=== PATIENT | female | born 1945 | race Caucasian/White ===

== ENCOUNTER → 2017-07-13 | Outpatient (CLI) | payer OTHER ==
[2017-07-13 17:24] LABS: URINE APPEARANCE CLOUDY (CLEAR); URINE COLOR DK YELLOW; URINE EPITHELIAL CELL AUTO >30 /lpf (0-5); URINE NITRITE NEG (NEG); URINE SPECIFIC GRAVITY 1.024 (1.000-1.030); UROBILINOGEN NEG (NEG)
[2017-07-13 17:40] LABS: MANUAL MICROSCOPIC REQUIRED? NO; REVIEW REQ? YES; URINE BILIRUBIN 1+ (NEG)
[2017-07-13 17:55] LABS: URINE MUCUS PRESENT (NONE PRSENT)
== END | disposition home or self-care (01) ==
LOC: C.LABPBG 12:08
PROVIDERS: ATTEND Family Medicine
DX: R30.0 Dysuria (principal)

== ENCOUNTER → 2017-07-26 | Outpatient (CLI) | payer OTHER ==
[~2017-07-26] MED LIST: METO25TA3 PO
[2017-07-26 17:34] LABS: BASO % 0.3 %; BASO ABS # 0.03 K/uL (0-0.2); COMPLETE YES; EOS % 0.7 %; HEMATOCRIT 44.5 % (37-47); IG% 0.3 %; LYMPH % 33.7 %; LYMPH ABS # 3.16 K/uL (1.2-3.4); MEAN CELL VOLUME 93.5 fL (80-100); MEAN CORPUSCULAR HEMOGLOBIN 30.3 pg (25-34); MEAN CORPUSCULAR HGB CONC 32.4 g/dl (32-36); MEAN PLATELET VOLUME 12.9 fL (7.4-10.4); MONO % 10.8 %; NEUT % 54.2 %; PLATELET COUNT 238 K/uL (130-400); RED BLOOD COUNT 4.76 M/uL (4.2-5.4); WHITE BLOOD COUNT 9.37 K/uL (4.8-10.8)
[2017-07-26 17:59] LABS: ALT/SGPT 15 U/L (12-78); AST/SGOT 19 U/L (15-37); BLOOD UREA NITROGEN 14 mg/dl (7-18); BUN/CREATININE RATIO 25.2 (10-20); CALCIUM 8.6 mg/dl (8.5-10.1); CARBON DIOXIDE 33 mmol/L (21-32); CHLORIDE 97 mmol/L (98-107); CREATININE 0.56 mg/dl (0.60-1.20); GLUCOSE 102 mg/dl (70-99); MAGNESIUM 2.1 mg/dl (1.8-2.4); POTASSIUM 2.8 mmol/L (3.5-5.1); SODIUM 135 mmol/L (136-145)
[2017-07-26 18:01] LABS: ALKALINE PHOSPHATASE 71 U/L (45-117)
== END | disposition home or self-care (01) ==
LOC: C.LABPBG 14:38
PROVIDERS: ATTEND Family Medicine
DX: E87.6 Hypokalemia (principal); R11.2 Nausea with vomiting, unspecified; K80.20 Calculus of gallbladder without cholecystitis without obstruction

== ENCOUNTER 2017-07-27 09:28 | Emergency (ER) | payer OTHER ==
[~2017-07-27] VITALS: Ht 165.1 cm; Wt 60.0 kg
[2017-07-27 09:35] VITALS: TEMP 36.9; Ht 165.1 cm; Wt 60.0 kg
[2017-07-27] MEDS ORDERED: POTASSIUM CHLR 20 MEQ / WTR 40 MEQ in PREMIXED WATER 100 ML IV STA (09:55)
[2017-07-27] MEDS ORDERED: SODIUM CHLORIDE 0.9% 1000ML 1,000 ML IV STA (09:55)
[2017-07-27] MEDS ORDERED: POTASSIUM CHLORIDE 10 MEQ TABCR PO STA (09:55)
--- NOTE | 2017-07-27 10:15 | EMERGENCY ROOM VISIT NOTE ---
History Report prepared by Roz: Nidhi Harkins Under the Supervision of: Dr. Yovanny Cardona M.D. First contact with patient: 09:46 Chief Complaint: ABNORMAL LABS Stated Complaint: LOW POTASSIUM-REF BY History of Present Illness The patient is a 72 year old female who presents to the Emergency Room with evaluation for persistent low potassium at 2.8 [employer]. She was seen by her PCP to have her blood drawn yesterday and was notified to come in to the ED to be evaluated for low potassium levels. She reports having her blood checked last week, which also showed low potassium levels. She notes having intermittent nausea, vomiting, and diarrhea for the last month, which she assumed was due to her bladder infection. She also reports intermittent loss of appetite, fatigue, and congestion with a "stuffy nose." She notes the last time she vomited was two days ago and the last time she had diarrhea was yesterday. She has been taking antibiotics. She denies taking any potassium supplements or blood thinners. She takes blood pressure medication. She denies any fevers, headaches , dizziness, chills, coughs, abdominal pain, or dysuria. She notes only having lower abdominal pressure with her UTI, but never any pain, though the pressure has resolved. She reports a recent history of gallbladder stones She also reports having lost 18 pounds in the last month, which she states is abnormal for her. 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 She reports 18 pound weight loss. Review of Systems See HPI for pertinent positives and negatives. A total of ten systems were reviewed and were otherwise negative. Past Medical & Surgical Medical Problems: (1) Hypokalemia (2) Influenza A UTI (urinary tract infection) Family History no pertinent family history obtained. Social History Smoking Status: Current Every Day Smoker Drug Use: none Housing Status: lives with family Occupation Status: unemployed Current/Historical Medications Scheduled Metoprolol Succ (Toprol Xl) (Toprol-Xl), 25 MG PO DAILY Allergies Coded Allergies: Codeine (Unverified Adverse Reaction, Intermediate, STOMACH PAIN, 07/27/17) Physical Exam Vital Signs Date Time Temp Pulse Resp B/P (MAP) Pulse Ox O2 Delivery O2 Flow Rate FiO2 07/27/17 15:08 74 22 128/75 94 07/27/17 14:01 73 20 195/76 95 Room Air 07/27/17 12:09 76 20 211/66 95 Room Air 07/27/17 11:39 64 20 201/98 98 07/27/17 10:37 69 20 205/91 98 07/27/17 10:30 68 07/27/17 09:35 36.9 78 20 105/55 95 Room Air Physical Exam GENERAL: Awake, alert, fatigue appearing and in no distress HENT: Normocephalic, atraumatic. Oropharynx unremarkable. Dry cracked mucus membranes. EYES: Normal conjunctiva. Sclera non-icteric. NECK: Supple. No nuchal rigidity. FROM. No JVD. RESPIRATORY: Clear to auscultation. CARDIAC: Regular rate, normal rhythm. Extremities warm and well perfused. Pulses equal. ABDOMEN: Soft, non-distended. No tenderness to palpation. No rebound or guarding. No masses. RECTAL: Deferred. MUSCULOSKELETAL: Chest examination reveals no tenderness. The back is symmetrical on inspection without obvious abnormality. There is no CVA tenderness to palpation. No joint edema. LOWER EXTREMITIES: Calves are equal size bilaterally and non-tender. No edema. No discoloration. NEURO: Normal sensorium. No sensory or motor deficits noted. Negative [place] signs. SKIN: No rash or jaundice noted. Medical Decision & Procedures Laboratory Results 07/27/17 09:55 Red Blood Count 4.70, Mean Corpuscular Volume 91.5, Mean Corpuscular Hemoglobin 29.6, Mean Corpuscular Hemoglobin Concent 32.3, Mean Platelet Volume 12.1, Neutrophils (%) (Auto) 51.0, Lymphocytes (%) (Auto) 36.8, Monocytes (%) (Auto) 11.2, Eosinophils (%) (Auto) 0.5, Basophils (%) (Auto) 0.3, Neutrophils # (Auto ) 4.52, Lymphocytes # (Auto) 3.26, Monocytes # (Auto) 0.99, Eosinophils # (Auto ) 0.04, Basophils # (Auto) 0.03 07/27/17 09:55 Test 07/27/17 09:55 07/27/17 12:13 07/27/17 12:20 White Blood Count 8.86 K/uL (4.8-10.8) Red Blood Count 4.70 M/uL (4.2-5.4) Hemoglobin 13.9 g/dL (12.0-16.0) Hematocrit 43.0 % (37-47) Mean Corpuscular Volume 91.5 fL (80-100) Mean Corpuscular Hemoglobin 29.6 pg (25-34) Mean Corpuscular Hemoglobin Concent 32.3 g/dl (32-36) Platelet Count 227 K/uL (130-400) Mean Platelet Volume 12.1 fL (7.4-10.4) Neutrophils (%) (Auto) 51.0 % Lymphocytes (%) (Auto) 36.8 % Monocytes (%) (Auto) 11.2 % Eosinophils (%) (Auto) 0.5 % Basophils (%) (Auto) 0.3 % Neutrophils # (Auto) 4.52 K/uL (1.4-6.5) Lymphocytes # (Auto) 3.26 K/uL (1.2-3.4) Monocytes # (Auto) 0.99 K/uL (0.11-0.59) Eosinophils # (Auto) 0.04 K/uL (0-0.5) Basophils # (Auto) 0.03 K/uL (0-0.2) RDW Standard Deviation 46.5 fL (36.4-46.3) RDW Coefficient of Variation 13.9 % (11.5-14.5) Immature Granulocyte % (Auto) 0.2 % Immature Granulocyte # (Auto) 0.02 K/uL (0.00-0.02) Anion Gap 8.0 mmol/L (3-11) Est Creatinine Clear Calc Drug Dose 89.7 ml/min Estimated GFR () 111.3 Estimated GFR (Non- 96.1 BUN/Creatinine Ratio 17.8 (10-20) Calcium Level 8.8 mg/dl (8.5-10.1) Phosphorus Level 3.1 mg/dl (2.5-4.9) Magnesium Level 2.2 mg/dl (1.8-2.4) Total Bilirubin 0.6 mg/dl (0.2-1) Direct Bilirubin 0.2 mg/dl (0-0.2) Aspartate Amino Transf (AST/SGOT) 16 U/L (15-37) Alanine Aminotransferase (ALT/SGPT) 13 U/L (12-78) Alkaline Phosphatase 71 U/L (45-117) Total Protein 7.0 gm/dl (6.4-8.2) Albumin 3.5 gm/dl (3.4-5.0) Lipase 118 U/L (73-393) Influenza Type A Antigen POS for Influ A (NEG) Influenza Type B Antigen Neg for Influ B (NEG) Urine Color YELLOW Urine Appearance CLEAR (CLEAR) Urine pH 7.5 (4.5-7.5) Urine Specific [place] 1.005 (1.000-1.030) Urine Protein NEG (NEG) Urine Glucose (UA) NEG (NEG) Urine Ketones NEG (NEG) Urine Occult Blood NEG (NEG) Urine Nitrite NEG (NEG) Urine Bilirubin NEG (NEG) Urine Urobilinogen NEG (NEG) Urine Leukocyte Esterase TRACE (NEG) Urine WBC (Auto) 1-5 /hpf (0-5) Urine RBC (Auto) 0-4 /hpf (0-4) Urine Hyaline Casts (Auto) 1-5 /lpf (0-5) Urine Epithelial Cells (Auto) 20-30 /lpf (0-5) Urine Bacteria (Auto) NEG (NEG) Laboratory results reviewed by me Medications Administered Medications (Trade) Dose Ordered Sig/Rhoda Route Start Time Stop Time Status Last Admin Dose Admin Potassium Chloride (Klor-Con M10) 40 meq NOW STAT PO 07/27/17 09:55 07/27/17 09:59 DC 07/27/17 10:35 40 MEQ Sodium Chloride 1,000 ml @ 250 mls/hr Q4H STAT IV 07/27/17 09:55 07/27/17 13:54 DC 07/27/17 10:35 250 MLS/HR Potassium Chloride 10 meq/ Prmx 100 ml @ 100 mls/hr Q1H IV 07/27/17 10:00 07/27/17 13:59 DC 07/27/17 14:00 100 MLS/HR Metoprolol Succinate (Toprol Xl Tab) 25 mg NOW STAT PO 07/27/17 13:02 07/27/17 13:03 DC 07/27/17 13:22 25 MG ED Course 0946: The patient was evaluated in room A11B. A complete history and physical exam was performed. 1033: I reassessed the patient at this time. She is feeling better and resting comfortably. 1400: I reassessed the patient at this time. She is feeling better and resting comfortably. I discussed the results and treatment plan with the patient. I answered all pertaining questions that she had. She expressed understanding and verbalized agreement. The patient will be discharged home. Medical Decision I reviewed the patient's past medical history, medications, and the nursing notes as described above. Differential diagnoses: dehydration, electrolytes abnormality, UTI, gastritis, and gastroenteritis. The patient is a 72-year-old woman presents to emergency department after having outpatient labs that showed a potassium of 2.8 in the setting of having a UTI last month with subsequent intermittent nausea and vomiting and diarrhea per history of present illness. On arrival the patient is fatigued appearing but in no acute distress, afebrile stable vital signs. On exam she is clinically dry with dry cracked mucous membranes. Labs notable for potassium of 3.0. Labs otherwise unremarkable. Patient was given 40meq of IV and PO KCl. Plan for recheck outpatient. Findings and plan for follow-up reviewed with patient. Patient agreeable and d/c'd per discharge instructions. Medication Reconcilliation Current Medication List: was personally reviewed by me Blood Pressure Screening Patient's blood pressure: Elevated blood pressure Blood pressure disposition: Elevated BP felt to be situational Impression Primary Impression: Hypokalemia Additional Impression: Influenza A Scribe Attestation The scribe's documentation has been prepared under my direction and personally reviewed by me in its entirety. I confirm that the note above accurately reflects all work, treatment, procedures, and medical decision making performed by me. Departure Information Dispostion Home / Self-Care Referrals No Doctor, Assigned (PCP) Forms HOME CARE DOCUMENTATION FORM, IMPORTANT VISIT INFORMATION, WORK / SCHOOL INSTRUCTIONS Patient Instructions Hypokalemia Emelyn Kumar [facility] Additional Instructions Please follow up with your primary care physician tomorrow for re-evaluation and to repeat your potassium. You flu test was positive for infuenza A. The treatment for this is supportive and ensuring you stay hydrated. Otherwise, your exam, EKG, and lab results did not show signs of an emergent condition at this time. Use daily multivitamin. Return to the emergency department for worsening symptoms as described in the accompanying instructions. Problem Qualifiers
[2017-07-27 10:19] LABS: BASO % 0.3 %; BASO ABS # 0.03 K/uL (0-0.2); COMPLETE YES; EOS % 0.5 %; IG% 0.2 %; LYMPH % 36.8 %; LYMPH ABS # 3.26 K/uL (1.2-3.4); MEAN CELL VOLUME 91.5 fL (80-100); MEAN CORPUSCULAR HEMOGLOBIN 29.6 pg (25-34); MEAN CORPUSCULAR HGB CONC 32.3 g/dl (32-36); MEAN PLATELET VOLUME 12.1 fL (7.4-10.4); MONO % 11.2 %; PLATELET COUNT 227 K/uL (130-400); WHITE BLOOD COUNT 8.86 K/uL (4.8-10.8)
[2017-07-27] MEDS: POTASSIUM CHLR 10MEQ / WTR IV SCH ×4 (10:37→14:00)
[2017-07-27 10:40] LABS: BUN/CREATININE RATIO 17.8 (10-20); CALCIUM 8.8 mg/dl (8.5-10.1); CREATININE 0.51 mg/dl (0.60-1.20); MAGNESIUM 2.2 mg/dl (1.8-2.4)
[2017-07-27 10:41] LABS: PHOSPHORUS 3.1 mg/dl (2.5-4.9)
[2017-07-27] MEDS ORDERED: METO25TA3 PO (11:01)
[2017-07-27 12:40] LABS: URINE APPEARANCE CLEAR (CLEAR); URINE BILIRUBIN NEG (NEG); URINE COLOR YELLOW; URINE EPITHELIAL CELL AUTO 20-30 /lpf (0-5); URINE NITRITE NEG (NEG); URINE PH 7.5 (4.5-7.5); URINE SPECIFIC GRAVITY 1.005 (1.000-1.030); UROBILINOGEN NEG (NEG); ZZUR CULT IF INDIC CLEAN CATCH NO
[2017-07-27 12:56] LABS: MANUAL MICROSCOPIC REQUIRED? NO; REVIEW REQ? NO
[2017-07-27] MEDS ORDERED: METOPROLOL SUCC 50MG EXT REL TAB PO STA (13:02)
[2017-07-27 15:08] VITALS: BP 128/75; PULSE 74; O2SAT 94
== END 2017-07-27 15:09 | disposition home or self-care (01) ==
LOC: C.EDB 09:29 → C.EDA 15:09
DX: E87.6 Hypokalemia (principal); J10.1 Influenza due to other identified influenza virus with other respiratory manifestations; Z87.440 Personal history of urinary (tract) infections; F17.210 Nicotine dependence, cigarettes, uncomplicated; Z79.899 Other long term (current) drug therapy

== ENCOUNTER → 2017-07-28 | Outpatient (CLI) | payer OTHER ==
[2017-07-28 12:21] LABS: BLOOD UREA NITROGEN 8 mg/dl (7-18); BUN/CREATININE RATIO 16.8 (10-20); CALCIUM 8.6 mg/dl (8.5-10.1); CARBON DIOXIDE 30 mmol/L (21-32); CHLORIDE 104 mmol/L (98-107); CREATININE 0.48 mg/dl (0.60-1.20); GLUCOSE 95 mg/dl (70-99); POTASSIUM 3.4 mmol/L (3.5-5.1); SODIUM 140 mmol/L (136-145)
== END | disposition home or self-care (01) ==
LOC: C.LABPBG 10:07
PROVIDERS: ATTEND Family Medicine
DX: E87.6 Hypokalemia (principal)

== ENCOUNTER → 2017-08-19 | Outpatient (CLI) | payer OTHER ==
[~2017-08-19] MED LIST changes: +LISI-461 PO; +METO-217 PO; +OPTIRAY 320 IV PRN; +SULF800T23 PO
--- NOTE | 2017-08-19 12:26 | DIAGNOSTIC IMAGING REPORT ---
CT ANGIOGRAPHY OF THE NECK WITH CONTRAST CLINICAL HISTORY: Occlusion and stenosis of bilateral carotid arteries. COMPARISON STUDY: No previous studies for comparison. Technique: CT angiography of the carotid and vertebral arteries was obtained using Optiray 320 IV and 3D reconstruction on an independent workstation. NASCET criteria was utilized. A dose lowering technique was utilized adhering to the principles of ALARA. Injection of 93 cc of Optiray 320 IV was uneventful. The neck was rescanned given motion artifact on initial study. No additional contrast was administered. CT DOSE: 1951.37 mGycm Findings: This exam is significantly compromised by motion artifact. The origins of the great vessels were not entirely imaged on this examination. There is extensive atherosclerotic plaque within the bilateral common carotid and internal carotid arteries. There is no significant stenosis of the right common carotid artery. There is narrowing of the proximal right internal carotid artery due to calcified plaque. However, the degree of stenosis is suboptimally assessed due to motion artifact. There is suspected 40-50% narrowing of the proximal right internal carotid artery. There may be severe stenosis at the origin of the right external carotid artery which is difficult to assess on this exam. There is extensive plaque within the left common carotid artery which may be ulcerated. This results in mild narrowing of the distal left common carotid artery. There is extensive plaque within the proximal left internal carotid artery. Degree of stenosis is difficult to assess given motion artifact and extensive calcification. Moderate to severe stenosis is suspected. Short segment occlusion cannot be excluded. The internal carotid arteries at the level the skull base are suboptimally assessed on this exam as well. The origins of the bilateral vertebral arteries are suboptimally assessed but these vessels appear patent. There is moderate plaque within the bilateral vertebral arteries without severe stenosis within visualized portions. Several thyroid nodules. IMPRESSION: 1. Exam significantly compromised by motion artifact and extensive calcified plaque. Therefore, degree of stenosis of the proximal bilateral internal carotid arteries is difficult to assess and a repeat study might be considered. Suspected 40-50% narrowing of the proximal right internal carotid artery with suspected moderate to high-grade stenosis of the proximal left internal carotid artery. Short segment occlusion of the proximal left internal carotid artery cannot be excluded on this exam although is probably artifactual. 2. Origins of great vessels not well evaluated on this exam. No severe stenosis of the bilateral vertebral arteries. Electronically signed by: Lisandro Piña M.D. 08/19/2017 12:24 PM Dictated Date/Time: 08/19/2017 10:37 AM
== END | disposition home or self-care (01) ==
LOC: C.CTS 09:56
PROVIDERS: ATTEND Physician Assistant
DX: I65.23 Occlusion and stenosis of bilateral carotid arteries (principal)

== ENCOUNTER 2017-08-25 11:51 | Emergency (ER) | payer OTHER ==
[~2017-08-25] VITALS: Ht 165.1 cm; Wt 56.8 kg
[~2017-08-25 11:51] MED LIST changes: -LISI-461 PO; -METO-217 PO; -OPTIRAY 320 IV PRN; -SULF800T23 PO
[2017-08-25 11:54] VITALS: TEMP 36.9; Ht 165.1 cm; Wt 56.8 kg
[2017-08-25] MEDS ORDERED: ONDANSETRON INJ 2 MG/ML 2 ML VIAL IV STA (12:13)
[2017-08-25] MEDS ORDERED: SODIUM CHLORIDE 0.9% 500ML 500 ML IV STA (12:13)
[2017-08-25 12:33] LABS: BASO % 0.2 %; BASO ABS # 0.03 K/uL (0-0.2); EOS % 0.3 %; EOS ABS # 0.04 K/uL (0-0.5); HEMATOCRIT 44.8 % (37-47); HEMOGLOBIN 15.3 g/dL (12.0-16.0); IG# 0.05 K/uL (0.00-0.02); LYMPH % 20.9 %; LYMPH ABS # 3.06 K/uL (1.2-3.4); MEAN CORPUSCULAR HEMOGLOBIN 31.4 pg (25-34); MEAN CORPUSCULAR HGB CONC 34.2 g/dl (32-36); MEAN PLATELET VOLUME 12.1 fL (7.4-10.4); MONO % 9.7 %; MONO ABS # 1.41 K/uL (0.11-0.59); NEUT % 68.6 %; NEUT ABS # 10.02 K/uL (1.4-6.5); PLATELET COUNT 256 K/uL (130-400); RED CELL DISTRIBUTION WIDTH CV 14.2 % (11.5-14.5); RED CELL DISTRIBUTION WIDTH SD 47.5 fL (36.4-46.3); WHITE BLOOD COUNT 14.61 K/uL (4.8-10.8)
[2017-08-25 12:45] LABS: PTT PATIENT 24.7 SECONDS (21.0-31.0)
[2017-08-25 12:57] LABS: ALBUMIN 3.8 gm/dl (3.4-5.0); CALCIUM 9.3 mg/dl (8.5-10.1); CREATININE 0.57 mg/dl (0.60-1.20); POTASSIUM 2.9 mmol/L (3.5-5.1)
[2017-08-25] MEDS ORDERED: LISI-461 PO (13:00)
[2017-08-25] MEDS ORDERED: METO-217 PO (13:00)
[2017-08-25 13:01] LABS: TOTAL PROTEIN 7.7 gm/dl (6.4-8.2)
[2017-08-25] MEDS ORDERED: POTASSIUM CHLORIDE 10 MEQ TABCR PO STA (13:22)
[2017-08-25] MEDS ORDERED: POTASSIUM CHLORIDE 10 MEQ / 100ML WTR IV STA (13:22)
--- NOTE | 2017-08-25 13:22 | DIAGNOSTIC IMAGING REPORT ---
CT SCAN OF THE ABDOMEN AND PELVIS WITHOUT IV CONTRAST CLINICAL HISTORY: Left-sided abdominal pain. COMPARISON STUDY: No priors. TECHNIQUE: CT scan of the abdomen and pelvis is performed from the lung bases to the proximal femora. Images are reviewed in the axial, sagittal, and coronal planes. IV contrast was not administered for this examination as per the referring clinician. A dose lowering technique was utilized adhering to the principles of ALARA. CT DOSE: 352.26 mGy.cm FINDINGS: Lung bases: The heart is mildly enlarged and without pericardial effusion. Emphysematous change is present at the lung bases. There is a fat-containing Bochdalek hernia seen at the left lung base. No airspace consolidation or pleural effusion is identified. There is a 4 mm left lower lobe pulmonary nodule seen on image #23. Liver: The unenhanced liver is normal in size, contour, and attenuation. There is no intrahepatic biliary ductal dilatation. Gallbladder: A large calcified gallstone is seen in the region of the gallbladder neck. The gallbladder is distended. There is no convincing CT evidence of acute cholecystitis. Spleen: Normal in size and attenuation. Pancreas: The unenhanced pancreas is atrophic and grossly unremarkable. Adrenal glands: There is nodular thickening of the left adrenal gland. This meets CT criteria for a fat-containing adenoma. The right adrenal gland is unremarkable. Kidneys: The unenhanced kidneys are normal in size. There is no right-sided hydronephrosis. There is mild fullness of the left renal collecting system. There are no renal calculi identified. Renovascular calcifications are observed. There is no evidence of contour deforming renal mass lesion. Abdominal vasculature: The abdominal aorta is normal in course and caliber noting advanced atherosclerotic calcification. Bowel: There is no bowel obstruction. Mild wall thickening is suggested in the sigmoid colon and there are prominent pericolonic lymph nodes. There is mild colonic diverticulosis without CT evidence of acute diverticulitis. The appendix is well-visualized and normal. Peritoneum: There is no intraperitoneal free air or abdominal ascites. Lymphadenopathy: None. Pelvic viscera: The bladder, uterus, and adnexa are normal as visualized. Skeletal structures: The skeletal structures are osteopenic. Advanced arthritic change is present in the hips. Mild to moderate lumbosacral spondylosis is observed. A large disc herniation is suggested at L3-L4. Sclerotic change is identified involving the sacroiliac joints. No lytic or blastic lesions are seen. IMPRESSION: 1. There is mild fullness of the left renal collecting system. No renal calculi are identified and this is of indeterminate, if any, clinical significance. This could possibly represent the sequelae of a recently passed kidney stone or could be related to infection. Correlation with clinical findings and urinalysis will be essential. 2. Question mild wall thickening of the sigmoid colon. There are prominent pericolic lymph nodes. Correlate clinically for evidence of a mild nonspecific colitis. This can be followed with colonoscopy if not recently performed. 3. Advanced emphysema. 4. There is a large calcified gallstone in the region of the gallbladder neck. The gallbladder is mildly distended but otherwise normal in appearance. Correlation with clinical findings and serum bilirubin levels will be required. If further assessment of the gallbladder is desired then ultrasound would be appropriate. 5. There is a 4 mm pulmonary nodule at the left lung base. Consider nonemergent follow-up assessment of the thorax with a chest CT. 6. Additional findings as above. Electronically signed by: Derek Cheatham M.D. 08/25/2017 1:21 PM Dictated Date/Time: 08/25/2017 1:11 PM
[2017-08-25] MEDS ORDERED: POTASSIUM CHLR 10MEQ / WTR IV ONE (14:00)
[2017-08-25] MEDS ORDERED: SULFAMETHOXAZOLE/TRIMETHOPRIM DS 800/160MG TAB PO STA (14:03)
[2017-08-25 15:03] VITALS: BP 150/83; PULSE 85; O2SAT 95
[2017-08-25] MEDS ORDERED: SULF800T23 PO (15:22)
--- NOTE | 2017-08-25 19:05 | EMERGENCY ROOM VISIT NOTE ---
History Report prepared by Roz: Malia Reyes Under the Supervision of: Dr. Remy Rodriguez M.D. First contact with patient: 12:00 Chief Complaint: URINARY SYMPTOMS Stated Complaint: WEAKNESS,LOW BACK PAIN,KIDNEY PAIN Nursing Triage Summary: Pt c/o low back pain x 2 days, bilateral, mostly on left. Urinating small amounts. Can't eat like when my Potassium was low. Hx Low Potassium 2 weeks ago and UTI a month ago. Associates N/V/D History of Present Illness The patient is a 72 year old female who presents to the Emergency Room with complaints of persistent abdominal pain starting 2 days ago. She reports lower abdominal pain which she describes as a pressure. The pain goes into her lower back. The patient has been vomiting and feeling gassy after eating for the past 2 days. She also started having diarrhea 2 days ago which also occurs after eating. She has had a decreased appetite and has not been eating or drinking normally. She has been feeling gradually weaker over the past 2 days. She notes that she had these same symptoms around 1 month ago when she had low potassium and influenza. She denies any urinary frequency, urgency or burning with urination. She has been urinating less, but notes that she has not been drinking fluids. She denies any fever, chest pain, bloody stools, or SOB. She has been told that she has a borderline gallbladder which might require surgery in the future. She denies any pain in the upper abdomen. Source of History: patient, family Onset: 2 days ago Position: abdomen (lower) Symptom Intensity: mild Quality: pressure Timing: other (persistent) Associated Symptoms: + vomiting, + back pain, + diarrhea, + weakness, No fevers, No chest pain, No SOB, No hematochezia, No urinary symptoms Review of Systems See HPI for pertinent positives & negatives. A total of 10 systems reviewed and were otherwise negative. Past Medical & Surgical Medical Problems: (1) Hypokalemia (2) Influenza A Family History No pertinent family history stated. Social History Smoking Status: Light Tobacco Smoker Drug Use: none Housing Status: lives with family Occupation Status: unemployed Current/Historical Medications Scheduled Lisinopril (Zestril), 10 MG PO DAILY Metoprolol Succinate (Toprol Xl), 50 MG PO DAILY Sulfa/Trimethoprim (Bactrim Ds 800MG/160MG), 1 TAB PO BID Allergies Coded Allergies: Codeine (Unverified Adverse Reaction, Intermediate, STOMACH PAIN, 08/25/17) Physical Exam Vital Signs Date Time Temp Pulse Resp B/P (MAP) Pulse Ox O2 Delivery O2 Flow Rate FiO2 08/25/17 15:03 85 20 150/83 95 Room Air 08/25/17 14:00 81 08/25/17 13:13 90 18 146/58 98 08/25/17 11:54 36.9 106 18 92/63 92 Room Air Physical Exam Constitutional: Vital signs reviewed. She is mildly hypotensive. Eyes: Pupils are equal round reactive to light. Conjunctiva are noninjected. ENT: Pharynx is clear without erythema or exudate. Mucous membranes are dry. Neck supple without meningeal signs. Respiratory: Clear to auscultation bilaterally. Breath sounds are equal bilaterally. Cardiovascular: Regular rate and rhythm. No rubs or gallops. GI: Soft, nondistended. LLQ suprapubic mild tenderness without guarding. Bowel sounds are present. Musculoskeletal: No peripheral edema. No lower extremity tenderness. No CVA tenderness. Integumentary: No cyanosis. Neurological: The patient is awake and alert. No focal deficits. Psychiatric: Normal affect. Medical Decision & Procedures ER Provider Diagnostic Interpretation: Radiology results as stated below per my review and the radiologist's interpretation: CT SCAN OF THE ABDOMEN AND PELVIS WITHOUT IV CONTRAST CLINICAL HISTORY: Left-sided abdominal pain. COMPARISON STUDY: No priors. TECHNIQUE: CT scan of the abdomen and pelvis is performed from the lung bases to the proximal femora. Images are reviewed in the axial, sagittal, and coronal planes. IV contrast was not administered for this examination as per the referring clinician. A dose lowering technique was utilized adhering to the principles of ALARA. CT DOSE: 352.26 mGy.cm FINDINGS: Lung bases: The heart is mildly enlarged and without pericardial effusion. Emphysematous change is present at the lung bases. There is a fat-containing Bochdalek hernia seen at the left lung base. No airspace consolidation or pleural effusion is identified. There is a 4 mm left lower lobe pulmonary nodule seen on image #23. Liver: The unenhanced liver is normal in size, contour, and attenuation. There is no intrahepatic biliary ductal dilatation. Gallbladder: A large calcified gallstone is seen in the region of the gallbladder neck. The gallbladder is distended. There is no convincing CT evidence of acute cholecystitis. Spleen: Normal in size and attenuation. Pancreas: The unenhanced pancreas is atrophic and grossly unremarkable. Adrenal glands: There is nodular thickening of the left adrenal gland. This meets CT criteria for a fat-containing adenoma. The right adrenal gland is unremarkable. Kidneys: The unenhanced kidneys are normal in size. There is no right-sided hydronephrosis. There is mild fullness of the left renal collecting system. There are no renal calculi identified. Renovascular calcifications are observed. There is no evidence of contour deforming renal mass lesion. Abdominal vasculature: The abdominal aorta is normal in course and caliber noting advanced atherosclerotic calcification. Bowel: There is no bowel obstruction. Mild wall thickening is suggested in the sigmoid colon and there are prominent pericolonic lymph nodes. There is mild colonic diverticulosis without CT evidence of acute diverticulitis. The appendix is well-visualized and normal. Peritoneum: There is no intraperitoneal free air or abdominal ascites. Lymphadenopathy: None. Pelvic viscera: The bladder, uterus, and adnexa are normal as visualized. Skeletal structures: The skeletal structures are osteopenic. Advanced arthritic change is present in the hips. Mild to moderate lumbosacral spondylosis is observed. A large disc herniation is suggested at L3-L4. Sclerotic change is identified involving the sacroiliac joints. No lytic or blastic lesions are seen. IMPRESSION: 1. There is mild fullness of the left renal collecting system. No renal calculi are identified and this is of indeterminate, if any, clinical significance. This could possibly represent the sequelae of a recently passed kidney stone or could be related to infection. Correlation with clinical findings and urinalysis will be essential. 2. Question mild wall thickening of the sigmoid colon. There are prominent pericolic lymph nodes. Correlate clinically for evidence of a mild nonspecific colitis. This can be followed with colonoscopy if not recently performed. 3. Advanced emphysema. 4. There is a large calcified gallstone in the region of the gallbladder neck. The gallbladder is mildly distended but otherwise normal in appearance. Correlation with clinical findings and serum bilirubin levels will be required. If further assessment of the gallbladder is desired then ultrasound would be appropriate. 5. There is a 4 mm pulmonary nodule at the left lung base. Consider nonemergent follow-up assessment of the thorax with a chest CT. 6. Additional findings as above. Electronically signed by: Derek Cheatham M.D. 08/25/2017 1:21 PM Dictated Date/Time: 08/25/2017 1:11 PM Laboratory Results 08/25/17 12:21 Red Blood Count 4.87, Mean Corpuscular Volume 92.0, Mean Corpuscular Hemoglobin 31.4, Mean Corpuscular Hemoglobin Concent 34.2, Mean Platelet Volume 12.1, Neutrophils (%) (Auto) 68.6, Lymphocytes (%) (Auto) 20.9, Monocytes (%) (Auto) 9.7, Eosinophils (%) (Auto) 0.3, Basophils (%) (Auto) 0.2, Neutrophils # (Auto) 10.02, Lymphocytes # (Auto) 3.06, Monocytes # (Auto) 1.41, Eosinophils # (Auto) 0.04, Basophils # (Auto) 0.03 08/25/17 12:21 Test 08/25/17 12:21 08/25/17 13:14 White Blood Count 14.61 K/uL (4.8-10.8) Red Blood Count 4.87 M/uL (4.2-5.4) Hemoglobin 15.3 g/dL (12.0-16.0) Hematocrit 44.8 % (37-47) Mean Corpuscular Volume 92.0 fL (80-100) Mean Corpuscular Hemoglobin 31.4 pg (25-34) Mean Corpuscular Hemoglobin Concent 34.2 g/dl (32-36) Platelet Count 256 K/uL (130-400) Mean Platelet Volume 12.1 fL (7.4-10.4) Neutrophils (%) (Auto) 68.6 % Lymphocytes (%) (Auto) 20.9 % Monocytes (%) (Auto) 9.7 % Eosinophils (%) (Auto) 0.3 % Basophils (%) (Auto) 0.2 % Neutrophils # (Auto) 10.02 K/uL (1.4-6.5) Lymphocytes # (Auto) 3.06 K/uL (1.2-3.4) Monocytes # (Auto) 1.41 K/uL (0.11-0.59) Eosinophils # (Auto) 0.04 K/uL (0-0.5) Basophils # (Auto) 0.03 K/uL (0-0.2) RDW Standard Deviation 47.5 fL (36.4-46.3) RDW Coefficient of Variation 14.2 % (11.5-14.5) Immature Granulocyte % (Auto) 0.3 % Immature Granulocyte # (Auto) 0.05 K/uL (0.00-0.02) Prothrombin Time 10.8 SECONDS (9.0-12.0) Prothromb Time International Ratio 1.0 (0.9-1.1) Activated Partial Thromboplast Time 24.7 SECONDS (21.0-31.0) Partial Thromboplastin Ratio 1.0 Anion Gap 7.0 mmol/L (3-11) Est Creatinine Clear Calc Drug Dose 80.0 ml/min Estimated GFR () 107.3 Estimated GFR (Non- 92.6 BUN/Creatinine Ratio 26.3 (10-20) Calcium Level 9.3 mg/dl (8.5-10.1) Magnesium Level 1.9 mg/dl (1.8-2.4) Total Bilirubin 1.3 mg/dl (0.2-1) Direct Bilirubin 0.3 mg/dl (0-0.2) Aspartate Amino Transf (AST/SGOT) 13 U/L (15-37) Alanine Aminotransferase (ALT/SGPT) 18 U/L (12-78) Alkaline Phosphatase 82 U/L (45-117) Total Protein 7.7 gm/dl (6.4-8.2) Albumin 3.8 gm/dl (3.4-5.0) Lipase 74 U/L (73-393) Urine Color ORANGE Urine Appearance CLOUDY (CLEAR) Urine pH 5.5 (4.5-7.5) Urine Specific [place] 1.025 (1.000-1.030) Urine Protein 2+ (NEG) Urine Glucose (UA) NEG (NEG) Urine Ketones 2+ (NEG) Urine Occult Blood NEG (NEG) Urine Nitrite POS (NEG) Urine Bilirubin NEG (NEG) Urine Urobilinogen NEG (NEG) Urine Leukocyte Esterase SMALL (NEG) Urine WBC (Auto) 5-10 /hpf (0-5) Urine RBC (Auto) 0-4 /hpf (0-4) Urine Hyaline Casts (Auto) 10-30 /lpf (0-5) Urine Epithelial Cells (Auto) >30 /lpf (0-5) Urine Bacteria (Auto) NEG (NEG) Urine Pathogenic Casts See comments /lpf (0) Laboratory results as reviewed by me. Medications Administered Medications (Trade) Dose Ordered Sig/Rhoda Route Start Time Stop Time Status Last Admin Dose Admin Ondansetron HCl (Zofran Inj) 4 mg NOW STAT IV 08/25/17 12:13 08/25/17 12:17 DC 08/25/17 12:26 4 MG Sodium Chloride 500 ml @ 999 mls/hr Q31M STAT IV 08/25/17 12:13 08/25/17 12:43 DC 08/25/17 12:26 999 MLS/HR Potassium Chloride (Klor-Con M10) 40 meq NOW STAT PO 08/25/17 13:22 08/25/17 13:23 DC 08/25/17 13:34 40 MEQ Potassium Chloride 10 meq/ Prmx 100 ml @ 100 mls/hr NOW ONCE IV 08/25/17 14:00 08/25/17 14:59 DC 08/25/17 13:56 100 MLS/HR Trimethoprim/ Sulfamethoxazole (Septra Ds 800/ 160MG Tab) 1 tab NOW STAT PO 08/25/17 14:03 08/25/17 14:05 DC 08/25/17 14:17 1 TAB ED Course 1203: The patient was evaluated in room B2. A complete history and physical exam was performed. 1213: NSS 500 ml @ 999 mls/hr IV, Zofran Inj 4 mg IV. 1322: Potassium Chloride 40 meq PO, Potassium Chloride 10 meq IV. 1326: I reevaluated the patient. She feels better. Her blood pressure is now 146 /58. I reviewed in detail the CT findings and blood work with the patient and her son as well as the need for follow up regarding the incidental findings. 1403: Trimethoprim/Sulfamethoxazole 1 tab PO. 1435: I reevaluated the patient. She is feeling better. She has a prescription for Zofran at home already and does not need one. I discussed the results with her. She verbalized agreement of the treatment plan. 1504: I reevaluated the patient. She has finished the potassium. She is ready for discharge. Medical Decision This is a 72-year-old female who presents with abdominal pain and weakness with vomiting and diarrhea. Differential diagnosis includes dehydration, electrolyte abnormality, foodborne illness, diverticulitis, UTI, acute kidney injury, kidney stone. I did perform a limited focused review of portions of the patient's old chart on the electronic medical record. The patient was here July 27 and diagnosed with influenza and had a potassium of 3. I did evaluate the patient as noted above. The patient is presenting with a 2 day history of generalized weakness with vomiting and diarrhea. She has had some lower abdominal pain radiating to her back and has not been able to eat or drink very much. On examination she does appear slightly dehydrated and has some mild tenderness in the suprapubic and left lower quadrant. She does state that she had similar symptoms about a month ago and was diagnosed with influenza and hypokalemia. IV access was established. I did treat the patient with Zofran and normal saline IV. I did order and personally review the patient 's urinalysis as described above. A urine culture was sent. The patient was treated with Bactrim. I did order and review the patient's blood work as noted in the electronic medical record. She has hypokalemia. I did treat her with IV KCl and oral potassium. I did order a CT of the abdomen and pelvis. I did review the images myself as well as the radiology report as described above. She does have multiple incidental findings which I discussed with her and her son. There is also some questionable signs of colitis in the sigmoid colon. I did reexamine the patient multiple times. She states that she feels much better. She is able to ambulate without assistance. Her blood pressure is significantly improved. She will follow up with her doctor for further evaluation. She also has an appointment to see a outreach counselor regarding the adrenal mass seen on CT scan. She was discharged with a prescription for Bactrim. She also has ondansetron at home. Medication Reconcilliation Current Medication List: was personally reviewed by me Blood Pressure Screening Patient's blood pressure: Low blood pressure Impression Primary Impression: Dehydration Additional Impressions: Vomiting Diarrhea Hypokalemia Scribe Attestation The scribe's documentation has been prepared under my direct and personally reviewed by me in its entirety. I confirm that the note above accurately reflects all work, treatment, procedures, and medical decision making performed by me. Departure Information Dispostion Home / Self-Care Prescriptions Sulfa/Trimethoprim (Bactrim Ds 800MG/160MG) Tab 1 TAB PO BID, #14 TAB Prov: Remy Rodriguez M.D. 08/25/17 Referrals Jamila Moncada DO (PCP) Forms HOME CARE DOCUMENTATION FORM, IMPORTANT VISIT INFORMATION Patient Instructions ED Dehydration, Hypokalemia Dc, My [facility] Additional Instructions You have been examined and treated today on an emergency basis only. This is not a substitute for, or an effort to provide, complete comprehensive medical care. It is impossible to recognize and treat all injuries or illnesses in a single emergency department visit. It is therefore important that you follow up closely with your physician. Call as soon as possible for an appointment. Also follow up with your outreach counselor as scheduled. Talk to your doctor about outpatient colonoscopy. Return for worsening symptoms or if you develop fever, blood in your stool, chest pain, shortness of breath or any other concerning symptoms. Problem Qualifiers Additional Impressions: Vomiting Vomiting type: unspecified Vomiting Intractability: non-intractable Nausea presence: with nausea Qualified Codes: R11.2 - Nausea with vomiting, unspecified Diarrhea Diarrhea type: unspecified type Qualified Codes: R19.7 - Diarrhea, unspecified
[2017-09-08] MEDS ORDERED: MULT-506 PO (14:55)
[2017-09-08] MEDS ORDERED: ONDA-170 PO (14:56)
[2017-10-26] MEDS ORDERED: LISI-726 PO (15:50)
[2017-12-02] MEDS ORDERED: METO100T44 PO (11:04)
[2017-12-02] MEDS ORDERED: IBUP-1459 PO (11:04)
[2017-12-15] MEDS ORDERED: AMLO10TA3 PO (17:53)
[2017-12-16] MEDS ORDERED: TRAM-10 PO (07:18)
== END 2017-08-25 15:22 | disposition home or self-care (01) ==
LOC: C.EDB 11:53
DX: E86.0 Dehydration (principal); R11.10 Vomiting, unspecified; R19.7 Diarrhea, unspecified; E87.6 Hypokalemia; F17.200 Nicotine dependence, unspecified, uncomplicated

== ENCOUNTER → 2017-09-03 | Outpatient (CLI) | payer OTHER ==
[~2017-09-03] MED LIST changes: +LISI-461 PO; +METO-217 PO; -METO25TA3 PO; +SULF800T23 PO
--- NOTE | 2017-09-03 09:36 | DIAGNOSTIC IMAGING REPORT ---
ULTRASOUND RIGHT UPPER QUADRANT ABDOMEN CLINICAL HISTORY: Right upper quadrant abdominal pain. COMPARISON STUDY: Abdominal CT dated 08/25/2017. TECHNIQUE: Real-time, grayscale, and color flow sonography of the right upper quadrant of the abdomen was performed. Images are reviewed in the transverse and longitudinal planes. FINDINGS: Liver: The liver is normal in size and slightly heterogeneous in echotexture. There is no intrahepatic biliary ductal dilatation. The main portal vein is patent. Gallbladder: The gallbladder is distended and filled with sludge and gallstones. A 1.1 cm nonmobile stone is seen in the region of the gallbladder neck. The gallbladder wall is top normal in thickness measuring up to 3 mm. No pericholecystic fluid is seen. A sonographic Palmer's sign is reportedly absent. The common bile duct measures up to 0.9 cm in diameter. Pancreas: Visualized portions of the pancreatic head and body are normal in appearance. The splenic vein is patent. Right kidney: Survey images of the right kidney demonstrate normal size and echotexture. There is no hydronephrosis. A 9 mm cyst is incidentally noted in the lower pole. Ascites: None. IMPRESSION: 1. The gallbladder is distended, and filled with both stones and sludge. Findings are equivocal for acute versus chronic cholecystitis which is not excluded. Surgical consultation is advised. If further assessment is desired a nuclear hepatobiliary scan could be considered. 2. The common bile duct measures up to 9 mm. No intraluminal filling defects are identified by ultrasound. 3. No intrahepatic biliary ductal dilatation is seen. Electronically signed by: Derek Cheatham M.D. 09/03/2017 9:35 AM Dictated Date/Time: 09/03/2017 9:30 AM
== END | disposition home or self-care (01) ==
LOC: C.ULTR 08:49
PROVIDERS: ATTEND Family Medicine
DX: K80.20 Calculus of gallbladder without cholecystitis without obstruction (principal); R10.11 Right upper quadrant pain

== ENCOUNTER 2017-09-13 06:26 | Inpatient (IN) | payer OTHER ==
[2017-09-13] VITALS (11 sets, daily range): BP systolic 101–199; BP diastolic 57–91; PULSE 81–91; TEMP 36.6–37.2; O2SAT 91–99; Ht 165.1 cm; Wt 61.3 kg
[~2017-09-13] VITALS: Ht 165.1 cm; Wt 61.3 kg
[~2017-09-13 06:26] MED LIST changes: +CEFOXITIN IV 2,000 MG in DEXTROSE 5% 50ML 50 ML IV SCH; +LACTATED RINGER'S 1000ML 1,000 ML IV SCH; +MULT-506 PO; +ONDA8TAB6 PO; -SULF800T23 PO
--- NOTE | 2017-09-13 07:24 | DIAGNOSTIC IMAGING REPORT ---
CHEST 2 VIEWS ROUTINE CLINICAL HISTORY: PREOPERATIVE EXAM COMPARISON STUDY: No previous studies for comparison. FINDINGS: Lung volumes are normal. No pneumothorax or pleural the effusion is present. There is no consolidation to suggest pneumonia. Pulmonary vascularity is normal. Cardiomediastinal silhouette is normal. IMPRESSION: No acute cardiopulmonary findings. Electronically signed by: Lisandro Piña M.D. 09/13/2017 7:22 AM Dictated Date/Time: 09/13/2017 7:21 AM
[2017-09-13] MEDS ORDERED: PHENYLEPHRINE 100MCG/ML 5ML SYR IV PRN (07:45)
[2017-09-13] MEDS ORDERED: FLUMAZENIL 0.1 MG/1 ML 10 ML VIAL IV PRN (07:45)
[2017-09-13] MEDS ORDERED: ATROPINE SULFATE 0.1 MG/ML 5ML SYR IV PRN (07:45)
[2017-09-13] MEDS ORDERED: NALOXONE HCL 0.4 MG/1 ML VIAL/CARP IV PRN (07:45)
[2017-09-13] MEDS ORDERED: HYDROmorphone INJ 2 MG/ML SYR/VIAL IV PRN (07:45)
[2017-09-13] MEDS ORDERED: EpHEDrine SULFATE INJ 50 MG/ML AMP IV PRN (07:45)
[2017-09-13] MEDS ORDERED: ONDANSETRON INJ 2 MG/ML 2 ML VIAL IV PRN ×2 (07:45→12:15)
[2017-09-13] MEDS ORDERED: MEPERIDINE HCL 25 MG/ML CARP IV PRN (07:45)
[2017-09-13] MEDS ORDERED: PROPOFOL IV EMULSION 10 MG/ML 20 ML VIAL IV ONE (08:07)
[2017-09-13] MEDS ORDERED: ROCURONIUM BROMIDE 10 MG/ML 5 ML VIAL IV ONE (08:07)
[2017-09-13] MEDS ORDERED: LIDOCAINE HCL 2% 2 ML VIAL (20MG/ML) ONE (08:07)
[2017-09-13] MEDS ORDERED: MIDAZOLAM HCL 1 MG/ML 2ML VIAL ONE (08:07)
[2017-09-13] MEDS ORDERED: FENTANYL CITRATE INJ 50 MCG/1 ML 2 ML VIAL ONE ×2 (08:08→13:07)
--- NOTE | 2017-09-13 10:23 | History & Physical Bridge Note ---
H&P Re-Evaluation Bridge Note: I have examined the patient, reviewed the History & Physical and in the interval since the performance of the History & Physical I have noted the following changes of clinical significance: No changes noted
[2017-09-13] MEDS ORDERED: BUPIVACAINE 0.5 % 5 MG/1 ML MPF 30ML VIAL ONE (10:33)
[2017-09-13] MEDS ORDERED: ONDANSETRON INJ 2 MG/ML 2 ML VIAL ONE (11:35)
[2017-09-13] MEDS ORDERED: NEOSTIGMINE METHYLSULFATE 5 MG/5 ML SYR ONE (11:35)
[2017-09-13] MEDS ORDERED: GLYCOPYRROLATE INJ 0.2 MG/ML VIAL ONE (11:35)
[2017-09-13] MEDS ORDERED: DEXAMETHASONE SOD INJ 4 MG/ML VIAL ONE (11:35)
[2017-09-13] MEDS ORDERED: IOPAMIDOL 15 ML IV ONE (12:02)
--- NOTE | 2017-09-13 12:04 | [facility] Post Operative Brief Note ---
Immediate Operative Summary Operative Date Sep 13, 2017. Pre-Operative Diagnosis Cholecystitits and cholelithasis Post-Operative Diagnosis Same Procedure(s) Performed Laparoscopic Cholecystectomy with Cholangiogram Surgeon DR Sarabia Survey Field Technician Surgeon(s) Jem Rollins PA-C Estimated Blood Loss 10 mL Findings See Below nonmobile gallstone, evidence of hydrops, cholangiogram normal Specimens a, Gallbladder and contents Drains None Anesthesia Type General Complication(s) none Disposition Accompanied Pt To Recover: no Disposition: Recovery Room / PACU
--- NOTE | 2017-09-13 12:14 | [facility] Operative Report ---
Operative Report Operative Date Sep 13, 2017. Pre-Operative Diagnosis Cholecystitits and cholelithasis Post-Operative Diagnosis cholelithiasis with cholecystitis, hydrops versus empyema of the gallbladde Procedure(s) Performed Laparoscopic cholecystectomy with intraoperative cholangiogram Surgeon DR Sarabia Public Service Officer Surgeon(s) Jem Rollins PA-C Estimated Blood Loss 10 mL Findings Chronically inflamed gallbladder aspiration revealed hydrops. Window of safety obtained, cholangiogram performed with no filling defects, non-mobile gallstone. Possible empyema of the gallbladder versus hydrops. Specimens a, Gallbladder and contents Drains none Anesthesia GETA Complication(s) None Disposition Recovery Room / PACU Indications 72-year-old female with cholelithiasis and signs of chronic cholecystitis. She is also scheduled for carotid endarterectomy for a symptomatic high-grade carotid artery stenosis, after discussion with vascular surgery and due to her recent weight loss pain and nausea, plan for laparoscopic cholecystectomy with intraoperative cholangiogram prior to intervention on her carotid. The risks of the procedure were discussed, all questions were answered, and the patient agreed to proceed with surgery as planned. Description of Procedure The patient was properly identified, consented, and taken to the operating room where she was placed in the supine position. General endotracheal anesthesia was induced. SCDs and a safety belt were placed. Preoperative antibiotics were administered. The patient's abdomen was prepped and draped in the standard sterile fashion. A surgical timeout was performed and all parties were in agreement that this was the correct patient and procedure to be performed and we continued as planned. An incision was made superior and to the left of the umbilicus overlying the rectus muscle and the Veress needle was inserted. Saline drop test confirmed entry into the peritoneum. The abdomen was insufflated with carbon dioxide which the patient tolerated without incident. . The abdomen was then entered using the Optiview technique and a 5 mm trocar. The laparoscope was inserted and no damage from initial trocar or Veress needle placement was noted, no gross abnormalities were noted within the 4 quadrants of the abdomen. An 11 mm port was placed in the subxiphoid position and two 5 mm ports were then placed in the right subcostal position. The patient was placed in reverse Trendelenburg position and rotated towards the left. Omental adhesions were taken down bluntly. The gallbladder appeared to be very inflamed. The gallbladder was aspirated in order to allow for grasping and retraction of the gallbladder and revealed possible hydrops. The dome of the gallbladder was retracted towards the left upper quadrant and the infundibulum was retracted toward the right lower quadrant revealing Calot's triangle. Peritoneal attachments were taken down with electrocautery and blunt dissection. The cystic duct and artery were circumferentially dissected. A window of safety was obtained showing the cystic duct entering the gallbladder with no aberrant structures noted. There was a fixed large gallstone in the infundibulum, which did not allow for these Burg[place] cholangiocatheter as planned. The cystic duct was clipped close to the gallbladder and ductotomy was made with scissors. The cholangiocatheter was then inserted and used to perform an intraoperative cholangiogram which showed no filling defects, and good filling of the duodenum and hepatic radicals with contrast. The cholangiocatheter was removed and the cystic duct and artery were doubly clipped and divided. The gallbladder was then lifted off the gallbladder fossa with electrocautery. There is small amount of leakage of what appear to be purulent material indicating that this may represent empyema of the gallbladder. No stones were spilled. The gallbladder was placed in an Endo Catch bag and removed through the subxiphoid port site which had to be enlarged to accommodate the gallbladder and stones. The right upper quadrant was irrigated and hemostasis was found to be good. 5 mm trochars were removed under direct visualization and the abdomen was allowed to collapse. The subxiphoid port site fascia was closed with 0 Vicryl suture. The wound was irrigated, and the skin of all ports was closed with 4-0 Monocryl subcuticular sutures. Dermabond was placed over the wounds. The patient was extubated in the operating room and taken to the PACU where she recovered without apparent incident. All sponge, instrument and needle counts were correct at the conclusion of the procedure. The patient tolerated the procedure well. Po Pineda, the physician's volleyball assistant coach was present and scrubbed for the entirety of the case. He was essential positioning, prepping and draping, entry into the abdomen, retraction and exposure of the gallbladder, removal the gallbladder, and closure of the abdomen. I attest to the content of the Intraoperative Record and any orders documented therein. Any exceptions are noted below.
[2017-09-13] MEDS ORDERED: ACETAMINOPHEN 325 MG TAB PO PRN (12:15)
[2017-09-13] MEDS ORDERED: MoRPHine SULFATE 4 MG/ML 1 ML CARP\\VIAL IV PRN (12:15)
[2017-09-13] MEDS ORDERED: LABETALOL HCL IV 5 MG/ML 20ML IV ONE (12:46)
[2017-09-13] MEDS: LABETALOL HCL IV 5 MG/ML 20ML IV PRN ×3 (12:48→13:12)
[2017-09-13] MEDS ORDERED: HydrALAZINE HCL 20 MG/ML VIAL ONE (12:56)
[2017-09-13] MEDS ORDERED: HydrALAZINE HCL 20 MG/ML VIAL IV. STA ×2 (12:57→13:21)
[2017-09-13] MEDS ORDERED: LABETALOL HCL IV 5 MG/ML 20ML IV STA (12:57)
[2017-09-13] MEDS: FENTANYL CITRATE INJ 50 MCG/1 ML 2 ML VIAL IV PRN ×4 (13:24→14:09)
--- NOTE | 2017-09-13 13:31 | DIAGNOSTIC IMAGING REPORT ---
INTRAOPERATIVE CHOLANGIOGRAM HISTORY: Post cholecystectomy. FLUOROSCOPY TIME: 18 seconds. 2 fluoroscopic spot images of the right upper quadrant. FINDINGS: Fluoroscopy was provided for an intraoperative cholangiogram status post cholecystectomy. Contrast was injected through the cystic duct remnant. The common bile duct is normal in course and caliber. There are no definite filling defects seen within the common bile duct to suggest a retained stone. Questionable filling defects of the mid common bile duct may be due to the overlapping bowel. These are confirmed on both views. Contrast extends into the small bowel. There is mild intrahepatic and extrahepatic bile duct dilatation. IMPRESSION: Fluoroscopy provided for an intraoperative cholangiogram status post cholecystectomy. No definite filling defects within the common bile duct. There is mild intrahepatic and extrahepatic bile duct dilatation. Electronically signed by: Gomez Cesar M.D. 09/13/2017 1:29 PM Dictated Date/Time: 09/13/2017 1:23 PM
--- NOTE | 2017-09-13 13:36 | Anesthesiology Progress Note ---
Anesthesia Post Op Note Date & Time Sep 13, 2017 at 13:22 Vital Signs Pain Intensity: 0 Vital Signs Past 12 Hours Date Time Temp Pulse Resp B/P (MAP) Pulse Ox O2 Delivery O2 Flow Rate FiO2 09/13/17 06:55 36.6 90 16 101/68 (79) 98 Room Air Notes Mental Status: alert / awake / arousable, participated in evaluation Pt Amnestic to Procedure: Yes Nausea / Vomiting: adequately controlled Pain: adequately controlled Airway Patency, RR, SpO2: stable & adequate BP & HR: stable & adequate, see Notes Hydration State: stable & adequate Anesthetic Complications: no major complications apparent The patient is a 72 y/o female who underwent a lap kristin with Dr. Sarabia. The patient was found to have a medium to high grade L internal carotid stenosis during the course of her preoperative workup and is scheduled for a L CEA by Dr. Cedeno in September. Due to the patient not eating and worsening gall bladder symptoms the patient was okayed by Dr. Cedeno for gallbladder surgery. An arterial line was placed preoperatively in the L radial artery. The patient was noted preoperatively to have L arm BPs in the 220s/50s with R arm BPs in the 120s/60s. The L arm BP was used for the case. The patient's SBP was maintained in the 180s throughout the procedure. She did well during the procedure and was extubated without incident. In the PACU she was awake, comfortable, and moving all extremities. Her BP on the R was 120/60 while her L BP was 240s/50s. Dr. Cedeno saw the patient in the PACU and noted that the L BP is the true BP due to R subclavian stenosis and recommended to treat her L arm BP to maintain SBP below 180. The patient was given a total of labetalol 25 mg and hydralazine 20 mg. Her L arm SBP is 160s/50s. Her other vitals are stable. I spoke to Dr. Nunez who will follow the patient on the floor. The patient will go to telemetry overnight.
[2017-09-13] MEDS: OXYCODONE/ACETAMINOPHEN 5-325 TAB PO PRN ×3 (15:39→23:31)
[2017-09-13] MEDS ORDERED: IV FLUIDS COMPLETED PRN (15:45)
--- NOTE | 2017-09-13 16:55 | Medical Consult ---
Consultation Date of Consultation: Sep 13, 2017. Attending Physician: Thomas Sarabia DO Reason for Consultation: Medical Management History of Present Illness This is a 72 yo F with PMHx of severe carotid stenosis with plans for carotidendarterectomy, HTN, HLD, cholelithiasis, GERSON, who is s/p lap kristin by Dr. Sarabia on 09/13/17 and found to have elevated BP in the 220s/80s after surgical procedure. Dr. Cedeno was contacted and would like BP to be controlled under 180 systolically. The patient reports feeling fairly well right now, and just finished eating a full liquids for dinner. She has mild discomfort from bloating in her abdomen, but no significant pain. She reports feeling very anxious and worked up when her BP was elevated in the PACU because she has never been through surgery before. The patient denies any chest pain, shortness of breath, flutter or palpitations at this time. She is actually hoping to go home tomorrow. The patient has surgery for carotid endarterectomy scheduled with Dr. Cedeno on 10/05/17. Past Medical/Surgical History Medical Problems: Severe carotid stenosis with plans for carotidendarterectomy HTN HLD cholelithiasis GERSON Chronic hypokalemia Surg Hx: cholecystectomy Family History hepatic cirrhosis Social History Smoking Status: Current Every Day Smoker Smokeless Tobacco Use: No Alcohol Use: none Drug Use: none Marital Status: Housing Status: lives with family Occupation Status: unemployed Allergies Coded Allergies: Codeine (Verified Adverse Reaction, Intermediate, STOMACH PAIN, 09/13/17) Current Inpatient Medications Current Inpatient Medications Medications (Trade) Dose Ordered Sig/Rhoda Route Start Time Stop Time Status Last Admin Dose Admin Cefoxitin Sodium 2000 mg/Dextrose 60 ml @ 120 mls/hr PREOP@0600 IV 09/13/17 06:00 09/13/17 18:00 09/13/17 07:55 120 MLS/HR Lactated Ringer's 1,000 ml @ 15 mls/hr Q24H IV 09/13/17 06:00 09/14/17 05:59 09/13/17 06:54 15 MLS/HR Hydromorphone HCl (Dilaudid Inj) 0.5 mg Q5M PRN IV 09/13/17 07:45 09/13/17 18:00 Fentanyl Citrate (Fentanyl Inj) 25 mcg Q5M PRN IV 09/13/17 07:45 09/13/17 18:00 09/13/17 13:50 25 MCG Naloxone HCl (Narcan Inj) 0.2 mg Q2M PRN IV 09/13/17 07:45 09/13/17 18:00 Meperidine HCl (Demerol Inj) 12.5 mg Q5M PRN IV 09/13/17 07:45 09/13/17 18:00 Flumazenil (Romazicon Inj) 0.2 mg Q2M PRN IV 09/13/17 07:45 09/13/17 18:00 Ephedrine Sulfate (EpHEDrine SULFATE INJ) 5 mg Q5M PRN IV 09/13/17 07:45 09/13/17 18:00 Atropine Sulfate (Atropine Sulfate 0.1mg/ml Inj) 0.5 mg Q1M PRN IV 09/13/17 07:45 09/13/17 18:00 Phenylephrine HCl (Erick-Synephrine 500MCG/5ML Syr) 100 mcg Q5M PRN IV 09/13/17 07:45 09/13/17 18:00 Lactated Ringer's 1,000 ml @ 75 mls/hr [id number] IV 09/13/17 16:00 10/13/17 12:12 Ondansetron HCl (Zofran Inj) 4 mg Q4H PRN IV 09/13/17 12:15 10/13/17 12:14 Acetaminophen (Tylenol Tab) 650 mg Q6H PRN PO 09/13/17 12:15 10/13/17 12:14 Oxycodone/ Acetaminophen (Percocet 5-325mg Tab) 1 tab Q4H PRN PO 09/13/17 12:15 09/27/17 12:14 09/13/17 15:39 1 TAB Morphine Sulfate (MoRPHine SULFATE INJ) 4 mg Q1H PRN IV 09/13/17 12:15 09/27/17 12:14 Lisinopril (Zestril Tab) 10 mg QPM PO 09/13/17 21:00 10/13/17 20:59 Metoprolol Succinate (Toprol Xl Tab) 50 mg QAM PO 09/14/17 09:00 10/14/17 08:59 Multivitamins (Multivitamin Tab) 1 tab QAM PO 09/14/17 09:00 10/14/17 08:59 Miscellaneous (Iv Fluids Completed) 1 ea PRN PRN N/A 09/13/17 15:45 09/13/18 15:44 Review of Systems Constitutional: No fever, sweats or chills Eyes: No diplopia, no worsening or blurred vision ENT: normal hearing, no trouble swallowing Respiratory: No cough, sputum, dyspnea at rest or on exertion Cardiovascular: No chest pain, tightness or palpitations Abdomen: Mild discomfort due to bloating, mild pain, no nausea, vomiting, diarrhea or constipation Musculoskeletal: No joint pain, calf pain, swelling Neurologic: No weakness, numbness/tingling, or balance problems Psychiatric: No anxiety or depression Skin: No rash or itch Physical Exam Date Time Temp Pulse Resp B/P (MAP) Pulse Ox O2 Delivery O2 Flow Rate FiO2 09/13/17 15:23 36.9 86 20 152/88 Room Air 09/13/17 14:30 36.2 83 20 165/51 95 Room Air Arterial Line 09/13/17 14:15 84 18 153/50 96 Room Air 09/13/17 14:05 80 20 146/73 94 Room Air 09/13/17 13:55 85 19 150/67 93 Room Air 09/13/17 13:45 81 18 153/49 95 Room Air 09/13/17 13:35 82 17 155/50 93 Room Air 159/68 (90) 09/13/17 13:25 77 16 151/47 94 Room Air 179/50 (82) 09/13/17 13:15 80 18 169/58 99 Nasal Cannula 2 204/70 (106) 09/13/17 13:05 80 18 180/59 98 Nasal Cannula 2 09/13/17 12:55 82 16 245/75 97 Nasal Cannula 2 300/124 (173) 09/13/17 12:45 84 20 245/75 98 Oxymask 10 300/111 (170) 09/13/17 12:35 76 11 121/60 100 Oxymask 10 237/59 (123) 09/13/17 12:25 71 18 121/73 100 Oxymask 10 258/67 (133) 09/13/17 12:15 73 17 128/75 100 Oxymask 10 09/13/17 06:55 36.6 90 16 101/68 (79) 98 Room Air General: awake, alert, no apparent distress, sitting up in bed eating dinner Head: Normocephalic, atraumatic ENT: PERRL, EOMI, no pharyngeal exudate, mucous membranes moist, +left-sided carotid bruit Chest: Clear to auscultation, on 2 L via NC, no adventitious breath sounds Cardiac: Regular rate and rhythm, no murmur, no JVD, normal peripheral pulses, good capillary refill Abdominal: NABS x 4 quadrants, soft, nontender to palpation, no rebound, guarding or tenderness Extremities: Normal inspection, no peripheral edema or erythema, calfs nontender to palpation Psych: Normal mood and affect Neuro: AAO x 3, speech is clear, no peripheral sensory deficits Assessment & Plan This is a 72 yo F with PMHx of severe carotid stenosis with plans for carotidendarterectomy, HTN, HLD, cholelithiasis, chronic tobacco abuse, GERSON, who is s/p lap kristin by Dr. Sarabia on 09/13/17 and found to have elevated BP in the 220s/80s after surgical procedure. Dr. Cedeno was contacted and would like BP to be controlled under 180 systolically. We will consult his team formally for further recommendations. Elevated BP HLD Severe left-sided carotid stenosis - Will consult vascular surgery for formal recommendations - patient blood pressure control with labetalol and hydralazine in the PACU. - Goal range for SBP < 180, treat with IV lebatolol 10 mg q6h prn, currently the patient's blood pressure is adequately controlled around 180/70s currently - Continue home medications including lisinopril 10 mg QAM, metoprolol succinate 50 mg QAM - pt is not on statin therapy so will check a fasting lipid panel with am labs - Patient is asymptomatic, if develops symptoms then would obtain stat EKG and consider consulting cardiology S/P laparoscopic cholecystectomy - Completed by Dr. Sarabia today, continue pain control and bowel regimen per the primary team - Ambulatory, PT/OT eval - Follow CBC Chronic tobacco use -Cessation encouraged at bedside DVT prophylaxis: Ambulatory CODE STATUS full code Disposition: Patient from home, lives with , anticipating discharge within the next 1-2 days Reviewed: Pt Seen/Exam by Me History Pt is doing well post-op. She has some abd distention s/p lap procedure, but otherwise feeling well. She has been hungry and tolerating PO without issue. Denies chest pain, SOB. Agree with HPI/ROS as noted by PA. General Appearance: WD/WN, no apparent distress Respiratory: normal breath sounds, no respiratory distress Cardiovascular: normal peripheral pulses, regular rate, rhythm Gastrointestinal: non tender, soft, distended Extremities: non-tender, no pedal edema Neurologic/Psychiatric: alert, normal mood/affect, oriented x 3 Skin Characteristics: normal color, warm/dry Assessment/Plan Agree with plan as outlined above Elevated BP post-op Anesthesia did discuss with Dr. Cedeno who is planning CEA in 2 weeks He feels that the elevated BP is the reliable measurement due to subclavian stenosis Recs for goal <180 No other issues post-op
[2017-09-13] MEDS ORDERED: LABETALOL HCL IV 5 MG/ML 20ML IV PRN (17:00)
[2017-09-13] MEDS: LACTATED RINGER'S 1000ML 1,000 ML IV SCH (19:49)
[2017-09-13] MEDS ORDERED: LISINOPRIL 10 MG TAB PO SCH (21:00)
[2017-09-14] VITALS (7 sets, daily range): BP systolic 162–210; BP diastolic 61–99; PULSE 71–88; TEMP 36.8–36.9; O2SAT 94–97
[2017-09-14] MEDS: OXYCODONE/ACETAMINOPHEN 5-325 TAB PO PRN ×3 (03:54→12:01)
[2017-09-14 05:52] LABS: HEMATOCRIT 38.7 % (37-47); HEMOGLOBIN 12.7 g/dL (12.0-16.0); MEAN CELL VOLUME 92.8 fL (80-100); MEAN CORPUSCULAR HEMOGLOBIN 30.5 pg (25-34); MEAN CORPUSCULAR HGB CONC 32.8 g/dl (32-36); MEAN PLATELET VOLUME 11.5 fL (7.4-10.4); PLATELET COUNT 267 K/uL (130-400); RED CELL DISTRIBUTION WIDTH CV 14.3 % (11.5-14.5); RED CELL DISTRIBUTION WIDTH SD 48.5 fL (36.4-46.3); WHITE BLOOD COUNT 13.51 K/uL (4.8-10.8)
--- NOTE | 2017-09-14 06:33 | Surgery Progress Note ---
Surgery Progress Note Date of Service Sep 14, 2017. Subjective Post OP Day: 1 + feeling well, + flatus, + pain controlled, + diet (Tolerated full liquids, having AHA diet for breakfast this AM), No complaints, No bowel movement, No nausea, No vomiting Patient expressed desire to go home today. Objective Vital Signs: Date Time Temp Pulse Resp B/P (MAP) Pulse Ox O2 Delivery O2 Flow Rate FiO2 09/14/17 04:00 Room Air 09/14/17 03:47 36.8 88 17 179/61 (100) 94 Room Air 09/14/17 01:46 169/63 (98) 09/13/17 23:59 Room Air 09/13/17 23:17 36.7 91 17 185/91 (122) 94 Room Air 09/13/17 20:00 Room Air 09/13/17 20:00 37.2 87 22 196/70 (112) 96 Room Air 09/13/17 19:44 36.9 89 18 199/63 (108) 97 Room Air 09/13/17 19:30 182/59 (100) 09/13/17 18:16 95 Nasal Cannula 2.0 09/13/17 16:15 81 18 171/68 (102) 99 Nasal Cannula 2.0 09/13/17 15:45 88 17 188/58 (101) 94 Nasal Cannula 2.0 09/13/17 15:23 36.9 86 20 152/88 Room Air 09/13/17 15:15 86 17 174/57 (96) 91 Room Air 09/13/17 15:00 86 18 188/58 (101) 93 Room Air 09/13/17 14:30 36.2 83 20 165/51 95 Room Air Arterial Line 09/13/17 14:15 84 18 153/50 96 Room Air 09/13/17 14:05 80 20 146/73 94 Room Air 09/13/17 13:55 85 19 150/67 93 Room Air 09/13/17 13:45 81 18 153/49 95 Room Air 09/13/17 13:35 82 17 155/50 93 Room Air 159/68 (90) 09/13/17 13:25 77 16 151/47 94 Room Air 179/50 (82) 09/13/17 13:15 80 18 169/58 99 Nasal Cannula 2 204/70 (106) 09/13/17 13:05 80 18 180/59 98 Nasal Cannula 2 09/13/17 12:55 82 16 245/75 97 Nasal Cannula 2 300/124 (173) 09/13/17 12:45 84 20 245/75 98 Oxymask 10 300/111 (170) 09/13/17 12:35 76 11 121/60 100 Oxymask 10 237/59 (123) 09/13/17 12:25 71 18 121/73 100 Oxymask 10 258/67 (133) 09/13/17 12:15 73 17 128/75 100 Oxymask 10 09/13/17 06:55 36.6 90 16 101/68 (79) 98 Room Air General Appearance: WD/WN, no apparent distress Head: normocephalic, atraumatic Neck: trachea midline Respiratory/Chest: no respiratory distress, no accessory muscle use Abdomen: normal bowel sounds, non distended, soft, no organomegaly, + tenderness (Over incision sites, Mild) Incision(s): clean, dry, intact, no erythema, no drainage Laboratory Results: Results Past 24 Hours Test 09/14/17 05:17 Range/Units White Blood Count 13.51 4.8-10.8 K/uL Red Blood Count 4.17 4.2-5.4 M/uL Hemoglobin 12.7 12.0-16.0 g/dL Hematocrit 38.7 37-47 % Mean Corpuscular Volume 92.8 80-100 fL Mean Corpuscular Hemoglobin 30.5 25-34 pg Mean Corpuscular Hemoglobin Concent 32.8 32-36 g/dl RDW Standard Deviation 48.5 36.4-46.3 fL RDW Coefficient of Variation 14.3 11.5-14.5 % Platelet Count 267 130-400 K/uL Mean Platelet Volume 11.5 7.4-10.4 fL Assessment & Plan POD #1 s/p laparoscopic cholecystectomy w/ IOC Doing well, pain controlled on PO medications, No N/V at this time, urinating without trouble. AM labs pending. [facility] diet for breakfast this AM - will see how she tolerates. Probable D/C today if she tolerates breakfast w/o N/V. Will discuss findings with Dr. Sarabia. Please contact with questions or concerns.
[2017-09-14 06:38] LABS: CALCIUM 8.5 mg/dl (8.5-10.1); CREATININE 0.35 mg/dl (0.60-1.20); POTASSIUM 2.8 mmol/L (3.5-5.1)
[2017-09-14] MEDS ORDERED: OXYC-57 PO (07:12)
--- NOTE | 2017-09-14 07:19 | Discharge Instructions ---
Discharge Instructions Date of Service Sep 14, 2017. Admission Reason for Admission: Cholelithiasis Discharge Discharge Diagnosis / Problem: cholelithiasis Discharge Goals Goal(s): Decrease discomfort, Improve function Activity Recommendations Activity Limitations: as noted below Lifting Limitations: no more than 10 pounds, until after follow-up appointment Exercise/Sports Limitations: until after follow-up appointment Shower/Bathe: tomorrow (Please do not submerge your incisions in water.) Driving or Machine Use: resume 3 days after discharge (Please do not drive while using narcotic pain medication) . Instructions / Follow-Up Instructions / Follow-Up You have surgical glue covering your incision sites. Please allow this to fall of on its own. You have been prescribed Percocet to take as needed for pain relief. You may alternate this with ibuprofen for better relief as well. Follow-up with Dr. Sarabia in 1-2 weeks. Please contact our office at to schedule an appointment if you have not done so already. Please contact our office with any questions or concerns. [facility] [employer]. [address] [place] [address]. Current Hospital Diet Patient's current hospital diet: AHA Diet (Heart Healthy) Discharge Diet Recommended Diet: Regular Diet Procedures Procedures Performed: Laparoscopic Cholecystectomy with Cholangiogram Pending Studies Studies pending at discharge: yes List of pending studies: pathology Laboratory Results Lipid Panel Test 09/14/17 05:17 Range/Units Triglycerides Level 127 0-150 mg/dl Cholesterol Level 143 0-200 mg/dl HDL Cholesterol 40 mg/dl Cholesterol/HDL Ratio 3.6 LDL Cholesterol, Calculated 78 mg/dl Medical Emergencies . Who to Call and When: Medical Emergencies: If at any time you feel your situation is an emergency, please call 911 immediately. . Non-Emergent Contact Non-Emergency issues call your: Primary Care Provider, Surgeon Call Non-Emergent contact if: you have a fever, temperature is above 101.5, your pain is not controlled, your pain is worsening, wound has increased drainage, wound has increased redness . "Provider Documentation" section prepared by Zhang Modi. . VTE Core Measure Inpt VTE Proph given/why not?: SCD's [place] Drug Monitoring Program Search Results: patient reviewed within database, no issues identified
--- NOTE | 2017-09-14 07:32 | Anesthesiology Progress Note ---
Anesthesia Post Op Note Date & Time Sep 14, 2017 at 07:31 Vital Signs Pain Intensity: 5.0 Vital Signs Past 12 Hours Date Time Temp Pulse Resp B/P (MAP) Pulse Ox O2 Delivery O2 Flow Rate FiO2 09/14/17 04:00 Room Air 09/14/17 03:47 36.8 88 17 179/61 (100) 94 Room Air 09/14/17 01:46 169/63 (98) 09/13/17 23:59 Room Air 09/13/17 23:17 36.7 91 17 185/91 (122) 94 Room Air 09/13/17 20:00 Room Air 09/13/17 20:00 37.2 87 22 196/70 (112) 96 Room Air 09/13/17 19:44 36.9 89 18 199/63 (108) 97 Room Air Notes Mental Status: alert / awake / arousable, participated in evaluation Pt Amnestic to Procedure: Yes Nausea / Vomiting: adequately controlled Pain: adequately controlled Airway Patency, RR, SpO2: stable & adequate BP & HR: stable & adequate Hydration State: stable & adequate Anesthetic Complications: no major complications apparent
--- NOTE | 2017-09-14 08:31 | Hospitalist Progress Note ---
Hospitalist Progress Note Date of Service Sep 14, 2017. Subjective Pt evaluation today including: conversation w/ patient, physical exam, chart review, lab review, review of studies Pain: Minimal abdominal soreness PO Intake: Good Voiding: no voiding problems The patient was seen and examined this morning. Pt reports doing well today. She has minimal abdominal discomfort and bloating has significantly reduced. She 's passing gas but no BM yet. Pt is tolerating an oral diet without difficulty. Overnight her BP has fluctuated some, but she is now back on home medication dosing and has needed a dose of labetalol this morning. She denies any chest pain, shortness of breath at rest or exertion, headache, lightheadedness, dizziness or other complaints. She is hopeful for discharge today. Additional Comments: Constitutional: No fever, sweats or chills Eyes: No diplopia, no worsening or blurred vision ENT: normal hearing, no trouble swallowing Respiratory: No cough, sputum, dyspnea at rest or on exertion Cardiovascular: No chest pain, tightness or palpitations Abdomen: Mild discomfort due to bloating, mild pain but improving, + passing gas , no nausea, vomiting, diarrhea or constipation Musculoskeletal: No joint pain, calf pain, swelling Neurologic: No weakness, numbness/tingling, or balance problems Psychiatric: No anxiety or depression Skin: No rash or itch Objective Vital Signs Date Time Temp Pulse Resp B/P (MAP) Pulse Ox O2 Delivery O2 Flow Rate FiO2 09/14/17 07:34 36.9 71 18 210/63 (112) 96 09/14/17 04:00 Room Air 09/14/17 03:47 36.8 88 17 179/61 (100) 94 Room Air 09/14/17 01:46 169/63 (98) 09/13/17 23:59 Room Air 09/13/17 23:17 36.7 91 17 185/91 (122) 94 Room Air 09/13/17 20:00 Room Air 09/13/17 20:00 37.2 87 22 196/70 (112) 96 Room Air 09/13/17 19:44 36.9 89 18 199/63 (108) 97 Room Air 09/13/17 19:30 182/59 (100) 09/13/17 18:16 95 Nasal Cannula 2.0 09/13/17 16:15 81 18 171/68 (102) 99 Nasal Cannula 2.0 09/13/17 15:45 88 17 188/58 (101) 94 Nasal Cannula 2.0 09/13/17 15:23 36.9 86 20 152/88 Room Air 09/13/17 15:15 86 17 174/57 (96) 91 Room Air 09/13/17 15:00 86 18 188/58 (101) 93 Room Air 09/13/17 14:30 36.2 83 20 165/51 95 Room Air Arterial Line 09/13/17 14:15 84 18 153/50 96 Room Air 09/13/17 14:05 80 20 146/73 94 Room Air 09/13/17 13:55 85 19 150/67 93 Room Air 09/13/17 13:45 81 18 153/49 95 Room Air 09/13/17 13:35 82 17 155/50 93 Room Air 159/68 (90) 09/13/17 13:25 77 16 151/47 94 Room Air 179/50 (82) 09/13/17 13:15 80 18 169/58 99 Nasal Cannula 2 204/70 (106) 09/13/17 13:05 80 18 180/59 98 Nasal Cannula 2 09/13/17 12:55 82 16 245/75 97 Nasal Cannula 2 300/124 (173) 09/13/17 12:45 84 20 245/75 98 Oxymask 10 300/111 (170) 09/13/17 12:35 76 11 121/60 100 Oxymask 10 237/59 (123) 09/13/17 12:25 71 18 121/73 100 Oxymask 10 258/67 (133) 09/13/17 12:15 73 17 128/75 100 Oxymask 10 Physical Exam Notes: General: awake, alert, no apparent distress Head: Normocephalic, atraumatic ENT: PERRL, EOMI, no pharyngeal exudate, mucous membranes moist, +left-sided carotid bruit Chest: Clear to auscultation, on 2 L via NC, no adventitious breath sounds Cardiac: Regular rate and rhythm, no murmur, no JVD, normal peripheral pulses, good capillary refill Abdominal: NABS x 4 quadrants, soft, nontender to palpation, no rebound, guarding or tenderness Extremities: Normal inspection, no peripheral edema or erythema, calfs nontender to palpation Psych: Normal mood and affect Neuro: AAO x 3, speech is clear, no peripheral sensory deficits Laboratory Results Last 24 Hours Test 09/14/17 05:17 White Blood Count 13.51 K/uL Red Blood Count 4.17 M/uL Hemoglobin 12.7 g/dL Hematocrit 38.7 % Mean Corpuscular Volume 92.8 fL Mean Corpuscular Hemoglobin 30.5 pg Mean Corpuscular Hemoglobin Concent 32.8 g/dl RDW Standard Deviation 48.5 fL RDW Coefficient of Variation 14.3 % Platelet Count 267 K/uL Mean Platelet Volume 11.5 fL Sodium Level 138 mmol/L Potassium Level 2.8 mmol/L Chloride Level 101 mmol/L Carbon Dioxide Level 31 mmol/L Anion Gap 6.0 mmol/L Blood Urea Nitrogen 9 mg/dl Creatinine 0.35 mg/dl Est Creatinine Clear Calc Drug Dose 130.7 ml/min Estimated GFR () 126.0 Estimated GFR (Non- 108.7 BUN/Creatinine Ratio 26.0 Random Glucose 103 mg/dl Calcium Level 8.5 mg/dl Triglycerides Level 127 mg/dl Cholesterol Level 143 mg/dl HDL Cholesterol 40 mg/dl LDL Cholesterol, Calculated 78 mg/dl VLDL Cholesterol, Calculated 25 mg/dl Cholesterol/HDL Ratio 3.6 Assessment and Plan This is a 72 yo F with PMHx of severe carotid stenosis with plans for carotidendarterectomy, HTN, HLD, cholelithiasis, chronic tobacco abuse, GERSON, who is s/p lap kristin by Dr. Sarabia on 09/13/17 and found to have elevated BP in the 220s/80s after surgical procedure. Dr. Cedeno was contacted and would like BP to be controlled under 180 systolically. We will consult his team formally for further recommendations. Elevated BP HLD Severe left-sided carotid stenosis - Will consult vascular surgery for formal recommendations - patient blood pressure control with labetalol and hydralazine in the PACU. - Goal range for SBP < 180, treat with IV lebatolol 10 mg q6h prn - Continue home medications including lisinopril 10 mg QAM, metoprolol succinate 50 mg QAM - Lipid panel good, pt not on statin - Patient is asymptomatic, she likely has slightly elevated pressures in the outpatient setting, but also missed her am and pm home medications the day of surgery, so this may be a rebound effect. Would recommend f/u with PCP within 1 week. Hypokalemia - 2.8 - Replaced via PO and IV - recheck this afternoon S/P laparoscopic cholecystectomy - Completed by Dr. Sarabia 09/13, continue pain control and bowel regimen per the primary team - Ambulatory, PT/OT eval - Follow CBC Chronic tobacco use -Cessation encouraged at bedside - pt smokes 3 cigarettes per day, she has declined a nicotine patch DVT prophylaxis: Ambulatory CODE STATUS full code Disposition: Patient from home, lives with , anticipating discharge today
[2017-09-14] MEDS ORDERED: METOPROLOL SUCC 50MG EXT REL TAB PO SCH (09:00)
[2017-09-14] MEDS ORDERED: POTASSIUM CHLR 10 MEQ / WTR 10 MEQ in PREMIXED WATER 100 ML IV SCH (09:00)
[2017-09-14] MEDS ORDERED: POTASSIUM CHLORIDE 20 MEQ TABCR PO ONE (09:00)
[2017-09-14] MEDS ORDERED: MULTIVITAMIN TAB PO SCH (09:00)
[2017-09-14] MEDS: LACTATED RINGER'S 1000ML 1,000 ML IV SCH (09:01)
[2017-09-14] MEDS ORDERED: METO-217 PO (13:26)
[2017-09-14] MEDS ORDERED: MCRK20 PO (13:31)
[2017-09-14] MEDS ORDERED: POTASSIUM CHLORIDE 20 MEQ TABCR PO SCH (14:00)
== END 2017-09-14 14:02 | disposition home or self-care (01) | DRG 419 ==
LOC: C.ACU 06:26 → C.2E 13:12 → ENRESERV 14:36
PROVIDERS: ADMIT Surgery; ATTEND Surgery
PROC: 0FT44ZZ Resection of Gallbladder, Percutaneous Endoscopic Approach (ICD-10-PCS; principal; 2017-09-13 08:20)
DX: K80.10 Calculus of gallbladder with chronic cholecystitis without obstruction (principal); R60.9 Edema, unspecified; I65.29 Occlusion and stenosis of unspecified carotid artery; F41.1 Generalized anxiety disorder; I10 Essential (primary) hypertension; Z83.79 Family history of other diseases of the digestive system; F17.210 Nicotine dependence, cigarettes, uncomplicated

== ENCOUNTER → 2017-12-02 | Outpatient (CLI) | payer OTHER ==
[~2017-12-02] MED LIST changes: +AMLO-114 PO; -CEFOXITIN IV 2,000 MG in DEXTROSE 5% 50ML 50 ML IV SCH; +IBUP-1459 PO; -LACTATED RINGER'S 1000ML 1,000 ML IV SCH; -LISI-461 PO; +LOSA1TAB38 PO; +LSN20 PO; +METO100T44 PO; -ONDA8TAB6 PO; +TRAM-10 PO; +amiodarone hcl PO
== END | disposition home or self-care (01) ==
LOC: C.LAB 10:25
PROVIDERS: ATTEND Family Medicine
DX: I10 Essential (primary) hypertension (principal); I65.23 Occlusion and stenosis of bilateral carotid arteries

== ENCOUNTER 2017-12-15 08:43 | Inpatient (IN) | payer OTHER ==
--- NOTE | 2017-12-02 11:35 | PAT Medication Instructions ---
Service Date Dec 02, 2017. Current Home Medication List Ibuprofen (Motrin), 400 MG PO Q6H PRN for Pain Lisinopril (Lisinopril), 20 MG PO QD@1400 Metoprolol Succ (Toprol Xl) (Toprol-Xl ), 100 MG PO QAM Multivitamin (Multivitamin), 1 TAB PO QAM Medication Instructions For Your Scheduled Surgery -Check with your surgeon for instructions for: Ibuprofen (Motrin), 400 MG PO Q6H PRN for Pain - Hold the following medications the day before surgery: Lisinopril (Lisinopril), 20 MG PO QD@1400 - Hold the following medications the morning of surgery: Multivitamin (Multivitamin), 1 TAB PO QAM - Take the following medications the morning of surgery with a sip of water: Metoprolol Succ (Toprol Xl) (Toprol-Xl ), 100 MG PO QAM If you have any questions please call us at [phone] or [phone] or [phone]
[2017-12-02 12:05] LABS: BASO % 0.5 %; BASO ABS # 0.04 K/uL (0-0.2); EOS % 0.8 %; EOS ABS # 0.07 K/uL (0-0.5); HEMOGLOBIN 14.5 g/dL (12.0-16.0); IG# 0.02 K/uL (0.00-0.02); LYMPH % 32.7 %; LYMPH ABS # 2.85 K/uL (1.2-3.4); MEAN CELL VOLUME 93.2 fL (80-100); MEAN CORPUSCULAR HEMOGLOBIN 30.7 pg (25-34); MEAN PLATELET VOLUME 11.5 fL (7.4-10.4); MONO % 6.1 %; MONO ABS # 0.53 K/uL (0.11-0.59); NEUT % 59.7 %; NEUT ABS # 5.21 K/uL (1.4-6.5); PLATELET COUNT 257 K/uL (130-400); RED CELL DISTRIBUTION WIDTH CV 14.8 % (11.5-14.5); RED CELL DISTRIBUTION WIDTH SD 50.5 fL (36.4-46.3); WHITE BLOOD COUNT 8.72 K/uL (4.8-10.8)
[2017-12-02 12:13] LABS: PTT PATIENT 24.7 SECONDS (21.0-31.0)
[2017-12-02 12:17] LABS: CALCIUM 9.4 mg/dl (8.5-10.1); CREATININE 0.4 mg/dl (0.60-1.20)
[~2017-12-15] VITALS: Ht 165.1 cm; Wt 55.5 kg
[2017-12-15] VITALS (22 sets, daily range): BP systolic 138–196; BP diastolic 41–71; PULSE 60–78; TEMP 36.3–36.7; O2SAT 93–100; Ht 165.1 cm; Wt 55.5 kg
[~2017-12-15 08:43] MED LIST changes: -AMLO-114 PO; +CEFAZOLIN 1000MG IV PUSH 7.5 ML IV SCH; +LACTATED RINGER'S 1000ML 1,000 ML IV SCH; -LOSA1TAB38 PO; -METO-217 PO; -TRAM-10 PO; -amiodarone hcl PO
[2017-12-15] MEDS ORDERED: amiodarone hcl PO (09:16)
[2017-12-15] MEDS ORDERED: LOSA1TAB38 PO (09:16)
--- NOTE | 2017-12-15 10:16 | History and Physical ---
History & Physical Date of Service Dec 15, 2017. History & Physical CC: Left internal carotid artery stenosis HPI: Ms. Schultz has never had any symptoms of a stroke or a mini stroke in the past that she is aware of, but at a recent routine physical, she was told that they heard something in her neck and sent her for ultrasound evaluation. She states that they called her and then told that she had a stenosis of her carotid artery and that she should see a vascular surgeon. The left internal carotid artery stenosis was confirmed on CTA. The patient specifically denies any symptoms of amaurosis, unilateral extremity weakness, numbness or tingling, difficulty speaking or swallowing, facial droop. She also denies headaches, fevers, chills, dizziness, chest pain, shortness of breath, abdominal pain, nausea, diarrhea, constipation, dysuria, hematuria, rest pain, claudication, nonhealing wounds or ulcers or other complaints. An ultrasound performed at [facility] demonstrates a significant stenosis of her left internal carotid artery with velocities measuring 625 cm per second and a diastolic velocity of 113 cm per second. This is consistent with a 95% stenosis. She has 50-69% stenosis of the right internal carotid artery and antegrade flow in both vertebrals. ALLERGIES: CODEINE. HOME MEDICATIONS: Reconciled on the chart and include the following: Metoprolol and multivitamin. PAST MEDICAL HISTORY: Positive for hypertension and anxiety. PAST SURGICAL HISTORY: Essentially negative. SOCIAL HISTORY: Positive for tobacco use. The patient states she has cut back to approximately 5 cigarettes daily, but has not yet been able to quit. FAMILY HISTORY: Positive for diabetes and hypertension. REVIEW OF SYSTEMS: Negative for fatigue, fevers, sweats, weight loss, exercise intolerance, abnormal moles or rashes, vision changes or photophobia, ear pain, sinus problems or sore throat, cough, shortness of breath, hemoptysis or wheezing, chest pain, palpitations, edema or syncope, abdominal pain, nausea, vomiting, diarrhea, constipation, dysuria, hematuria, muscle weakness, headaches , dizziness, numbness or seizures. PHYSICAL EXAMINATION: Vital signs are as follows: Blood pressure of 216/66 in the left arm and unable to be obtained in her right arm and heart rate 97, oxygen 95% on room air. The patient is 165.1 cm tall and weighs 60.5 kilograms. Constitutional: In general, patient is a generally healthy- appearing, well-nourished, well-developed elderly female in no acute distress. She ambulates without assistance and is active, alert and oriented x4 with normal recent and remote memory. Head is normocephalic, atraumatic. Eyes are EOMI. ENMT demonstrates no hearing loss, rhinorrhea or pharyngeal erythema. Neck is supple, nontender with midline trachea without masses or crepitus. Lung exam demonstrates no dyspnea. They are decreased throughout, but clear bilaterally. Cardiovascular exam demonstrates nondisplaced apical impulse with a regular rate and rhythm. She does have a 2/6 systolic ejection murmur noted. Peripheral pulses full and equal in all extremities as otherwise noted, specifically they are normal in her carotid and femoral pulses. Her brachial pulses are +2 bilaterally and her right radial is +1. Her left radial is +2. She has brisk capillary refill, no distal ischemia. Her DP pulse is nonpalpable bilaterally. She has +1 PT pulses, no signs of distal ischemia. The patient does demonstrate carotid bruits, as well as abdominal bruits throughout and femoral bruits. Abdomen is soft, nontender with normoactive bowel sounds in all 4 quadrants without guarding or rebound. There is no flank or CVA tenderness. I am unable to appreciate a pulsatile mass. Bilateral upper extremities demonstrate no cyanosis, edema, clubbing, varicosities or ulcers. Bilateral lower extremities demonstrate no cyanosis, edema, clubbing, varicosities, or ulcers. Neurologic: The patient has grossly intact cranial nerves and grossly intact sensation. ASSESSMENT AND PLAN: 1. Severe left internal carotid artery stenosis, asymptomatic. 2. Right internal carotid artery stenosis. 3. Possible right subclavian artery disease. PLAN: Patient is admitted for a left CEA. I have discussed the risks options and benefits of the procedure with the patient. The patient understands the risks options and benefits and agrees to the procedure.
[2017-12-15] MEDS ORDERED: DEXAMETHASONE SOD INJ 4 MG/ML VIAL ONE (10:17)
[2017-12-15] MEDS ORDERED: ONDANSETRON INJ 2 MG/ML 2 ML VIAL ONE ×2 (10:17→13:18)
[2017-12-15] MEDS ORDERED: NEOSTIGMINE METHYLSULFATE 5 MG/5 ML SYR ONE (10:17)
[2017-12-15] MEDS ORDERED: GLYCOPYRROLATE INJ 0.2 MG/ML VIAL ONE ×2 (10:17→11:01)
[2017-12-15] MEDS ORDERED: PROPOFOL IV EMULSION 10 MG/ML 20 ML VIAL IV ONE (10:17)
[2017-12-15] MEDS ORDERED: LIDOCAINE HCL 2% 2 ML VIAL (20MG/ML) ONE ×3 (10:17→14:41)
[2017-12-15] MEDS ORDERED: FENTANYL CITRATE INJ 50 MCG/1 ML 2 ML VIAL ONE ×2 (10:18→12:35)
[2017-12-15] MEDS ORDERED: MIDAZOLAM HCL 1 MG/ML 2ML VIAL ONE (10:18)
[2017-12-15] MEDS ORDERED: GELATIN SPONGE SZ 100 ONE (10:35)
[2017-12-15] MEDS ORDERED: BUPIVACAINE/EPINEPHRINE 0.5% MPF 1:200,000 30 ML VIAL ONE (10:35)
[2017-12-15] MEDS ORDERED: THROMBIN FOR SOLN 20000 UNIT KIT ONE (10:35)
[2017-12-15] MEDS ORDERED: CEFAZOLIN SOD 1 GM VIAL ONE (10:36)
[2017-12-15] MEDS ORDERED: HEPARIN SOD (PORCINE) 1000 UNIT/ML 10 ML VIAL ONE ×2 (10:36→12:31)
[2017-12-15] MEDS ORDERED: LIDOCAINE HCL 1% 20 ML VIAL ONE (10:36)
[2017-12-15] MEDS ORDERED: NITROGLYCERIN 5 MG/ML 10 ML VIAL ONE (11:01)
[2017-12-15] MEDS ORDERED: LARYING-O-JET KIT (LTA) ONE (11:01)
[2017-12-15] MEDS ORDERED: LABETALOL HCL IV 5 MG/ML 20ML IV PRN (12:30)
[2017-12-15] MEDS ORDERED: ONDANSETRON INJ 2 MG/ML 2 ML VIAL IV PRN (12:30)
[2017-12-15] MEDS ORDERED: HYDROmorphone INJ 0.5 MG/0.5 ML SYR IV PRN (12:30)
[2017-12-15] MEDS ORDERED: ATROPINE SULFATE 0.1 MG/ML 5ML SYR IV PRN (12:30)
[2017-12-15] MEDS ORDERED: ALBUTEROL HFA INHALER 8.5 GM INH ONE (13:18)
[2017-12-15] MEDS ORDERED: EpHEDrine SULFATE 50MG/5ML SYR ONE (13:30)
[2017-12-15] MEDS ORDERED: PHENYLEPHRINE HCL INJ 10 MG/ML VIAL ONE (13:34)
[2017-12-15] MEDS ORDERED: ROCURONIUM BROMID 50MG/5ML SYR ONE (13:35)
[2017-12-15] MEDS ORDERED: ROCURONIUM BROMIDE 10 MG/ML 5 ML VIAL IV ONE (13:35)
--- NOTE | 2017-12-15 14:00 | [facility] Post Operative Brief Note ---
Immediate Operative Summary Operative Date Dec 15, 2017. Pre-Operative Diagnosis Severe left carotid artery stenosis Post-Operative Diagnosis same as preop Procedure(s) Performed Left carotid endarterectomy with bovine patch angioplasty Surgeon Dr. Yinka Cedeno Psych Assistant Surgeon(s) Ashly Portillo, Alicja Rousseau-Fellow Estimated Blood Loss 130 ml Findings Consistent with Post-Op Diagnosis Specimens A: Left carotid plaque Drains None Anesthesia Type General Complication(s) none Disposition Accompanied Pt To Recover: no Disposition: Recovery Room / PACU
[2017-12-15] MEDS ORDERED: MoRPHine SULFATE 4 MG/ML 1 ML CARP\\VIAL IV PRN (14:15)
[2017-12-15] MEDS ORDERED: CEFAZOLIN IV 1,000 MG in DEXTROSE 5% 50ML 50 ML IV SCH (14:15)
[2017-12-15] MEDS ORDERED: OXYCODONE/ACETAMINOPHEN 5-325 TAB PO PRN (14:15)
[2017-12-15] MEDS ORDERED: NITROGLYCERIN/D5W 100 MCG/ML BTL ONE (14:20)
--- NOTE | 2017-12-15 15:56 | Anesthesiology Progress Note ---
Anesthesia Post Op Note Date & Time Dec 15, 2017 at 15:55 Vital Signs Pain Intensity: 0 Vital Signs Past 12 Hours Date Time Temp Pulse Resp B/P (MAP) Pulse Ox O2 Delivery O2 Flow Rate FiO2 12/15/17 15:45 61 13 165/53 100 Nasal Cannula 2 167/60 12/15/17 15:35 37.2 66 15 164/88 100 Nasal Cannula 2 155/42 (78) 12/15/17 15:25 63 17 160/50 99 Nasal Cannula 2 150/53 (74) 12/15/17 15:15 69 21 100 Oxymask 10 143/44 12/15/17 15:05 66 15 137/48 98 Oxymask 10 166/68 12/15/17 14:59 37.2 65 18 104/60 100 Oxymask 10 12/15/17 09:20 36.3 63 22 177/71 97 Room Air Notes Mental Status: alert / awake / arousable, participated in evaluation Pt Amnestic to Procedure: Yes Nausea / Vomiting: adequately controlled Pain: adequately controlled Airway Patency, RR, SpO2: stable & adequate BP & HR: stable & adequate Hydration State: stable & adequate Anesthetic Complications: no major complications apparent The patient is awake, stable, and moving all extremities. She will be monitored overnight in the ICU. I spoke to the ICU team about the patient.
[2017-12-15] MEDS: D5W AND 1/2NSS 1,000 ML IV SCH ×2 (17:00→22:05)
[2017-12-15] MEDS ORDERED: AMLO-114 PO (17:53)
[2017-12-15] MEDS: LOSARTAN POTASSIUM 50 MG TAB PO SCH (17:55)
[2017-12-15] MEDS ORDERED: LOSARTAN POTASSIUM 50 MG TAB PO SCH (18:15)
--- NOTE | 2017-12-15 18:16 | OPERATIVE REPORT ---
DATE OF OPERATION: 12/15/2017 PREOPERATIVE DIAGNOSIS: Severe left internal carotid artery stenosis. POSTOPERATIVE DIAGNOSES: Severe left internal and common carotid artery stenosis. PROCEDURE: Left carotid endarterectomy with a bovine pericardial patch angioplasty. SURGEON: Dr. Yinka Cedeno. FRONT END APPLICATION DEVELOPER: Dr. Alicja Rousseau., BEATA Tubbs. ESTIMATED BLOOD LOSS: 130 mL SPECIMENS: Left carotid plaque. ANESTHESIA: General endotracheal anesthesia plus local. COMPLICATIONS: None. INDICATIONS: Mrs. Klaudia Schultz is a pleasant 72-year-old woman with history of hypertension and anxiety who was found to have a bruit on physical exam. She underwent a carotid ultrasound which was concerning for severe stenosis. This is confirmed by CTA. She was asymptomatic with respect to her carotid disease. Given the severe stenosis, she was recommended to undergo left carotid endarterectomy. The risks, benefits and alternatives were discussed with the patient and she consented to the procedure. DESCRIPTION OF PROCEDURE: Patient was taken to the operating room and placed in the supine position. General endotracheal anesthesia was induced by our anesthesia colleagues. Radial A-line was placed. The left neck and chest were prepped and draped in the usual sterile fashion. A safety timeout was performed and the patient, procedure, and sidedness were correctly identified. Skin incision was made over the anterior border of the sternocleidomastoid. Bovie electrocautery was used to divide subcutaneous tissues. The platysma was identified and divided with Bovie electrocautery. The sternocleidomastoid was identified and retracted laterally. The carotid sheath was entered and the carotid artery was identified and dissected circumferentially. The superior thyroid and external carotids were identified and dissected circumferentially. The carotid bulb was palpated and the plaque appeared to extend distally within the internal. Given the extent of the plaque, we felt the need to extend our dissection more distally. The posterior belly of the digastric was encountered and divided. This gave us adequate exposure of the distal internal carotid artery and a place that was soft enough to clamp. Patient was heparinized with 7000 units of intravenous heparin. After several minutes, the internal carotid, common carotid, external, and superior thyroid arteries were clamped sequentially. An 11 blade scalpel was used to make an arteriotomy within the common carotid. This was extended into the internal carotid with Quinonez scissors. We initially were planning to place a shunt for. Exam and assessment of the lumen of the common carotid showed a significant ulceration and it did not appear safe to place a shunt at that time. There was pulsatile backbleeding from the internal carotid. We elected to forego shunt placement at this time in our procedure. We proceeded to do our endarterectomy with eversion of the external carotid. The carotid lumen was irrigated with heparinized saline and small bits of plaque were removed, the portion of plaque at the common carotid. Extent of the endarterectomy was secured to the arterial wall with two 7-0 tacking sutures. Once our endarterectomy was complete and we removed the ulcerated plaque, we felt it was safe to place the shunt at that time. The shunt was inserted into the internal carotid artery and a Néstor clamp was placed to secure the shunt into the internal carotid. The shunt was backbled and then placed into the common carotid. Néstor clamp was then used to secure the shunt into the common carotid. A bovine pericardial patch was then brought onto the field. This was cut to an appropriate size and sutured in place with 7-0 Prolene at beginning at the internal carotid. This was performed in a 4-quadrant fashion with the distal 2 quadrants completed first. 6-0 Prolene was then used to secure the proximal aspect of the patch to the common carotid apex. The remaining 2 quadrants were completed. Prior to completion of the patch, the shunt was removed and all arteries were backbled. The lumen was irrigated with heparinized saline. Following completion of the patch, there appeared to be 2 small areas of bleeding from the patch at the distal medial quadrant of the patch. Two 7-0 sutures were placed with good hemostasis. Thrombin, Gelfoam and manual pressure were applied to the wound for several minutes with good hemostasis. The platysma was reapproximated with 3-0 Vicryl in a running fashion. Skin was reapproximated with 4-0 Vicryl in a running subcuticular fashion. Dermabond skin glue was applied to the skin incision. Patient was awakened from anesthesia and was moving all 4 extremities. She tolerated the procedure well and there were no immediate complications. She was transferred to the recovery area in stable condition. Dr. Yinka Cedneo was present for the entire procedure. I attest to the content of the Intraoperative Record and any orders documented therein. Any exception s are noted below.
[2017-12-15] MEDS: CEFAZOLIN IV 1,000 MG in SYRINGE 0 ML IV SCH (18:46)
[2017-12-15] MEDS: ACETAMINOPHEN 325 MG TAB PO PRN (19:05)
--- NOTE | 2017-12-15 19:14 | Critical Care Consultation ---
Critical Care Consultation Date of Consultation: Dec 15, 2017. Attending Physician: Yinka Cedeno M.D. Reason for Consultation: "Consult and co-manage" History of Present Illness 72-year-old female was noted to have carotid bruits during a recent routine physical. Follow-up on ultrasound is consistent with a 95% stenosis of her left internal carotid artery. She is also noted to have a 50-69% stenosis of the right internal carotid artery and antegrade flow in both vertebrals. Apparently patient was completely asymptomatic from all of this. She underwent a left CEA earlier this morning. On interview postop this evening, patient states that "I feel good". She says she has very minimal local neck discomfort. Otherwise she says she feels quite good and was able to eat dinner without any nausea/vomiting or other acute concerns. Past Medical/Surgical History PMH: Hypertension, hyperlipidemia, anxiety, carotid artery stenosis, cholelithiasis, hypokalemia, tobacco use. PSH: Cholecystectomy. Social History Smoking Status: Current Every Day Smoker Drug Use: none Marital Status: Housing Status: lives with family Occupation Status: unemployed Allergies Coded Allergies: Codeine (Verified Adverse Reaction, Intermediate, STOMACH PAIN, 12/15/17) Home Medications Scheduled Amlodipine (Norvasc), 10 MG PO DAILY Losartan Potassium (Cozaar), 1 TAB PO DAILY Metoprolol Succ (Toprol Xl) (Toprol-Xl ), 100 MG PO QAM Multivitamin (Multivitamin), 1 TAB PO QAM Scheduled PRN Ibuprofen (Motrin), 400 MG PO Q6H PRN for Pain Tramadol (Ultram), 50 MG PO Q8H PRN for Pain Current Inpatient Medications Current Inpatient Medications Medications (Trade) Dose Ordered Sig/Rhoda Route Start Time Stop Time Status Last Admin Dose Admin Lactated Ringer's 1,000 ml @ 15 mls/hr Q24H IV 12/15/17 06:00 12/16/17 05:59 Cefazolin Sodium 7.5 ml @ 2.5 mls/min PREOP IV 12/15/17 06:00 12/16/17 05:59 12/15/17 10:52 2.5 MLS/MIN Acetaminophen (Tylenol Tab) 650 mg Q4H PRN PO 12/15/17 14:15 01/14/18 14:14 Oxycodone/ Acetaminophen (Percocet 5-325mg Tab) FOR MODERATE PAIN ... Q4H PRN PO 12/15/17 14:15 12/29/17 14:14 Morphine Sulfate (MoRPHine SULFATE INJ) 4 mg Q4H PRN IV 12/15/17 14:15 12/29/17 14:14 Dextrose/Sodium Chloride 1,000 ml @ 125 mls/hr Q8H IV 12/15/17 14:05 01/14/18 14:04 Enoxaparin Sodium (Lovenox Inj) 30 mg Q12H SQ 12/16/17 09:00 01/15/18 08:59 Losartan Potassium (coZAAR TAB) 100 mg DAILY PO 12/16/17 09:00 01/15/18 08:59 12/15/17 17:55 100 MG Metoprolol Succinate (Toprol Xl Tab) 100 mg QAM PO 12/16/17 09:00 01/15/18 08:59 Multivitamins (Multivitamin Tab) 1 tab QAM PO 12/16/17 09:00 01/15/18 08:59 Cefazolin Sodium 1000 mg/Syringe 7.5 ml @ 2.5 mls/min Q8H IV 12/15/17 18:00 12/16/17 02:02 Amlodipine Besylate (Norvasc Tab) 10 mg QAM PO 12/16/17 09:00 01/15/18 08:59 Losartan Potassium (coZAAR TAB) 100 mg 1815 PO 12/15/17 18:15 12/15/17 19:15 Review of Systems Constitutional: No fever, No chills Respiratory: No cough, No shortness of breath Cardiovascular: No chest pain, No edema Abdomen: No pain, No nausea, No vomiting, No diarrhea Physical Exam Date Time Temp Pulse Resp B/P (MAP) Pulse Ox O2 Delivery O2 Flow Rate FiO2 12/15/17 16:40 99 Nasal Cannula 2.0 12/15/17 16:15 67 14 158/57 99 Nasal Cannula 2 165/40 12/15/17 16:00 64 17 156/61 99 Nasal Cannula 2 155/62 12/15/17 15:45 61 13 165/53 100 Nasal Cannula 2 167/60 12/15/17 15:35 37.2 66 15 164/88 100 Nasal Cannula 2 155/42 (78) 12/15/17 15:25 63 17 160/50 99 Nasal Cannula 2 150/53 (74) 12/15/17 15:15 69 21 100 Oxymask 10 143/44 12/15/17 15:05 66 15 137/48 98 Oxymask 10 166/68 12/15/17 14:59 37.2 65 18 104/60 100 Oxymask 10 12/15/17 09:20 36.3 63 22 177/71 97 Room Air General Appearance: Awake, alert & oriented, comfortable in general, NAD. Neck: Well approximated left anterior sutured surgical incision. No present drainage or bleeding. Neck is grossly supple. CV: +S1S2 RRR, 2/6 systolic murmur. Pulm: Clear to auscultation throughout. Abdomen: +BS, soft, non-tender, non-distended. Extremities: No pedal edema or calf tenderness. Moving all extremities naturally and easily. Left radial A-line in place. Neuro: No gross neuro deficits. Moving all extremities easily. Assessment & Plan 72-year-old female admitted on [id number] to undergo a left carotid endarterectomy for left internal carotid artery stenosis. PMH: Hypertension, hyperlipidemia, anxiety, carotid artery stenosis, cholelithiasis, hypokalemia, tobacco use. PSH: Cholecystectomy. FITTER TYPE BAR AND SEGMENT: CAM-ICU negative. Minimal local postsurgical pain immediately postop. - Tylenol as needed for pain. Patient has codeine allergy. Has tolerated oxycodone in the past. Consider morphine as needed for breakthrough pain. Pulm: No known underlying pulmonary disease. However patient is smoked for 50+ years. Presently satting well on room air. Will monitor. CVS: S/p CEA as above. Placed on home Norvasc 10 mg daily, losartan 100 mg daily, metoprolol 100 mg daily. ID: Received ancef perioperatively. Afebrile immediately postop. Will monitor for infectious symptoms. Endo: No known diabetes or thyroid disease. Preop random glucose 95. Will monitor here. Renal/Lytes: Preop Cr 0.4. Apparently patient may have a renal mass that is being evaluated by nephrology as outpatient next month. Otherwise no known renal issues. GI: History cholecystectomy. Otherwise no known underlying GI issues. AHA diet. Heme: Preop H&H . Platelets 257. Will monitor postop. DVT prophy: Lovenox 30 mg q12h. Leg compression stockings. Skin: Left neck surgical site undressed, no present drainage or bleeding. Lines: Left radial art line. Right hand PIV. Code status: Full code. PT/OT: Deferred. Disposition: ICU care postop. Resident Physician Supervision Note: Dr. Muhammad was resident physician during care of patient. I separately evaluated patient and did history and exam. I discussed the case with the resident and generally agree with the findings and plan. Status post carotid endarterectomy Documented By: Zhang Smyth DO Resident Tracking Resident Involvement: Resident Care Provided Care Provided: Adult Hospital Medicine (ICU)
[2017-12-16] VITALS (15 sets, daily range): BP systolic 97–184; BP diastolic 30–71; PULSE 58–85; TEMP 36.7–36.8; O2SAT 94–99
[2017-12-16] MEDS: ACETAMINOPHEN 325 MG TAB PO PRN (01:31)
[2017-12-16] MEDS: CEFAZOLIN IV 1,000 MG in SYRINGE 0 ML IV SCH (01:31)
[2017-12-16] MEDS ORDERED: LABETALOL HCL IV 5 MG/ML 20ML IV STA (01:52)
[2017-12-16] MEDS ORDERED: LABETALOL HCL IV 5 MG/ML 20ML IV ONE (01:53)
--- NOTE | 2017-12-16 07:17 | Progress Note ---
Progress Note Date of Service: Dec 16, 2017. Subjective No complaints. No weakness. No swallowing difficulty. No hoarseness. Problem List Medical Problems: (1) Hypokalemia Status: Chronic Objective Vital Signs Vital Signs Past 12 Hours Date Time Temp Pulse Resp B/P (MAP) Pulse Ox O2 Delivery O2 Flow Rate FiO2 12/16/17 06:01 62 21 169/53 (91) 96 12/16/17 05:24 69 14 155/ (51) 94 12/16/17 04:30 70 4 (64) 98 128/30 12/16/17 04:01 58 15 131/52 (63) 97 134/35 12/16/17 04:00 Nasal Cannula 2.0 12/16/17 04:00 66 16 (70) 97 123/43 12/16/17 04:00 36.7 66 16 123/43 (69) 97 12/16/17 03:30 59 16 (67) 98 132/37 12/16/17 03:01 74 20 97/58 (64) 98 176/63 12/16/17 02:30 68 14 (71) 98 136/39 12/16/17 02:01 62 20 145/39 (74) 98 12/16/17 02:00 60 18 (63) 145/39 12/16/17 01:51 70 19 182/71 (98) 99 184/51 12/16/17 01:00 60 18 (82) 98 161/44 12/16/17 00:00 36.7 59 22 125/34 (64) 98 12/16/17 00:00 59 22 (61) 98 125/34 12/15/17 23:59 Nasal Cannula 2.0 12/15/17 23:09 76 20 153/48 (83) 98 12/15/17 23:09 76 20 149/51 (87) 98 153/48 12/15/17 23:00 65 21 138/41 (73) 98 12/15/17 23:00 65 21 (72) 98 138/41 12/15/17 21:30 71 19 151/43 (79) 95 Nasal Cannula 2.0 12/15/17 21:00 65 15 144/41 (75) 95 12/15/17 20:30 78 21 12/15/17 20:01 60 17 159/43 (81) 98 12/15/17 20:00 97 Nasal Cannula 2.0 12/15/17 20:00 64 18 Nasal Cannula 2.0 12/15/17 19:30 69 18 160/48 (85) 93 Exam VSS Afebrile Awake and alert Incision dry and clean No neuro deficits. Laboratory and Microbiology Results Past 24 Hours Test 12/16/17 07:05 Range/Units Microbiology Results 12/15/17 MRSA DNA Surveillance Screen - Final, Complete Specimen Negative for MRSA by DNA Probe Imp: Left CEA Plan: Patient doing well with no neuro deficits. No difficulty in swallowing and tongue midline. Will D/C today
[2017-12-16] MEDS ORDERED: TRAM-10 PO (07:18)
--- NOTE | 2017-12-16 07:19 | Discharge Instructions ---
Discharge Instructions Date of Service Dec 16, 2017. Admission Reason for Admission: Left Internal Carotid Artery Stenosis Discharge Discharge Diagnosis / Problem: Left internal carotid artery stenosis, left carotid endarterectomy Discharge Goals Goal(s): Therapeutic intervention Activity Recommendations Activity Limitations: per Instructions/Follow-up section . Instructions / Follow-Up Instructions / Follow-Up Call [phone] to schedule a follow up appointment if one not already scheduled. SPECIAL CARE INSTRUCTIONS: Medications: * Continue to take Aspirin as directed. Incision Care: * You may shower, but do not rub incision. You may let the warm soapy water run over it. Be sure to dry the incision well after bathing. * Do not shave directly over the incision until it is healed. * DO NOT IMMERSE THE INCISION IN A TUB/POOL/etc. UNTIL HEALED. Restrictions: * Do not drive for at least one week or if you are still taking any narcotic pain medication. * Do not lift anything heavier than a gallon of milk for one week after going home. Possible Complications: * Numbness - It is normal to have some numbness around the incision. Numbness can extend beyond the incision to areas of the neck, ear and face. The numbness is due to bruising of nerves during the surgery and will gradually improve over a period of months. * Hoarseness/Difficulty Speaking and Swallowing - The bruising of nerves in the neck can also cause a hoarse voice, difficulty speaking or swallowing. This may improve over time, HOWEVER, if it continues for more than a few days please contact our office ([phone]). * Excessive Swelling - There will be some swelling immediately after surgery which usually resolves within one week. If you notice that the swelling is getting worse, notify your surgeon ([phone]). * Drainage/Bleeding - If there is any drainage or bleeding, it should be a very small amount (less than a teaspoon per day). If you have excessive bleeding or drainage from the incision, call your surgeon ([phone]) right away. ACTIVATION OF EMERGENCY MEDICAL SYSTEM: Call [phone], immediately, if you experience any of the following: Warning Signs and Symptoms of Stroke: * Sudden numbness or weakness of the face, arm or leg, especially on one side of the body * Sudden confusion, trouble speaking or understanding * Sudden trouble seeing in one or both eyes * Sudden trouble walking, dizziness, loss of balance or coordination * Sudden severe headache with no cause Do not delay calling 911 if you experience any warning signs or symptoms of a stroke. Delay in seeking medical attention may affect what treatments can be given to you. Risk Factors for Stroke: You can reduce your chances of stroke by working with your medical provider to adopt a healthy lifestyle. Some specific ways to lower your chance of stroke are: * If you are a smoker, now is the time to stop smoking cigarettes * If you are diabetic, improve the control of your blood sugars * Avoid excessive amounts of alcohol * Control high blood pressure * Lose weight if you are overweight * Be sure to lead an active lifestyle * Eat a healthy diet low in salt, cholesterol and fat You should know about other risk factors for stroke that you are unable to control. These include: * Age 55 years or older * Male gender * Certain racial groups: , or / * Family History of Stroke, Mini stroke or Heart Attack * Sickle Cell Disease You will be receiving a call from the Vascular Surgery Nurse after you are discharged. FOLLOW UP VISIT: It is important for you to keep your follow up appointments with your medical provider. Keep any scheduled doctor appointments. Current Hospital Diet Patient's current hospital diet: AHA Diet (Heart Healthy) Discharge Diet Recommended Diet: AHA Diet (Heart Healthy) Procedures Procedures Performed: Left carotid endarterectomy with bovine patch angioplasty Pending Studies Studies pending at discharge: no Medical Emergencies . Who to Call and When: Medical Emergencies: If at any time you feel your situation is an emergency, please call 911 immediately. . Non-Emergent Contact Non-Emergency issues call your: Surgeon . "Provider Documentation" section prepared by Yinka Cedeno. . [place] Drug Monitoring Program Search Results: no issues identified
[2017-12-16] MEDS: LOSARTAN POTASSIUM 50 MG TAB PO SCH (07:45)
[2017-12-16] MEDS ORDERED: METOPROLOL SUCC 50MG EXT REL TAB PO SCH (09:00)
[2017-12-16] MEDS ORDERED: ENOXAPARIN 30 MG/0.3 ML SYR SQ SCH (09:00)
[2017-12-16] MEDS ORDERED: AMLODIPINE BESYLATE 5 MG TAB PO SCH (09:00)
[2017-12-16] MEDS ORDERED: MULTIVITAMIN TAB PO SCH (09:00)
[2017-12-16] MEDS ORDERED: AMIODARONE HCL PO SCH (09:00)
--- NOTE | 2017-12-17 14:08 | DISCHARGE SUMMARY ---
ADMISSION DIAGNOSIS: Severe left internal carotid artery stenosis. DISCHARGE DIAGNOSES: 1. Status post left carotid endarterectomy with patch. 2. Severe left internal carotid artery stenosis. DISCHARGE CONDITION: Stable. CONSULTATIONS IN THE HOSPITAL: Included none. PROCEDURES WHILE IN THE HOSPITAL: Included her left carotid endarterectomy, which was performed on 12/15/2017 with an EBL of 130 mL and no significant complications. HISTORY OF PRESENT ILLNESS: Mrs. Schultz is a 72-year-old female who presented to Dr. Cedeno's office for carotid stenosis after an abnormal carotid ultrasound was performed by her family physician. The patient stated that her family physician heard a sound in her neck during the exam and ordered her to have an ultrasound. The patient denies any complaints related to this or symptoms including history of TIA or CVA, amaurosis, unilateral extremity weakness, numbness or tingling, difficulty speaking or swallowing, facial droop or other concerns. In the office, the patient was recommended to have a CTA to confirm the degree of stenosis as well as the location. This confirmed severe left internal carotid artery stenosis and the patient was recommended to undergo carotid endarterectomy to reduce her risk of CVA. The patient expressed understanding and agreement to proceed. HOSPITAL COURSE: The patient was admitted on 12/15/2017 after undergoing left carotid endarterectomy. The patient admitted some fatigue, but denies any other complaints postoperatively. Specifically, she was able to take well by mouth. She was moving, eating, drinking, using the restroom and in her normal level of activity prior to discharge, she was felt to be stable enough for discharge on postop day 1. PHYSICAL EXAMINATION: VITAL SIGNS: On day of discharge, her vital signs were as follows: Blood pressure of 167/71 with a pulse of 85, temperature of 36.8, respiratory rate of 18 and oxygen 94% on room air. CONSTITUTIONAL: The patient is a mildly chronically ill appearing elderly female in no acute distress. She ambulated without assistance and was active, alert and oriented x4 with normal recent and remote memory. HEAD: Normocephalic and atraumatic. EYES: EOMI. ENMT: Demonstrated no hearing loss, rhinorrhea or pharyngeal erythema. NECK: Left side of her neck demonstrated some mild local ecchymosis and very mild edema, but no large hematoma was noted. Her trachea remained midline. Her incision was well sealed and there was no significant erythema or drainage. HEART: Demonstrated regular rate and rhythm. LUNGS: Clear. ABDOMEN: Soft, nontender with normoactive bowel sounds. EXTREMITIES: Peripheral pulses are normal in her brachial, radial, femoral pulses. Her lower extremity distal pulses are +1. She had brisk capillary refill. No sign of distal ischemia. NEUROLOGIC: The patient had grossly intact cranial nerves and grossly intact sensation without any focal deficits. DIET UPON DISCHARGE: Should be a low-cholesterol AHA diet. MEDICATIONS UPON DISCHARGE: Were reconciled in the chart and are as per discharge instructions. FOLLOWUP: Should with Dr. Cedeno or his PA Ashly Olivarez within 2 weeks for reevaluation. Advised to call the office with any other questions.
== END 2017-12-16 10:00 | disposition home or self-care (01) | DRG 39 ==
LOC: C.ACU 08:43 → C.MSICU 14:09 → ENRESERV 15:51
PROVIDERS: ADMIT Surgery Vascular Surgery; ATTEND Surgery Vascular Surgery
PROC: 03CJ0ZZ Extirpation of Matter from Left Common Carotid Artery, Open Approach (ICD-10-PCS; principal; 2017-12-15 11:00)
PROC: 03UJ0KZ Supplement Left Common Carotid Artery with Nonautologous Tissue Substitute, Open Approach (ICD-10-PCS; principal; 2017-12-15 11:00)
DX: I65.22 Occlusion and stenosis of left carotid artery (principal); I10 Essential (primary) hypertension; F41.9 Anxiety disorder, unspecified; F17.210 Nicotine dependence, cigarettes, uncomplicated; Z79.899 Other long term (current) drug therapy

== ENCOUNTER → 2017-12-24 | Outpatient (CLI) | payer OTHER ==
[~2017-12-24] MED LIST changes: +AMLO-114 PO; -CEFAZOLIN 1000MG IV PUSH 7.5 ML IV SCH; -LACTATED RINGER'S 1000ML 1,000 ML IV SCH; +LOSA1TAB38 PO; -LSN20 PO; +TRAM-10 PO
--- NOTE | 2017-12-24 16:31 | DIAGNOSTIC IMAGING REPORT ---
(CHEST) THORAX WITHOUT CLINICAL HISTORY: 72 years-old Female presenting with PULMONARY NODULE. TECHNIQUE: Multidetector CT imaging of the chest was performed without the use of intravenous contrast. IV contrast: None. A dose lowering technique was used consistent with the principles of ALARA (as low as reasonably achievable). COMPARISON: Chest x-ray from 09/13/[address] of abdomen and pelvis from 08/25/2017. CT DOSE (mGy.cm): The estimated cumulative dose is 154.54 mGycm. FINDINGS: Application Architect Manager topogram: Unremarkable. On soft tissue windows, multiple thyroid nodules expand the gland, the largest measuring 12 mm on the right. No axillary, supraclavicular, hilar, or mediastinal lymphadenopathy. Atherosclerosis of the aorta. Normal heart size. Coronary artery and aortic valve calcification. No pericardial or pleural effusion. Upper abdomen normal. On lung windows, mild apical predominant emphysematous changes. Punctate peripheral solid nodule in the right lower lobe (series 4 image 153). Mild smooth interlobular septal thickening at the lung bases. Redemonstration of the solid peripheral 3 mm nodule at the left lung base (series 4 image 206). Airways patent. On bone windows, degenerative changes of the spine. IMPRESSION: 1. Punctate solid right lower lobe nodule and 3 mm solid left lower lobe nodule. Follow-up per [employer] 2017 recommendations below. 2. Emphysema. Please refer to below summary of Fleischner Society 2017 recommendations for follow-up of incidental CT nodules (H Jae et al. Guidelines for management of incidental pulmonary nodules detected on CT images: From the Fleischner Society 2017. Radiology 2017; 284: 228-243.) SOLID NODULES Single nodule; size < 6 mm * Low risk patients: No routine follow-up * High risk patients: Optional CT at 12 months Single nodule; size 6-8 mm * Low risk patients: CT at 6-12 months, then consider CT at 18-24 months * High risk patients: CT at 6-12 months, then at 18-24 months Single nodule; size > 8 mm * Either low or high risk patients: Considered CT at 3 months, PET/CT, or tissue sampling Multiple nodules; size < 6 mm * Low risk patients: No routine follow up * High risk patients: Optional CT at 12 months Multiple nodules; size 6-8 mm * Low risk patients: CT at 3-6 months, then consider CT at 18-24 months * High risk patients: CT at 3-6 months, then at 18-24 months Multiple nodules; size > 8 mm * Low risk patients: CT at 3-6 months, then consider at 18-24 months * High risk patients: CT at 3-6 months, then at 18-24 months SUBSOLID NODULES Single ground-glass nodule * Nodule size < 6 mm: No routine follow-up * Nodule size > or = 6 mm: CT at 6-12 months to confirm persistence, then CT every 2 years until 5 years Single part-solid nodule * Nodule size < 6 mm: No routine follow-up * Nodules size > or = 6 mm: CT at 3-6 months to confirm persistence. If unchanged and solid component remains < 6 mm, annual CT should be performed for 5 years Multiple nodules * Nodule size < 6 mm: CT at 3-6 months. If stable, consider CT at 2 and 4 years. * Nodules size > or = 6 mm: CT at 3-6 months. Subsequent management based on the most suspicious nodule(s) NOTE: 1) These guidelines apply to incidental nodules. These guidelines do NOT apply to patients younger than 35 years, immunocompromised patients, or patients with cancer. 2) Risk categories: * Low risk patients: Minimal or absent history of smoking and/or other known risk factors * High risk patients: History of smoking, exposure to other carcinogens, emphysema, fibrosis, upper lobe location, family history of lung cancer, etc. 3) If a nodule up to 8 mm is partly solid or is ground glass, further follow-up is required after 24 months to exclude possible slow growing adenocarcinoma. Electronically signed by: Darryl Johnson M.D. 12/24/2017 4:30 PM Dictated Date/Time: 12/24/2017 4:00 PM
== END | disposition home or self-care (01) ==
LOC: C.CTS 15:49
PROVIDERS: ATTEND Family Medicine
DX: R91.1 Solitary pulmonary nodule (principal)

== ENCOUNTER → 2018-03-21 | Outpatient (CLI) | payer OTHER ==
[~2018-03-21] MED LIST changes: -AMLO-114 PO; +AMLO10TA3 PO
[2018-03-21 17:08] LABS: BLOOD UREA NITROGEN 19 mg/dl (7-18); CALCIUM 8.6 mg/dl (8.5-10.1); CARBON DIOXIDE 33 mmol/L (21-32); CREATININE 0.48 mg/dl (0.60-1.20); GLUCOSE 103 mg/dl (70-99); POTASSIUM 3.3 mmol/L (3.5-5.1); SODIUM 136 mmol/L (136-145)
== END | disposition home or self-care (01) ==
LOC: C.LABPBG 11:32
PROVIDERS: ATTEND Family Medicine
DX: R11.2 Nausea with vomiting, unspecified (principal)

== ENCOUNTER → 2018-04-01 | Outpatient (CLI) | payer OTHER ==
[2018-04-01 17:11] LABS: BLOOD UREA NITROGEN 17 mg/dl (7-18); CALCIUM 9.4 mg/dl (8.5-10.1); CARBON DIOXIDE 32 mmol/L (21-32); CREATININE 0.62 mg/dl (0.60-1.20); GLUCOSE 101 mg/dl (70-99); POTASSIUM 4.2 mmol/L (3.5-5.1); SODIUM 137 mmol/L (136-145)
== END | disposition home or self-care (01) ==
LOC: C.LABPBG 11:18
PROVIDERS: ATTEND Family Medicine
DX: I10 Essential (primary) hypertension (principal); E87.6 Hypokalemia; R39.9 Unspecified symptoms and signs involving the genitourinary system

== ENCOUNTER 2020-02-12 13:36 | Observation (INO) ==
[2020-02-12] MEDS ORDERED: SODIUM CHLORIDE 0.9% 1000ML 1,000 ML IV STA (13:50)
--- NOTE | 2020-02-12 14:05 | Emergency Department Note ---
Impression & Plan Abdominal pain, lower, Leukocytosis, Low back pain ED Provider Note NAME: YG GARCIA AGE: 74 SEX: F ARRIVES VIA: Walk-In INFORMANT: [Patient] ED PROVIDER(S): Kraig Horta MD CHIEF COMPLAINT: Abdominal pain PLAN: Disposition: Admitted Condition: [Good] MEDICAL DECISION MAKING: Patient presented with complaints of abdominal pain. She had blood work and imaging performed. CT imaging did not reveal any evidence of acute process. Urinalysis was not overly concerning for infection however because of some white cells a culture was sent. She has a persistent leukocytosis on her CBC compared to outpatient studies. Chemistry panels were unremarkable except for hypokalemia. The patient states she has not been taking her potassium supplement as prescribed on a regular basis and is on a diuretic. She was given IV and oral potassium. I did discuss inpatient and outpatient treatment with her. The patient initially wanted to go home and I was making arrangements with that. I contacted the patient's son at her request and discussed the case. He noted that she has been doing well and they were unhappy with the primary office expediting her evaluation as an outpatient. The patient then became uncomfortable with the idea of going home in addition to that the son noted that she has been having increasing complaints of back pain. I did discuss this with her and in light of the persistent leukocytosis a lumbar MRI was ordered. I consulted with the [facility] hospitalist, Dr. Clint Barth and the patient was evaluated for further management. Triage Nursing notes reviewed and agree them. [Additional history obtained from] patient's son Dhruv [Prior medical records reviewed] previous CBC restarted leukocytosis. Vital Signs: reviewed and remarkable for [no significant abnormalities] Differential diagnosis: Appendicitis, ovarian cyst, ovarian torsion, ectopic , TOA, PID, infections, diverticulitis, UTI, obstruction, mesenteric ischemia, aortic pathology, inflammatory bowel disease, renal colic, PUD, pancreatitis, biliary pathology, hernia, volvulus, constipation, as well as other pathologies. ER treatment provided: Saline hydration IV potassium Oral potassium Diagnostics interpreted by me: Cardiac Monitoring: Cardiac monitoring ordered by me: The patient was placed on continuous cardiac monitoring and observed. It revealed a normal sinus rhythm at 77 beats per minute without ectopy or evidence of dysrhythmia. Laboratory studies: As above Imaging studies: CT scan of the abdomen pelvis was negative. I refer you to the EMR for details. Consultation(s): [facility] HPI: The patient is a 74 year old female who presents to the Emergency Room with complaints of lower abdominal pain. This started a few weeks ago and is worsening. The patient also notes the following associated symptoms, mild vomiting, gassy feeling, diarrhea. Pain does radiate somewhat to her back. The patient has found no relieving factors. Current pain is rated as 0/10. Pain increases with eating. 10lb wt loss. Pt denies LOC, headache, fevers, chills, diaphoresis, visual changes, neck pain, chest pain, breathing difficulties, upper back pain, melena, hematochezia, urinary symptoms, numbness, weakness, lymphadenopathy, rash, or other complaints. ROS: See above HPI for pertinent positives & negatives. A total of [10] systems reviewed and were otherwise negative. PAST MEDICAL HISTORY:[See Below] HTN PAST SURGICAL HISTORY:[See Below] FAMILY HISTORY:[See Below] SOCIAL HISTORY:[See Below]Lives alone. +tobacco HOME MEDICATIONS:[See Below] ALLERGIES:[See Below] VITALS:[See Below] PHYSICAL EXAMINATION: GENERAL: Awake, alert, well-appearing, in no distress HENT: Normocephalic, atraumatic. Oropharynx unremarkable. EYES: Normal conjunctiva. Sclera non-icteric. NECK: Inspection normal. Non-tender. Supple. No nuchal rigidity. FROM. No masses. RESPIRATORY: Clear to auscultation. No wheezes. No rales. Normal respiratory effort. CARDIAC: Normal rate. Normal rhythm. No murmurs. No rubs. Extremities warm and well perfused. Pulses equal. No JVD. GI: Soft, non-distended. mild lower tenderness to palpation. No rebound or guarding. No masses. RECTAL: Deferred. MUSCULOSKELETAL: Atraumatic. Chest examination reveals no tenderness. The back is symmetrical on inspection without obvious abnormality. There is no CVA tenderness to palpation. No joint edema. LOWER EXTREMITIES: Calves are equal size bilaterally and non-tender. No edema. No discoloration. NEURO: Normal sensorium. No sensory or motor deficits noted. SKIN: No rash or jaundice noted. ED COURSE: [Critical Care:] [None] Kraig Horta MD Past Med/Surg History Social History Preferred Language: Romanian Communication Ability: Effective Visual Impairment: No Limitations Hearing Ability: Normal Beliefs That Will Affect Care: None marital status: / Current Living Situation: Alone current occupational status: retired Feels Safe at Home: Yes Smoking Status: Current every day smoker Cigarettes Per Day: less than 1/2 pack per day ; Hx Alcohol Use: No Hx Substance Use: No Childhood Exposure to Second-Hand Smoke: No during the past year weight has: increased > 10 lbs Dental Care, Regularly: Yes Physical Activity Frequency: Does not Exercise Seatbelt Use: always Sunscreen Use: Yes Allergies Allergies Allergy/AdvReac Type Severity Reaction Status Date / Time codeine AdvReac Intermediate STOMACH Verified 02/12/20 14:19 PAIN Home Meds Home Medications Medication Instructions Recorded Confirmed omeprazole 40 mg PO BID 02/12/20 02/12/20 Previous Rx's Medication Instructions Recorded metoprolol succinate 100 mg 100 mg PO DAILY #90 tab 10/31/19 tablet,extended release 24 hr amlodipine 10 mg tablet 10 mg PO DAILY #90 tab 11/10/19 potassium chloride 20 mEq 20 meq PO BID #180 tab 12/25/19 tablet,extended release atorvastatin 10 mg tablet 10 mg PO DAILY #90 tab 01/02/20 loratadine 10 mg capsule 10 mg PO DAILY #90 cap 01/02/20 losartan 100 1 tab PO DAILY #90 tab 01/02/20 mg-hydrochlorothiazide 25 mg tablet famotidine 40 mg tablet 20 mg PO BID #135 tab 01/10/20 Results & Data (ED) Vital Signs Vital Signs - 24 hr 02/12/20 13:42 02/12/20 15:13 02/12/20 15:14 Temperature 36.4 C L Temperature Source Oral Pulse Rate 89 71 Pulse Rate [Finger] 71 Pulse Rate from SpO2 Sensor 70 Respiratory Rate 18 15 20 Respiratory Effort / Characteristics Non-Labored Spontaneous Non-Labored Spontaneous Respiratory Depth Normal Normal Respiratory Pattern Regular Blood Pressure 158/82 H 169/61 H Blood Pressure [Right Arm] 169/61 H Blood Pressure Mean 107 89 Blood Pressure Mean [Right Arm] 97 Blood Pressure Position Sitting Pulse Oximetry 94 93 95 Oxygen Delivery Method Room Air Room Air Room Air Sepsis Recent Fever Within 48 Hours No Sepsis New/Unexplained Change in Mental Status No Sepsis Action Taken by Nursing No Action Required 02/12/20 15:16 02/12/20 15:20 02/12/20 15:30 Temperature Temperature Source Pulse Rate 68 73 71 Pulse Rate [Finger] Pulse Rate from SpO2 Sensor 68 72 Respiratory Rate 21 30 H 14 Respiratory Effort / Characteristics Respiratory Depth Respiratory Pattern Blood Pressure Blood Pressure [Right Arm] Blood Pressure Mean Blood Pressure Mean [Right Arm] Blood Pressure Position Pulse Oximetry 94 93 Oxygen Delivery Method Room Air Room Air Room Air Sepsis Recent Fever Within 48 Hours Sepsis New/Unexplained Change in Mental Status Sepsis Action Taken by Nursing 02/12/20 15:31 02/12/20 15:40 02/12/20 15:50 Temperature Temperature Source Pulse Rate 72 67 70 Pulse Rate [Finger] Pulse Rate from SpO2 Sensor 66 71 Respiratory Rate 19 19 12 Respiratory Effort / Characteristics Respiratory Depth Respiratory Pattern Blood Pressure 177/58 H Blood Pressure [Right Arm] Blood Pressure Mean 95 Blood Pressure Mean [Right Arm] Blood Pressure Position Pulse Oximetry 93 94 Oxygen Delivery Method Room Air Room Air Room Air Sepsis Recent Fever Within 48 Hours Sepsis New/Unexplained Change in Mental Status Sepsis Action Taken by Nursing 02/12/20 17:00 02/12/20 18:49 Temperature Temperature Source Pulse Rate Pulse Rate [Finger] 74 74 Pulse Rate from SpO2 Sensor Respiratory Rate 20 20 Respiratory Effort / Characteristics Respiratory Depth Respiratory Pattern Blood Pressure Blood Pressure [Right Arm] 154/78 H 137/71 Blood Pressure Mean Blood Pressure Mean [Right Arm] 103 93 Blood Pressure Position Pulse Oximetry 95 98 Oxygen Delivery Method Room Air Room Air Sepsis Recent Fever Within 48 Hours Sepsis New/Unexplained Change in Mental Status Sepsis Action Taken by Nursing Laboratory Data Result diagrams: 02/12/20 14:57 02/12/20 14:20 Lab Results 02/12/20 02/12/20 02/12/20 Range/Units 14:20 14:20 14:20 WBC Cancelled RBC Cancelled Hgb Cancelled Hct Cancelled MCV Cancelled MCH Cancelled MCHC Cancelled RDW Std Deviation Cancelled RDW Coeff of [place] Cancelled Plt Count Cancelled MPV Cancelled Immature Gran % (Auto) Cancelled Neut % (Auto) Cancelled Lymph % (Auto) Cancelled Butts % (Auto) Cancelled Eos % (Auto) Cancelled Baso % (Auto) Cancelled Neut # (Auto) Cancelled Lymph # (Auto) Cancelled Butts # (Auto) Cancelled Eos # (Auto) Cancelled Baso # (Auto) Cancelled Immature Gran # (Auto) Cancelled Absolute Nucleated RBC Cancelled Nucleated RBC % (auto) Cancelled Neutrophils % (Manual) Cancelled Band Neutrophils % Cancelled Lymphocytes % (Manual) Cancelled Prolymphocyte % Cancelled Reactive Lymphs % (Man) Cancelled Monocytes % (Manual) Cancelled Eosinophils % (Manual) Cancelled Basophils % (Manual) Cancelled Metamyelocytes % (Man) Cancelled Myelocytes % (Man) Cancelled Promyelocytes % (Man) Cancelled Blast Cells % (Manual) Cancelled Plasma Cell % (Manual) Cancelled Other Cells % Cancelled Nucleated RBC % Cancelled Neutrophils # (Manual) Cancelled Band Neutrophils # Cancelled Total Absolute Neuts Cancelled Lymphocytes # (Manual) Cancelled Prolymphocyte # Cancelled Reactive Lymphs # Cancelled Total Abs Lymphocytes Cancelled Monocytes # (Manual) Cancelled Eosinophils # (Manual) Cancelled Basophils # (Manual) Cancelled Metamyelocytes # (Man) Cancelled Myelocytes # (Manual) Cancelled Promyelocytes # (Man) Cancelled Blast Cells # (Man) Cancelled Plasma Cell # (Manual) Cancelled Other Cells # Cancelled Nucleated RBCs # (Man) Cancelled Hypersegmented Neuts Cancelled Hyposegmented Neuts Cancelled Hypogranular Neuts Cancelled Large Granular Lymphs Cancelled # Lrg Granular Lymphs Cancelled Hairy Cells Cancelled Smudge Cells Cancelled Toxic Granulation Cancelled Toxic Vacuolation Cancelled Dohle Bodies Cancelled Bridgette Rods Cancelled Platelet Estimate Cancelled Hypogranular Platelets Cancelled Clumped Platelets Cancelled Giant Platelets Cancelled Platelet Satelliting Cancelled RBC Morphology Cancelled Polychromasia Cancelled Hypochromasia Cancelled Poikilocytosis Cancelled Basophilic Stippling Cancelled Anisocytosis Cancelled Microcytosis Cancelled Macrocytosis Cancelled Spherocytes Cancelled Pappenheimer Bodies Cancelled Sickle Cells Cancelled Target Cells Cancelled Tear Drop Cells Cancelled Ovalocytes Cancelled Stomatocytes Cancelled Santana-[place] Bodies Cancelled Echinocytes Cancelled Acanthocytes (Spur) Cancelled Rouleaux Cancelled RBC Agglutinates Cancelled Schistocytes Cancelled RBC Morph Comment Cancelled Sezary Cell Cancelled Sodium 138 (136-145) mmol/L Potassium 2.7 L (3.5-5.1) mmol/L Chloride 97 L (98-107) mmol/L Carbon Dioxide 33 H (21-32) mmol/L Anion Gap 8.0 (3-11) BUN 21 H (7-18) mg/dl Creatinine 0.73 (0.6-1.2) mg/dl Est Cr Clr Drug Dosing 60.8 ml/min Est GFR ( Amer) 94.0 Est GFR (Non-Af Amer) 81.1 BUN/Creatinine Ratio 28.1 H (10-20) Glucose 121 H (70-99) mg/dl Calcium 9.5 (8.5-10.1) mg/dl Total Bilirubin 0.9 (0.2-1) mg/dl AST 14 L (15-37) U/L ALT 13 (12-78) U/L Alkaline Phosphatase 98 (45-117) U/L Total Protein 7.7 (6.4-8.2) gm/dl Albumin 3.8 (3.4-5.0) gm/dl Globulin 3.9 (2.5-4.0) gm/dl Albumin/Globulin Ratio 1.0 (0.9-2) Lipase 86 (73-393) U/L Urine Color Dark Yellow Urine Appearance Cloudy A (Clear) Urine pH 6.0 (4.5-7.5) Ur Specific [place] 1.024 (1.000-1.030) Urine Protein 2+ H (Negative) Urine Glucose (UA) Negative (Negative) Urine Ketones Trace H (Negative) Urine Blood Negative (Negative) Urine Nitrite Negative (Negative) Urine Bilirubin Negative (Negative) Urine Urobilinogen Negative (Negative) Ur Leukocyte Esterase 1+ H (Negative) Urine WBC (Auto) 10-30 H (0-5) /hpf Urine RBC (Auto) 0-4 (0-4) /hpf U Hyaline Cast (Auto) 10-30 H (0-5) /lpf U Epithel Cells (Auto) >30 H (0-5) /lpf Urine Bacteria (Auto) Negative (Negative) Ur Renal Epithelial Cell Not Reportable 02/12/20 Range/Units 14:57 WBC 14.73 H RBC 4.82 Hgb 14.6 Hct 44.3 MCV 91.9 MCH 30.3 MCHC 33.0 RDW Std Deviation 46.0 RDW Coeff of Remedios 13.5 Plt Count 288 MPV 11.8 H Immature Gran % (Auto) 0.3 Neut % (Auto) 73.6 Lymph % (Auto) 18.7 Butts % (Auto) 6.7 Eos % (Auto) 0.5 Baso % (Auto) 0.2 Neut # (Auto) 10.84 H Lymph # (Auto) 2.76 Butts # (Auto) 0.98 H Eos # (Auto) 0.07 Baso # (Auto) 0.03 Immature Gran # (Auto) 0.05 H Absolute Nucleated RBC Nucleated RBC % (auto) Neutrophils % (Manual) Band Neutrophils % Lymphocytes % (Manual) Prolymphocyte % Reactive Lymphs % (Man) Monocytes % (Manual) Eosinophils % (Manual) Basophils % (Manual) Metamyelocytes % (Man) Myelocytes % (Man) Promyelocytes % (Man) Blast Cells % (Manual) Plasma Cell % (Manual) Other Cells % Nucleated RBC % Neutrophils # (Manual) Band Neutrophils # Total Absolute Neuts Lymphocytes # (Manual) Prolymphocyte # Reactive Lymphs # Total Abs Lymphocytes Monocytes # (Manual) Eosinophils # (Manual) Basophils # (Manual) Metamyelocytes # (Man) Myelocytes # (Manual) Promyelocytes # (Man) Blast Cells # (Man) Plasma Cell # (Manual) Other Cells # Nucleated RBCs # (Man) Hypersegmented Neuts Hyposegmented Neuts Hypogranular Neuts Large Granular Lymphs # Lrg Granular Lymphs Hairy Cells Smudge Cells Toxic Granulation Toxic Vacuolation Dohle Bodies Bridgette Rods Platelet Estimate Hypogranular Platelets Clumped Platelets Giant Platelets Platelet Satelliting RBC Morphology Polychromasia Hypochromasia Poikilocytosis Basophilic Stippling Anisocytosis Microcytosis Macrocytosis Spherocytes Pappenheimer Bodies Sickle Cells Target Cells Tear Drop Cells Ovalocytes Stomatocytes Santana-[place] Bodies Echinocytes Acanthocytes (Spur) Rouleaux RBC Agglutinates Schistocytes RBC Morph Comment Sezary Cell Sodium (136-145) mmol/L Potassium (3.5-5.1) mmol/L Chloride (98-107) mmol/L Carbon Dioxide (21-32) mmol/L Anion Gap (3-11) BUN (7-18) mg/dl Creatinine (0.6-1.2) mg/dl Est Cr Clr Drug Dosing ml/min Est GFR ( Amer) Est GFR (Non-Af Amer) BUN/Creatinine Ratio (10-20) Glucose (70-99) mg/dl Calcium (8.5-10.1) mg/dl Total Bilirubin (0.2-1) mg/dl AST (15-37) U/L ALT (12-78) U/L Alkaline Phosphatase (45-117) U/L Total Protein (6.4-8.2) gm/dl Albumin (3.4-5.0) gm/dl Globulin (2.5-4.0) gm/dl Albumin/Globulin Ratio (0.9-2) Lipase (73-393) U/L Urine Color Urine Appearance (Clear) Urine pH (4.5-7.5) Ur Specific [place] (1.000-1.030) Urine Protein (Negative) Urine Glucose (UA) (Negative) Urine Ketones (Negative) Urine Blood (Negative) Urine Nitrite (Negative) Urine Bilirubin (Negative) Urine Urobilinogen (Negative) Ur Leukocyte Esterase (Negative) Urine WBC (Auto) (0-5) /hpf Urine RBC (Auto) (0-4) /hpf U Hyaline Cast (Auto) (0-5) /lpf U Epithel Cells (Auto) (0-5) /lpf Urine Bacteria (Auto) (Negative) Ur Renal Epithelial Cell Administered Medications Sodium Chloride (Nss 1000ml) 1,000 mls @ 125 mls/hr IV .Q8H STA Stop: 02/12/20 21:49 Last Admin: 02/12/20 15:15 Dose: 125 mls/hr Documented by: [id number] Ioversol (Optiray 320 100ml) 93 ml IV ONCE PRN PRN Reason: Interaction Checking Stop: 02/16/20 17:13 Last Admin: 02/12/20 17:14 Dose: 93 ml Documented by: [id number] Discontinued Medications Potassium Chloride (K Saroj / Wtr) 10 meq in 100 mls @ 100 mls/hr IV ONE ONE Stop: 02/12/20 19:53 Last Infusion: 02/12/20 20:33 Dose: 0 mls/hr Documented by: [id number] Admin: 02/12/20 19:27 Dose: 100 mls/hr Documented by: [id number] Potassium Chloride (Klor-Con M20) 40 meq PO NOW STA Stop: 02/12/20 18:55 Last Admin: 02/12/20 19:27 Dose: 40 meq Documented by: [id number] Discharge Plan Visit Data Chief Complaint: Abdominal Pain Stated Complaint: ABDOMINAL PAIN UNABLE TO EAT ED Provider: Kraig Horta Discharge Problem: Abdominal pain, lower, Leukocytosis, Low back pain Forms Stand Alone Forms: My [facility] [place] [employer] Prescriptions Prescriptions: No Action metoprolol succinate 100 mg tablet extended release 24 hr 100 mg PO DAILY Qty: 90 RF: 1 amlodipine 10 mg tablet 10 mg PO DAILY Qty: 90 RF: 1 potassium chloride 20 mEq tablet extended release 20 meq PO BID Qty: 180 RF: 1 famotidine 40 mg tablet 20 mg PO BID Qty: 135 RF: 1 loratadine 10 mg capsule 10 mg PO DAILY Qty: 90 RF: 1 losartan-hydrochlorothiazide 100-25 mg tablet 1 tab PO DAILY Qty: 90 RF: 3 atorvastatin 10 mg tablet 10 mg PO DAILY Qty: 90 RF: 3 omeprazole 20 mg capsule,delayed release(DR/EC) 40 mg PO BID RF: 0
[2020-02-12 14:47] LABS: Appearance Urine Cloudy (Clear); Bacteria Urine Automated Negative (Negative); Blood Urine Negative (Negative); Color Urine Dark Yellow; Epithelial Cell Urine Auto >30 /lpf (0-5); Glucose Urine UA Negative (Negative); Ketones Urine Trace (Negative); Leukocyte Esterase Urine 1+ (Negative); Nitrite Urine Negative (Negative); Protein Urine 2+ (Negative); RBC Urine Automated 0-4 /hpf (0-4); Specific Gravity Urine 1.024 (1.000-1.030); Urobilinogen Urine Negative (Negative)
[2020-02-12 14:55] LABS: Potassium 2.7 mmol/L (3.5-5.1)
[2020-02-12 14:56] LABS: Albumin Level 3.8 gm/dl (3.4-5.0); BUN Creatinine Ratio 28.1 (10-20); Calcium 9.5 mg/dl (8.5-10.1); Creatinine Clr Calc Pharmacy 60.8 ml/min; Est GFR (Non-African American) 81.1
[2020-02-12 14:58] LABS: Bilirubin,Total 0.9 mg/dl (0.2-1); Globulin 3.9 gm/dl (2.5-4.0); Total Protein 7.7 gm/dl (6.4-8.2)
[2020-02-12 14:59] LABS: Bilirubin Urine Negative (Negative); Ictotest Urine Negative (Negative)
[2020-02-12 15:43] LABS: Basophils # (auto) 0.03 K/uL (0-0.2); Basophils % (auto) 0.2 %; Eosinophils # (auto) 0.07 K/uL (0-0.5); Eosinophils % (auto) 0.5 %; Hematocrit (blood only) 44.3 % (37-47); Hemoglobin 14.6 g/dL (12.0-16.0); Immature Granulocytes # (auto) 0.05 K/uL (0.00-0.02); Immature Granulocytes % (auto) 0.3 %; Lymphocytes # (auto) 2.76 K/uL (1.2-3.4); Lymphocytes % (auto) 18.7 %; Mean Corpuscular Hemoglobin 30.3 pg (25-34); Mean Corpuscular Volume 91.9 fL (80-100); Mean Platelet Volume 11.8 fL (7.4-10.4); Monocytes # (auto) 0.98 K/uL (0.11-0.59); Monocytes % (auto) 6.7 %; Neutrophils # (auto) 10.84 K/uL (1.4-6.5); Neutrophils % (auto) 73.6 %; Platelet Count 288 K/uL (130-400); RDW Coefficient of Variation 13.5 % (11.5-14.5); Red Blood Count 4.82 M/uL (4.2-5.4); White Blood Count 14.73 K/uL (4.8-10.8)
[2020-02-12] MEDS ORDERED: IOVERSOL 100ml IV PRN (17:14)
--- NOTE | 2020-02-12 17:31 | CT Scan Report ---
CT abd pelvis oral and IV con CT DOSE: 272.90 mGy.cm HISTORY: Pain. Weight loss. lower abd pain, wt loss TECHNIQUE: Multiaxial CT images of the abdomen and pelvis were performed following the use of intrave nous and oral contrast. A dose lowering technique was utilized adhering to the principles of ALARA. COMPARISON STUDY: 08/25/2017 FINDINGS: Lung bases are clear. Prior cholecystectomy. Liver spleen and pancreas are unremarkable. Mild biliary ductal prominence on a postoperative basis. This is unchanged. The bowel pattern is nonobstructive. The bladder is midline. No free fluid within the pelvic cul-de-sac. Mild scattered colonic diverticuli. No evidence for diverticulitis. IMPRESSION: No acute process of the abdomen or pelvis post cholecystectomy. ACT 112: Negative or not required by law. The above report was generated using voice recognition software. It may contain grammatical, syntax or spelling errors. Electronically signed by: Jamie Balderas M.D. 02/12/2020 5:29 PM
[2020-02-12] MEDS ORDERED: POTASSIUM CHLORIDE / WTR 10 MEQ/100 ML PLCT IV ONE (18:54)
[2020-02-12] MEDS ORDERED: POTASSIUM CHLORIDE 20 MEQ TABCR PO STA (18:54)
[2020-02-12] MEDS ORDERED: GADOBUTROL 65ML VIAL IV PRN (22:01)
--- NOTE | 2020-02-13 01:37 | History & Physical Report ---
Date of Service February 13, 2020 Assessment & Plan Admission and Anticipated Discharge Date Admission Date: 74 yo F w/ pMHx. of HTN, reflux, depression, leukocytosis, and low back pain presenting with abdominal pain and diarrhea that started after initiation of abx. for UTI. Abdominal pain w/ diarrhea after recent abx. could be due to C. diff. vs. viral infection given grandchild in preschool - CT A/P: no acute process - regular diet for now - continue with supportive care Leukocytosis of unclear etiology - no current urinary symptoms - could be related to abdominal pain and diarrhea if secondary to inflammation, could also be related to GI infection w/ C. diff or other viral or bacterial GI infection - C. diff. ordered - stool cultures ordered - continue to follow w/ AM CBC Back pain could be related to foraminal compression - not currently having back pain - MRI L spine: w/ chronic changes on statrad read, f/u final read - may be an indication for outpatient follow up, could be evaluated for possible injections Hypokalemia likely 2/2 poor oral intake related to abdominal pain - 2.7 in the ED, repleted w/ IV and oral - AM BMP - continue to monitor and replete weight loss, could be related to her diarrhea and decreased intake - 3 kg over 10 days per chart, 15 lbs over 2 weeks per pt. Diet: regular History of Present Illness Chief Complaint: abdominal pain Primary Care Provider: Jamila Moncada DO Klaudia Schultz is a 74 yo F w/ PMHx. of HTN, reflux, depression, low back pain and leukocytosis. She has been having abdominal pain for the last couple weeks. The pain is associated with gas and cramps. She has had diarrhea w/ 2 wet bowel movement in the last 24 hours. Her bowel movements have not had blood or mucus in them. One month prior she had a bladder infection and took a week of antibiotics after which the diarrhea developed. She has not had any other recent illness. She has lower back pain that is bilateral and goes down her right leg. She describes it as sciatic pain. She feels it is worse when she is sitting down. She does not have any current pain. She has had a persistent leukocytosis that was being worked up in the outpatient setting but as of yet has no clear etiology. She has hypokalemia, she was not taking her PM K supplements sometimes, but would then take the medication in the morning if she missed the evening dose. She has not had a colonoscopy ever, or any type of colon cancer screening. Social: - tobacco use: 2 cigarettes a day for approx. 50 years, no ETOH, or recreational drug use. - her son lives behind her house and is a phlebotomist prn Allergies Allergy/AdvReac Type Severity Reaction Status Date / Time codeine AdvReac Intermediate STOMACH Verified 02/12/20 14:19 PAIN Home Medications Home Medications Medication Instructions Recorded Confirmed Type metoprolol succinate 100 mg 100 mg PO DAILY #90 tab 10/31/19 02/12/20 Rx tablet,extended release 24 hr amlodipine 10 mg tablet 10 mg PO DAILY #90 tab 11/10/19 02/12/20 Rx potassium chloride 20 mEq 20 meq PO BID #180 tab 12/25/19 02/12/20 Rx tablet,extended release atorvastatin 10 mg tablet 10 mg PO DAILY #90 tab 01/02/20 02/12/20 Rx loratadine 10 mg capsule 10 mg PO DAILY #90 cap 01/02/20 02/12/20 Rx losartan 100 1 tab PO DAILY #90 tab 01/02/20 02/12/20 Rx mg-hydrochlorothiazide 25 mg tablet famotidine 40 mg tablet 20 mg PO BID #135 tab 01/10/20 02/12/20 Rx omeprazole 40 mg PO BID 02/12/20 02/12/20 History Past Med/Surg History Medical History Acid reflux Allergic rhinitis Anxiety Depression Gallbladder hydrops Hearing loss, bilateral Hematuria, microscopic History of carotid artery stenosis Hypertension Left carotid artery stenosis Pulmonary nodule Renal cyst, acquired Subclavian artery stenosis Surgical History S/P carotid endarterectomy (12/15/17) L sided Status post laparoscopic cholecystectomy (09/13/17) Family History Mother Hepatic cirrhosis Social History Preferred Language: [place] Communication Ability: Effective Visual Impairment: No Limitations Hearing Ability: Normal Model Technician Required: No Beliefs That Will Affect Care: None marital status: / Current Living Situation: Alone current occupational status: retired Feels Safe at Home: Yes Smoking Status: Light tobacco smoker Tobacco Type: cigarettes ; Cigarettes Per Day: 2 ; Hx Alcohol Use: No Hx Substance Use: No Childhood Exposure to Second-Hand Smoke: No during the past year weight has: increased > 10 lbs Dental Care, Regularly: Yes Physical Activity Frequency: Does not Exercise Seatbelt Use: always Sunscreen Use: Yes Review of Systems Review of Systems: Constitutional: denies fevers, chills, vomiting, fatigue, night sweats admits weight loss with 15 lbs in the last 2 weeks Head: denies trauma, LOC, headache, changes in vision Neurologic: denies syncope, slurring of speech, focal weakness, numbness or tingling in the lower extremity ENT: denies stuffiness, sneezing, allergy symptoms Cardiac: denies chest pain, or palpitations, leg edema Pulm: denies cough, shortness of breath, sputum production GI: denies indigestion, bowel change : denies urinary urgency, dysuria, or frequency Physical Exam Constitutional: WD/WN, vitals as above Eyes: PERRL, conjunctivae normal, anicteric sclerae Neck: normal visual inspection Respiratory: normal respiratory effort, lungs clear to auscultation Cardiovascular: RRR, no murmur, no edema Gastrointestinal (Abdomen): normal bowel sounds, soft, nontender, no hepatosplenomegaly Psychiatric: Orientation: alert Affect: euthymic affect Results & Data Results & Data ([facility]) Vital Signs (Past 12 Hours) Vital Signs Temp Pulse Pulse Resp BP BP Pulse Ox 02/13/20 01:02 79 14 105/71 93 02/13/20 00:30 71 15 131/99 94 02/12/20 23:30 70 23 150/68 H 95 02/12/20 23:00 71 14 144/46 H 93 02/12/20 22:31 81 14 123/74 95 02/12/20 22:18 80 18 152/53 H 96 02/12/20 22:17 32 H 02/12/20 21:10 69 22 93 02/12/20 21:01 64 16 154/65 H 95 02/12/20 21:00 69 16 94 02/12/20 20:50 66 20 95 02/12/20 20:40 66 14 02/12/20 20:31 69 21 149/84 H 02/12/20 20:30 68 21 02/12/20 20:20 69 17 02/12/20 20:10 68 16 02/12/20 20:02 72 19 123/85 02/12/20 20:00 70 21 02/12/20 19:50 65 16 02/12/20 19:40 68 17 02/12/20 19:30 75 19 165/134 H 02/12/20 19:20 69 16 02/12/20 19:10 72 17 97 02/12/20 19:00 90 16 151/80 H 96 02/12/20 18:50 73 21 91 02/12/20 18:49 74 74 25 H 137/71 137/71 98 02/12/20 17:00 74 20 154/78 H 95 02/12/20 15:50 70 12 94 02/12/20 15:40 67 19 93 02/12/20 15:31 72 19 177/58 H 02/12/20 15:30 71 14 02/12/20 15:20 73 30 H 93 02/12/20 15:16 68 21 94 02/12/20 15:14 71 20 169/61 H 95 02/12/20 15:13 71 15 169/61 H 93 02/12/20 13:42 36.4 C L 89 18 158/82 H 94 CBC Results Results Complete Blood Count Results: RBC 4.42 M/uL (4.2-5.4) 02/13/20 WBC 10.46 K/uL (4.8-10.8) 02/13/20 Hgb 13.3 g/dL (12.0-16.0) 02/13/20 Hct 40.5 % (37-47) 02/13/20 Plt Count 242 K/uL (130-400) 02/13/20 Chemistry (BMP) Results BMP Results: Sodium 139 mmol/L (136-145) 02/14/20 Potassium 3.4 mmol/L (3.5-5.1) L 02/14/20 Chloride 105 mmol/L (98-107) 02/14/20 BUN 15 mg/dl (7-18) 02/14/20 Creatinine 0.65 mg/dl (0.6-1.2) 02/14/20 Glucose 109 mg/dl (70-99) H 02/14/20 Supervising Physician Co-Signing Physician Notes Attending addendum: I have physically seen this patient, have supervised the medical residents activities, and agree with the H&P unless as otherwise noted. Assessment and Plan: Abdominal pain with diarrhea- Main differential including C. difficile to recent use of antibiotics, viral process associated with child in preschool age, bacterial infection. CT abdomen pelvis shows no acute process Follow stool studies. Back pain- MRI lumbar spine without acute process May look to PT/OT Hypokalemia-- 2.7 upon admission. Replace both orally and IV Repeat BMP in the a.m. Remainder of orders and notations as noted Resident Activity Tracking Resident Involvement: Resident Care Provided Care Provided: Adult Hospital Medicine
[2020-02-13] MEDS ORDERED: POLYETHYLENE (MIRALAX) 17 GM PACK PO PRN (01:42)
[2020-02-13] MEDS ORDERED: ONDANSETRON INJ 2 MG/ML 2 ML VIAL IV PRN (01:42)
[2020-02-13] MEDS ORDERED: ACETAMINOPHEN 325 MG TAB PO PRN (01:42)
[2020-02-13] MEDS ORDERED: ALUMINUM/MAGNESIUM SUSP 30 ML UDC PO PRN (01:42)
[2020-02-13 06:05] LABS: Basophils # (auto) 0.03 K/uL (0-0.2); Basophils % (auto) 0.3 %; Eosinophils # (auto) 0.13 K/uL (0-0.5); Eosinophils % (auto) 1.2 %; Hematocrit (blood only) 40.5 % (37-47); Hemoglobin 13.3 g/dL (12.0-16.0); Immature Granulocytes # (auto) 0.04 K/uL (0.00-0.02); Immature Granulocytes % (auto) 0.4 %; Lymphocytes # (auto) 3.23 K/uL (1.2-3.4); Lymphocytes % (auto) 30.9 %; Mean Corpuscular Hemoglobin 30.1 pg (25-34); Mean Corpuscular Hgb Conc 32.8 g/dL (32-36); Mean Corpuscular Volume 91.6 fL (80-100); Mean Platelet Volume 11.5 fL (7.4-10.4); Monocytes # (auto) 0.98 K/uL (0.11-0.59); Monocytes % (auto) 9.4 %; Neutrophils # (auto) 6.05 K/uL (1.4-6.5); Neutrophils % (auto) 57.8 %; Platelet Count 242 K/uL (130-400); RDW Coefficient of Variation 13.6 % (11.5-14.5); RDW Standard Deviation 45.8 fL (36.4-46.3); Red Blood Count 4.42 M/uL (4.2-5.4); White Blood Count 10.46 K/uL (4.8-10.8)
[2020-02-13 06:43] LABS: BUN Creatinine Ratio 33.9 (10-20); Calcium 8.7 mg/dl (8.5-10.1); Creatinine Clr Calc Pharmacy 100.9 ml/min; Est GFR (African American) 115.3; Est GFR (Non-African American) 99.4; Potassium 3.2 mmol/L (3.5-5.1)
--- NOTE | 2020-02-13 08:30 | Magnetic Resonance Report ---
LUMBAR SPINE MRI WITH AND WITHOUT CONTRAST HISTORY: low back pain, elevated TECHNIQUE: Multiplanar multisequence MRI of the lumbar spine was performed both before and after the intravenous administration of contrast. COMPARISON: None. FINDINGS: For the purpose of the report the L5-S1 disc space will be located on axial image 27 of 30. Suboptimal study due to the motion artifact. This is most pronounced on the postcontrast sequences. N o fracture or subluxation. Moderate to severe disc space narrowing at L5-S1. Mild disc space narrowin g throughout the remaining lumbar spine. [id number]-virpygcg facet degenerative changes most pronounced at the L4-L5 level. Paraspinal soft tissues are unremarkable. There is a 4 cm exophytic enhancing les ion within the lower pole the right kidney. This is consistent with a renal cell carcinoma. The conus terminates at the L2 level. No epidural or paraspinal abscess. L1-L2: No significant central canal or neural foraminal narrowing. L2-L3: Right paracentral focal disc protrusion with inferior subligamentous migration. This abuts and displaces the transiting right L3 nerve roots. This results in mild central canal and mild right-harini ed neural foraminal narrowing. L3-L4: There is a right paracentral disc extrusion demonstrating superior subligamentous migration. T his measures 9 mm and abuts and displaces the transiting right L4 nerve roots. This results in mild c entral canal and mild right-sided neural foraminal narrowing. There is also mild left-sided neural fo raminal narrowing due to a broad-based posterior disc bulge. L4-L5: Broad-based posterior disc bulge with a tiny focal central disc protrusion. No significant lila tral canal narrowing. There is mild bilateral neural foraminal narrowing. L5-S1: Broad-based posterior disc bulge with a small focal central disc protrusion. This abuts the tr ansiting right S1 nerve root. No significant central canal narrowing. There is mild to moderate bilat eral neural foraminal narrowing. IMPRESSION: 1. Right paracentral disc herniations at L2-L3 and L3-L4 which abut and displace the respective right L3 and L4 nerve roots. 2. Small focal central disc protrusion at L5-S1 which abuts the transiting right S1 nerve root. 3. A 4 cm exophytic enhancing lesion within the lower pole of the right kidney. This is consistent wi th a renal cell carcinoma. Nonemergent urology consultation recommended. 4. These findings were discussed with Dr. Cardona at 8:25 AM on 02/13/2020. ACT 112: Positive. There are findings on this exam that require communication between the performing entity and the patient following Patient Test Result Information Act ([place] Act 112) guidelines. Electronically signed by: Gomez Cesar M.D. 02/13/2020 8:28 AM
--- NOTE | 2020-02-13 08:40 | Emergency Department Note ---
ED Visit Note I received call this morning from radiology regarding the formal MRI read today. Admitting team was contacted and Dr. Alberto confirms they are aware of this report with incidental finding of renal cell carcinoma (below). LUMBAR SPINE MRI WITH AND WITHOUT CONTRAST HISTORY: low back pain, elevated TECHNIQUE: Multiplanar multisequence MRI of the lumbar spine was performed both before and after the intravenous administration of contrast. COMPARISON: None. FINDINGS: For the purpose of the report the L5-S1 disc space will be located on axial image 27 of 30. Suboptimal study due to the motion artifact. This is most pronounced on the postcontrast sequences. No fracture or subluxation. Moderate to severe disc space narrowing at L5-S1. Mild disc space narrowing throughout the remaining lumbar spine. Qxoe-kx-eltkufet facet degenerative changes most pronounced at the L4-L5 level. Paraspinal soft tissues are unremarkable. There is a 4 cm exophytic enhancing lesion within the lower pole the right kidney. This is consistent with a renal cell carcinoma. The conus terminates at the L2 level. No epidural or paraspinal abscess. L1-L2: No significant central canal or neural foraminal narrowing. L2-L3: Right paracentral focal disc protrusion with inferior subligamentous migration. This abuts and displaces the transiting right L3 nerve roots. This results in mild central canal and mild right-sided neural foraminal narrowing. L3-L4: There is a right paracentral disc extrusion demonstrating superior subligamentous migration. This measures 9 mm and abuts and displaces the transiting right L4 nerve roots. This results in mild central canal and mild right-sided neural foraminal narrowing. There is also mild left-sided neural foraminal narrowing due to a broad-based posterior disc bulge. L4-L5: Broad-based posterior disc bulge with a tiny focal central disc protrusion. No significant central canal narrowing. There is mild bilateral neural foraminal narrowing. L5-S1: Broad-based posterior disc bulge with a small focal central disc protrusion. This abuts the transiting right S1 nerve root. No significant central canal narrowing. There is mild to moderate bilateral neural foraminal narrowing. IMPRESSION: 1. Right paracentral disc herniations at L2-L3 and L3-L4 which abut and displace the respective right L3 and L4 nerve roots. 2. Small focal central disc protrusion at L5-S1 which abuts the transiting right S1 nerve root. 3. A 4 cm exophytic enhancing lesion within the lower pole of the right kidney. This is consistent with a renal cell carcinoma. Nonemergent urology consultation recommended. 4. These findings were discussed with Dr. Cardona at 8:25 AM on 02/13/2020. ACT 112: Positive. There are findings on this exam that require communication between the performing entity and the patient following Patient Test Result Information Act ([place] Act 112) guidelines. .
[2020-02-13] MEDS: POTASSIUM CHLORIDE 20 MEQ TABCR PO SCH ×2 (09:06→20:32)
[2020-02-13] MEDS: PANTOprazole 40 MG TAB PO SCH ×2 (09:07→20:32)
[2020-02-13] MEDS: FAMOTIDINE 20 MG TAB PO SCH ×2 (09:07→20:32)
[2020-02-13] MEDS: METOPROLOL SUCC 50MG EXT REL TAB PO SCH (09:07)
[2020-02-14] MEDS: FAMOTIDINE 20 MG TAB PO SCH (08:37)
[2020-02-14] MEDS: PANTOprazole 40 MG TAB PO SCH (08:37)
[2020-02-14] MEDS: POTASSIUM CHLORIDE 20 MEQ TABCR PO SCH (08:37)
[2020-02-14] MEDS: METOPROLOL SUCC 50MG EXT REL TAB PO SCH (08:38)
[2020-02-14 12:40] LABS: BUN Creatinine Ratio 22.5 (10-20); Calcium 8.5 mg/dl (8.5-10.1); Creatinine Clr Calc Pharmacy 68.3 ml/min; Est GFR (African American) 101.4; Est GFR (Non-African American) 87.5; Potassium 3.4 mmol/L (3.5-5.1)
--- NOTE | 2020-02-14 14:43 | Discharge Summary ---
Date of Service February 14, 2020 Admission HPI Per Admitting Provider Klaudia Schultz is a 74 yo F w/ PMHx. of HTN, reflux, depression, low back pain and leukocytosis. She has been having abdominal pain for the last couple weeks. The pain is associated with gas and cramps. She has had diarrhea w/ 2 wet bowel movement in the last 24 hours. Her bowel movements have not had blood or mucus in them. One month prior she had a bladder infection and took a week of antibiotics after which the diarrhea developed. She has not had any other recent illness. She has lower back pain that is bilateral and goes down her right leg. She describes it as sciatic pain. She feels it is worse when she is sitting down. She does not have any current pain. She has had a persistent leukocytosis that was being worked up in the outpatient setting but as of yet has no clear etiology. She has hypokalemia, she was not taking her PM K supplements sometimes, but would then take the medication in the morning if she missed the evening dose. She has not had a colonoscopy ever, or any type of colon cancer screening. Social: - tobacco use: 2 cigarettes a day for approx. 50 years, no ETOH, or recreational drug use. - her son lives behind her house and is a weight reduction specialist Principal Diagnosis Abdominal pain and diarrhea Discharge Exam Constitutional WD/WN, vitals as above Eyes PERRL, conjunctivae normal, anicteric sclerae ENMT external ear and nose normal, oropharynx normal Neck trachea midline, no thyromegaly Respiratory normal respiratory effort, lungs clear to auscultation Cardiovascular RRR, no murmur, no edema Gastrointestinal (Abdomen) normal bowel sounds, soft, nontender, no hepatosplenomegaly Musculoskeletal no cyanosis or clubbing, extremities motor strength 5/5 Skin no rashes, warm and dry Neurologic patellar DTR's 2+ bilat, sensation intact and PERRL, EOMI, accommodation nl, no face palsy, no dysarthria Psychiatric A+Ox3, euthymic affect Lymphatic no cervical or axillary lymphadenopathy Discharge Data Allergies Allergy/AdvReac Type Severity Reaction Status Date / Time codeine AdvReac Intermediate STOMACH Verified 02/12/20 14:19 PAIN Consultations 02/12/20 19:50 ED Decision to Admit Stat Ordered Studies 02/12/20 14:05 CT abd pelvis oral and IV con Stat 02/12/20 19:50 MR lumbar spine wo/w con Urgent Hospital Course (1) Diarrhea: C diff negative, no further diarrhea while here likely just a viral gastroenteritis that has run it's course diet advanced, tolerating well follow up with PCP as needed (2) Abdominal pain: no further pain, tolerating diet nothing on CT abdomen/pelvis that would suggest etiology for abdominal pain no infectious/inflammatory changes (3) Degenerative disc disease: MRI shows several levels of disease with disc herniation, compression or nerve roots she says she has had this for some time she admits to radiculopathy at times, down right leg relieved by sitting down told her that if there is ever a time that the pain is more frequent, more severe or does not go away that she can be referred to spine surgery (4) Renal lesion: incidental finding on MRI 4cm lesion right kidney concerning for renal cell carcinoma could not find any mention of renal lesion in her history referral made to [facility] [place] to see as outpatient, they will call her stressed the importance of patient going to this appointment, she said she would go Total Time Total Time Spent Total Time Spent (In Minutes): 32 Total Time Includes: Examination of the Patient, Discharge Planning and Medication Reconciliation Discharge Plan Discharge Items Patient Disposition: Home - Self-Care Reason For Visit: ABDOMINAL PAIN Discharge Diagnosis: Abdominal pain and diarrhea, resolved Lumbar disc herniation and spinal nerve impingement Incidental finding of right kidney Condition on Discharge: Good Goals: follow up with urology about kidney lesion follow up with Dr. Moncada about back pain Activity: Resume your previous activity Lifting: No more than 25 pounds Lifting Comment: avoid heavy lifting, avoid twisting, use your legs, do not bend at waist Bathing: No limitations Exercise/Sports: Gradually increase as tolerated Driving/Machine Use: No limitations Weightbearing: Full weightbearing Non-emergency contact: Primary Care Provider and Urologist Call non-emergency contact if: you have any medication questions and your symptoms worsen Follow-up/Referrals: [facility] Urology [Provider Group] (Please, follow up at [facility]. *A nurse from this office will call you with appointment information. The office is located at [address] in [place]. If you have any questions, call the office at [phone].) Jamila Moncada, DO [Primary Care Provider] - 02/20/20 3:00 pm (Please, follow up at [facility] [place] Office with Dr. Moncada's associate, Dr. Corie Whitley, on WednesdayFebruary 19 at 3:00 pm. *If you need to change this appointment, call the office at [phone].) Diet: Regular Addtl Attending Provider Instructions: Medications: no changes Abdominal pain and diarrhea likely just a viral gastroenteritis C difficile testing was negative no infectious or inflammatory changes seen on CT of the abdomen/pelvis recommend that you continue to advance diet as tolerated, follow up with Dr. Moncada Low back pain MRI shows central disc herniations at L2, L3, L4 with some pressure on L3 and L4 nerve roots also, small herniation at L5-S1 with some pressure on S1 nerve root chronic changes, nothing acute compared to prior films as we discussed, your pain is intermittent, gets better with sitting down if the pain gets more frequent, more severe, does not improve with positional changes then ask for referral to spine surgeon from Dr. Moncada for now, it is important to avoid heavy lifting, do not bend and twist, use legs to lift and do not bend at the waist Incidental finding of 4cm lesion on right kidney, exophytic, concerning for renal cell carcinoma as we discussed, I could not find mention of this on prior records non-urgent urology consult is recommended to review films, determine if further imaging or biopsy needed requested visit at [place] office but they are not doing this at this time due to staffing issues and COVID 19 only appointments are at the [place] office their office will call you with appointment, please make every effort to go to this visit as they are very busy and technically scheduled through July but are squeezing you in as this is important for you to follow up Pending Studies at Discharge: No Stand-Alone Forms: [facility], Smoking Cessation Medications and DC Order Prescriptions: Continued metoprolol succinate 100 mg tablet extended release 24 hr 100 mg PO DAILY Qty: 90 RF: 1 amlodipine 10 mg tablet 10 mg PO DAILY Qty: 90 RF: 1 potassium chloride 20 mEq tablet extended release 20 meq PO BID Qty: 180 RF: 1 famotidine 40 mg tablet 20 mg PO BID Qty: 135 RF: 1 loratadine 10 mg capsule 10 mg PO DAILY Qty: 90 RF: 1 losartan-hydrochlorothiazide 100-25 mg tablet 1 tab PO DAILY Qty: 90 RF: 3 atorvastatin 10 mg tablet 10 mg PO DAILY Qty: 90 RF: 3 omeprazole 20 mg capsule,delayed release(DR/EC) 40 mg PO BID RF: 0 Discharge Orders: Discharge Order (Routine); Ordered 02/14/20 Ordered By: Evan Sotomayor/Other Patient Handouts: Abdominal Pain Admission Data Admit Date/Time: 02/13/20 00:46 Attending Provider: Evan Alberto Admit Provider: Ramone Robles Primary Care Provider: Jamila Moncada Other Providers: Clint Barth Other Interventions: Discharge Summary Assessment (RN) Last Done: 02/14/20 12:03 DC Date/Time DO NOT enter until pt leaves facility: 02/14/20 13:49 Coding Level of Care Code 87963 OBS Care - Discharge Diagnoses Diarrhea R19.7 Abdominal pain R10.9 Degenerative disc disease Renal lesion N28.9
--- NOTE | 2020-02-15 01:00 | Billing Data ---
Date of Service February 15, 2020 Coding Level of Care Code 23822 Initial Inpt Care Lvl 2
== END 2020-02-14 13:49 | disposition home or self-care (01) ==
LOC: ED 13:36 → 3W 13:36 → SUATTDRO 02-13 00:46 → 3W 02-13 01:17

== ENCOUNTER 2022-06-21 22:36 | Observation (INO) ==
[2022-06-21 23:26] LABS: Basophils # (auto) 0.05 K/uL (0-0.2); Basophils % (auto) 0.6 %; Eosinophils % (auto) 1.1 %; Hematocrit (blood only) 43.7 % (34.1-44.9); Hemoglobin 14.3 g/dl (12.0-16.0); Immature Granulocytes # (auto) 0.08 K/uL (0.00-0.02); Immature Granulocytes % (auto) 0.9 %; Lymphocytes % (auto) 6.6 %; Mean Corpuscular Hemoglobin 28.6 pg (25.0-34.0); Mean Corpuscular Hgb Conc 32.7 g/dL (32.0-36.0); Mean Corpuscular Volume 87.4 fL (80.0-100.0); Mean Platelet Volume 11.1 fL (9.4-12.3); Monocytes # (auto) 0.99 K/uL (0.24-0.82); Monocytes % (auto) 10.9 %; Neutrophils # (auto) 7.24 K/uL (1.4-6.5); Neutrophils % (auto) 79.9 %; Platelet Count 223 K/uL (130-400); RDW Coefficient of Variation 16.1 % (11.5-14.5); RDW Standard Deviation 51.8 fL (36.4-46.3); White Blood Count 9.06 K/ul (4.8-10.8)
[2022-06-21 23:36] LABS: Prothrombin Time 10.5 Seconds (9.0-12.0)
[2022-06-21 23:52] LABS: Alanine Aminotransferase 12 U/L (7-52); Albumin Globulin Ratio 1.5 (0.9-2); Albumin Level 4.3 gm/dl (3.4-5.0); Alkaline Phosphatase 83 U/L (34-104); Anion Gap 8 (3-11); Aspartate Aminotransferase 17 U/L (13-39); Bilirubin,Total 0.6 mg/dl (0.2-1.0); Blood Urea Nitrogen 22 mg/dl (6-23); Calcium 9.2 mg/dl (8.5-10.1); Carbon Dioxide 27 mmol/L (21-32); Chloride 100 mmol/L (98-107); Est GFR (African American) 95.2 ml/min; Est GFR (Non-African American) 82.2 ml/min; Globulin 2.8 gm/dl (2.5-4.0); Glucose 117 mg/dl (70-99(Fasting)); Magnesium 1.9 mg/dl (1.7-2.4); Potassium 4.3 mmol/L (3.5-5.1); Sodium 135 mmol/L (136-145); Total Protein 7.1 gm/dl (6.0-8.3)
[2022-06-21 23:53] LABS: Troponin I High Sensitivity 8.8 pg/ml (0-14)
--- NOTE | 2022-06-22 00:06 | Emergency Department Note ---
History of Present Illness General Chief complaint: Weakness Stated complaint: WEAKNESS, LOSS OF BALANCE Time Seen by Provider: 06/21/22 23:33 History of Present Illness 77-year-old female presents emergency department with an onset of loss of balance at approximately 5 PM today while she was walking in the kitchen. Patient's son who was a former confidential investigator evaluated her for strokelike symptoms. Patient has had problems in the past with balance and its been related to electrolyte abnormality or urinary tract infection. Patient denies any slurred speech blurred vision weakness in the arms or legs. Patient states that the symptoms have currently resolved. Patient denies cough cold congestion denies chest pain abdominal pain recent infection or diarrhea. There are no other mitigating or alleviating factors Home Medications Medication Instructions Recorded Confirmed Type aspirin 81 mg tablet,delayed 81 mg PO QAM 04/25/20 06/22/22 History release (Kojo Low Dose Aspirin) acetaminophen 500 mg tablet 500 mg PO Q6H PRN Pain 10/17/20 06/22/22 History (Tylenol Extra Strength) amlodipine 10 mg tablet 10 mg PO QPM #90 tabs 12/26/21 06/22/22 Rx losartan 50 mg tablet 50 mg PO DAILY #90 tabs 12/26/21 06/22/22 Rx Cam walking shoe #1 ea 03/02/22 Rx clopidogrel 75 mg tablet (Plavix) 75 mg PO QAM #90 tabs 03/19/22 06/22/22 Rx potassium chloride 20 mEq 20 meq PO BID #180 tabs 05/15/22 06/22/22 Rx tablet,extended release metoprolol succinate 100 mg 100 mg PO QAM #90 tabs 06/02/22 06/22/22 Rx tablet,extended release 24 hr atorvastatin 80 mg tablet 80 mg PO QPM #90 tabs 06/11/22 06/22/22 Rx sertraline 100 mg tablet 100 mg PO DAILY #90 tabs 06/11/22 06/22/22 Rx Allergies Allergy/AdvReac Type Severity Reaction Status Date / Time codeine AdvReac Intermediate STOMACH Verified 06/22/22 00:08 PAIN Past Med/Surg History Medical History Acid reflux Allergic rhinitis Anxiety 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 03/01/2020. Peripheral arterial occlusive disease Prediabetes Pulmonary nodule Benign Renal cell cancer (09/2020) s/p R partial nephrectomy Subclavian artery stenosis Vitamin D deficiency Surgical History History of partial nephrectomy (10/02/20) R S/P arterial stent (02/2020) stent mesenteric artery, prox segment S/P carotid endarterectomy (12/15/17) L sided S/P hip replacement (07/07/21) 06/2021 right hip Status post laparoscopic cholecystectomy (09/13/17) Family History Mother Hepatic cirrhosis Diabetes Denies family history of Ovarian cancer Prostate cancer Myocardial infarction Breast cancer Colorectal cancer Social History Smoking Status: Former smoker Tobacco Type: Cigarettes Age Started Using Tobacco: 15; Age Quit Using Tobacco: 75; Second Hand Exposure: No; Hx Alcohol Use: No Hx Substance Use: No Preferred Language: Frisian Communication Ability: Effective Visual Impairment: No Limitations Hearing Ability: Normal Sisal Operator Required: No Beliefs That Will Affect Care: None marital status: / Current Living Situation: Alone current occupational status: retired How many Children do You have: 5 Feels Safe at Home: Yes Childhood Exposure to Second-Hand Smoke: No caffeine: Yes during the past year weight has: remained stable Dental Care, Regularly: Yes Physical Activity Frequency: Does not Exercise Seatbelt Use: always Sunscreen Use: No (stays out of sun) Assistive Devices: Glasses Review of Systems A total of 10 systems reviewed and were otherwise negative Constitutional: no fever Respiratory: no cough Cardiovascular: no chest pain Neurologic: + gait abnormality Physical Exam Vital Signs Vital Signs - 24 hr 06/21/22 22:38 06/21/22 23:24 06/21/22 23:57 Temperature 37.2 C Temperature Source Temporal Artery Scan Pulse Rate 87 73 84 Pulse Rate from SpO2 Sensor 69 86 Respiratory Rate 18 18 20 Respiratory Depth Normal Blood Pressure 133/92 Blood Pressure Mean 105 Pulse Oximetry 89 L 98 89 L Oxygen Delivery Method Room Air Oxygen Flow Rate Sepsis Recent Fever Within 48 Hours No Sepsis New/Unexplained Change in Mental Status N/A Sepsis Action Taken by Nursing No Action Required 06/22/22 00:00 06/22/22 00:02 06/22/22 00:02 Temperature Temperature Source Pulse Rate 83 81 Pulse Rate from SpO2 Sensor 82 80 Respiratory Rate 18 25 H Respiratory Depth Blood Pressure 122/67 Blood Pressure Mean 85 Pulse Oximetry 95 95 Oxygen Delivery Method Oxygen Flow Rate Sepsis Recent Fever Within 48 Hours Sepsis New/Unexplained Change in Mental Status Sepsis Action Taken by Nursing 06/22/22 00:10 06/22/22 00:20 06/22/22 00:30 Temperature Temperature Source Pulse Rate 75 73 72 Pulse Rate from SpO2 Sensor 73 73 74 Respiratory Rate 19 17 17 Respiratory Depth Blood Pressure Blood Pressure Mean Pulse Oximetry 89 L 91 96 Oxygen Delivery Method Oxygen Flow Rate Sepsis Recent Fever Within 48 Hours Sepsis New/Unexplained Change in Mental Status Sepsis Action Taken by Nursing 06/22/22 00:32 06/22/22 00:32 06/22/22 00:40 Temperature Temperature Source Pulse Rate 71 71 Pulse Rate from SpO2 Sensor 69 71 Respiratory Rate 19 18 Respiratory Depth Blood Pressure 142/79 H Blood Pressure Mean 100 Pulse Oximetry 97 97 Oxygen Delivery Method Oxygen Flow Rate Sepsis Recent Fever Within 48 Hours Sepsis New/Unexplained Change in Mental Status Sepsis Action Taken by Nursing 06/22/22 00:50 06/22/22 01:00 06/22/22 01:01 Temperature Temperature Source Pulse Rate 70 69 Pulse Rate from SpO2 Sensor 70 71 Respiratory Rate 21 18 Respiratory Depth Blood Pressure 164/66 H Blood Pressure Mean 98 Pulse Oximetry 96 97 Oxygen Delivery Method Oxygen Flow Rate Sepsis Recent Fever Within 48 Hours Sepsis New/Unexplained Change in Mental Status Sepsis Action Taken by Nursing 06/22/22 01:01 06/22/22 01:10 06/22/22 01:20 Temperature Temperature Source Pulse Rate 72 70 70 Pulse Rate from SpO2 Sensor 73 71 70 Respiratory Rate 16 20 18 Respiratory Depth Blood Pressure Blood Pressure Mean Pulse Oximetry 96 96 93 Oxygen Delivery Method Oxygen Flow Rate Sepsis Recent Fever Within 48 Hours Sepsis New/Unexplained Change in Mental Status Sepsis Action Taken by Nursing 06/22/22 01:30 06/22/22 00:37 06/22/22 02:00 Temperature Temperature Source Pulse Rate 73 Pulse Rate from SpO2 Sensor 73 Respiratory Rate 14 Respiratory Depth Blood Pressure Blood Pressure Mean Pulse Oximetry 98 Oxygen Delivery Method Nasal Cannula Nasal Cannula Oxygen Flow Rate 3 Sepsis Recent Fever Within 48 Hours Sepsis New/Unexplained Change in Mental Status Sepsis Action Taken by Nursing 06/22/22 01:31 06/22/22 01:31 06/22/22 02:00 Temperature Temperature Source Pulse Rate 73 71 Pulse Rate from SpO2 Sensor 73 70 Respiratory Rate 21 20 Respiratory Depth Blood Pressure 154/71 H Blood Pressure Mean 98 Pulse Oximetry 97 96 Oxygen Delivery Method Oxygen Flow Rate Sepsis Recent Fever Within 48 Hours Sepsis New/Unexplained Change in Mental Status Sepsis Action Taken by Nursing 06/22/22 02:01 06/22/22 02:01 Temperature Temperature Source Pulse Rate 72 Pulse Rate from SpO2 Sensor 73 Respiratory Rate 20 Respiratory Depth Blood Pressure 154/96 H Blood Pressure Mean 115 Pulse Oximetry 95 Oxygen Delivery Method Oxygen Flow Rate Sepsis Recent Fever Within 48 Hours Sepsis New/Unexplained Change in Mental Status Sepsis Action Taken by Nursing GENERAL: Patient is awake alert in no acute distress patient is resting com fortably and showing no signs of anxiety EYES: The conjunctivae are clear. The pupils are round and reactive. EARS, NOSE, MOUTH AND THROAT: The nose is without any evidence of any deformity. Mucous membranes are moist. Tongue is midline. NECK: The neck is nontender and supple. RESPIRATORY: Normal respiratory effort is noted there is no evidence of wheezing rhonchi or rales CARDIOVASCULAR: Regular rate and rhythm noted there no murmurs rubs or gallops normal S1 normal S2. GASTROINTESTINAL: The abdomen is soft. Abdomen is nontender. PELVIS: The Pelvis is stable. No tenderness to palpation is noted. BACK: No midline tenderness or or step-off noted range of motion in flexion extension as well as rotation no signs of muscle spasm noted MUSCULOSKELETAL/EXTREMITIES: There is no evidence of gross deformity full range of motion is noted in the hips and shoulders. SKIN: There is no obvious evidence of any rash. There are no petechiae, pallor or cyanosis noted. NEUROLOGIC: Patient is awake alert and oriented x3 strength is symmetric; NIH 0; GCS 15 Course Reevaluation(s) Reevaluation #1: Patient is resting in no distress on 2 L of oxygen. Patient is COVID-positive. Patient has no current symptoms and an NIH score of 0 Time: 04:00 Administered Medications Discontinued Medications Methylprednisolone (Methylprednisolone 125 Mg/2 Ml Vial) 125 mg IV NOW STA Stop: 06/22/22 01:34 Last Admin: 06/22/22 02:01 Dose: 125 mg Documented By: CHRISTINE Medical Decision Making Medical Records Attestation: I reviewed the patient's medical records. Home Medications Current Medication List: was personally reviewed by me Laboratory Data Attestation: I reviewed the patient's lab results. Result diagrams: 06/21/22 22:49 06/21/22 22:49 Lab Results 06/21/22 06/21/22 06/21/22 Range/Units 22:49 22:49 22:49 WBC 9.06 (4.8-10.8) K/ul RBC 5.00 (3.93-5.22) M/uL Hgb 14.3 (12.0-16.0) g/dl Hct 43.7 (34.1-44.9) % MCV 87.4 (80.0-100.0) fL MCH 28.6 (25.0-34.0) pg MCHC 32.7 (32.0-36.0) g/dL RDW Std Deviation 51.8 H (36.4-46.3) fL RDW Coeff of Remedios 16.1 H (11.5-14.5) % Plt Count 223 (130-400) K/uL MPV 11.1 (9.4-12.3) fL Immature Gran % (Auto) 0.9 % Neut % (Auto) 79.9 % Lymph % (Auto) 6.6 % [place] % (Auto) 10.9 % Eos % (Auto) 1.1 % Baso % (Auto) 0.6 % Neut # (Auto) 7.24 H (1.4-6.5) K/uL Lymph # (Auto) 0.60 L (1.2-3.4) K/uL [place] # (Auto) 0.99 H (0.24-0.82) K/uL Eos # (Auto) 0.10 (0-0.50) K/uL Baso # (Auto) 0.05 (0-0.2) K/uL Immature Gran # (Auto) 0.08 H (0.00-0.02) K/uL PT 10.5 (9.0-12.0) Seconds INR 1.0 (0.9-1.1) Sodium 135 L (136-145) mmol/L Potassium 4.3 (3.5-5.1) mmol/L Chloride 100 (98-107) mmol/L Carbon Dioxide 27 (21-32) mmol/L Anion Gap 8 (3-11) BUN 22 (6-23) mg/dl Creatinine 0.71 (0.6-1.2) mg/dl Est Cr Clr Drug Dosing Not Reportable Est GFR ( Amer) 95.2 ml/min Est GFR (Non-Af Amer) 82.2 ml/min BUN/Creatinine Ratio 31.0 H (10-20) Glucose 117 H (70-99(Fasting)) mg/dl Calcium 9.2 (8.5-10.1) mg/dl Magnesium 1.9 (1.7-2.4) mg/dl Total Bilirubin 0.6 (0.2-1.0) mg/dl AST 17 (13-39) U/L ALT 12 (7-52) U/L Alkaline Phosphatase 83 (34-104) U/L Troponin I High Sens 8.8 (0-14) pg/ml Total Protein 7.1 (6.0-8.3) gm/dl Albumin 4.3 (3.4-5.0) gm/dl Globulin 2.8 (2.5-4.0) gm/dl Albumin/Globulin Ratio 1.5 (0.9-2) Urine Color Urine Appearance (Clear) Urine pH (4.5-7.5) Ur Specific [place] (1.000-1.030) Urine Protein (Negative) Urine Glucose (UA) (Negative) Urine Ketones (Negative) Urine Blood (Negative) Urine Nitrite (Negative) Urine Bilirubin (Negative) Urine Urobilinogen (Negative) Ur Leukocyte Esterase (Negative) Urine WBC (Auto) (0-5) /hpf Urine RBC (Auto) (0-4) /hpf U Hyaline Cast (Auto) (0-5) /lpf U Epithel Cells (Auto) (0-5) /lpf Urine Bacteria (Auto) (Negative) SARS-CoV-2 (PCR) (Negative) Influenza Type A (PCR) (Neg) Influenza Type B (PCR) (Neg) RSV (RT-PCR) (Neg) 06/21/22 06/22/22 Range/Units 23:56 00:06 WBC (4.8-10.8) K/ul RBC (3.93-5.22) M/uL Hgb (12.0-16.0) g/dl Hct (34.1-44.9) % MCV (80.0-100.0) fL MCH (25.0-34.0) pg MCHC (32.0-36.0) g/dL RDW Std Deviation (36.4-46.3) fL RDW Coeff of Remedios (11.5-14.5) % Plt Count (130-400) K/uL MPV (9.4-12.3) fL Immature Gran % (Auto) % Neut % (Auto) % Lymph % (Auto) % [place] % (Auto) % Eos % (Auto) % Baso % (Auto) % Neut # (Auto) (1.4-6.5) K/uL Lymph # (Auto) (1.2-3.4) K/uL [place] # (Auto) (0.24-0.82) K/uL Eos # (Auto) (0-0.50) K/uL Baso # (Auto) (0-0.2) K/uL Immature Gran # (Auto) (0.00-0.02) K/uL PT (9.0-12.0) Seconds INR (0.9-1.1) Sodium (136-145) mmol/L Potassium (3.5-5.1) mmol/L Chloride (98-107) mmol/L Carbon Dioxide (21-32) mmol/L Anion Gap (3-11) BUN (6-23) mg/dl Creatinine (0.6-1.2) mg/dl Est Cr Clr Drug Dosing Est GFR ( Amer) ml/min Est GFR (Non-Af Amer) ml/min BUN/Creatinine Ratio (10-20) Glucose (70-99(Fasting)) mg/dl Calcium (8.5-10.1) mg/dl Magnesium (1.7-2.4) mg/dl Total Bilirubin (0.2-1.0) mg/dl AST (13-39) U/L ALT (7-52) U/L Alkaline Phosphatase (34-104) U/L Troponin I High Sens (0-14) pg/ml Total Protein (6.0-8.3) gm/dl Albumin (3.4-5.0) gm/dl Globulin (2.5-4.0) gm/dl Albumin/Globulin Ratio (0.9-2) Urine Color Dark Yellow Urine Appearance Clear (Clear) Urine pH 5.0 (4.5-7.5) Ur Specific [place] 1.022 (1.000-1.030) Urine Protein 1+ H (Negative) Urine Glucose (UA) Negative (Negative) Urine Ketones Trace H (Negative) Urine Blood Negative (Negative) Urine Nitrite Negative (Negative) Urine Bilirubin Negative (Negative) Urine Urobilinogen Negative (Negative) Ur Leukocyte Esterase Negative (Negative) Urine WBC (Auto) 1-5 (0-5) /hpf Urine RBC (Auto) 0-4 (0-4) /hpf U Hyaline Cast (Auto) 5-10 H (0-5) /lpf U Epithel Cells (Auto) >30 H (0-5) /lpf Urine Bacteria (Auto) Negative (Negative) SARS-CoV-2 (PCR) POSITIVE A* (Negative) Influenza Type A (PCR) Negative (Neg) Influenza Type B (PCR) Negative (Neg) RSV (RT-PCR) Negative (Neg) Imaging Data Attestation: I personally reviewed and interpreted this imaging study as follows: My Impression: Chest x-ray interpreted by me emphysematous changes no obvious infiltrate or effusion Radiologist's Impression: CT brain per radiology no intracranial hemorrhage mass-effect or edema no evidence of acute cortical stroke MDM Narrative Medical decision making differential diagnosis includes TIA, electrolyte abnorma lity, infection, urinary tract infection, metabolic derangement, COPD exacerbation. Plan is to check labs, CT, chest x-ray, EKG, observe Patient was evaluated for weakness low pulse ox was found to be COVID-positive CT scan is negative for intracranial hemorrhage or stroke. Patient symptoms likely contributed to the weakness are COVID and hypoxia. Case discussed with the hospitalist for admission from [facility] Impression & Plan Dizziness, COVID-19, Hypoxia Discharge Plan Visit Data Chief Complaint: Weakness Stated Complaint: WEAKNESS, LOSS OF BALANCE ED Provider: Thomas Mir Discharge Problem: Dizziness, COVID-19, Hypoxia Patient Disposition: Being Evaluated by Hospitalist Forms Stand Alone Forms: My [facility] Prescriptions Prescriptions: No Action amlodipine 10 mg tablet 10 mg PO QPM Qty: 90 1RF losartan 50 mg tablet 50 mg PO DAILY Qty: 90 1RF (DME) Cam walking shoe See Rx Instructions .Route .MEDSUPPLY Qty: 1 0RF Rx Instructions: As directed clopidogrel [Plavix] 75 mg tablet 75 mg PO QAM Qty: 90 1RF potassium chloride 20 mEq tablet extended release 20 meq PO BID Qty: 180 1RF metoprolol succinate 100 mg tablet extended release 24 hr 100 mg PO QAM Qty: 90 1RF atorvastatin 80 mg tablet 80 mg PO QPM Qty: 90 1RF sertraline 100 mg tablet 100 mg PO DAILY Qty: 90 1RF acetaminophen [Tylenol Extra Strength] 500 mg tablet 500 mg PO Q6H PRN (Reason: Pain) aspirin [Kojo Low Dose Aspirin] 81 mg tablet,delayed release (DR/EC) 81 mg PO QAM Referrals Referrals: Jamila Moncada DO [Primary Care Provider] -
[2022-06-22 00:07] LABS: Appearance Urine Clear (Clear); Bacteria Urine Automated Negative (Negative); Bilirubin Urine Negative (Negative); Blood Urine Negative (Negative); Color Urine Dark Yellow; Epithelial Cell Urine Auto >30 /lpf (0-5); Glucose Urine UA Negative (Negative); Ketones Urine Trace (Negative); Leukocyte Esterase Urine Negative (Negative); Nitrite Urine Negative (Negative); Protein Urine 1+ (Negative); RBC Urine Automated 0-4 /hpf (0-4); Specific Gravity Urine 1.022 (1.000-1.030); Urobilinogen Urine Negative (Negative)
[2022-06-22 00:53] LABS: Influenza A virus by PCR Negative (Neg); Influenza B virus by PCR Negative (Neg); RSV by PCR Negative (Neg)
[2022-06-22 00:57] LABS: SARS CoV2 RNA(COVID-19)Cepheid POSITIVE (Negative)
[2022-06-22] MEDS ORDERED: methylPREDNISolone 125 MG/2 ML VIAL IV STA (01:33)
--- NOTE | 2022-06-22 02:36 | History & Physical Report ---
Date of Service June 22, 2022 Assessment & Plan (1) COVID-19: Plan: COVID-19 infection with hypoxia, confusion and generalized weakness- Dexamethasone 6mg IV daily Remedesevir IV per protocol..pulse ox 89% on room air Guaifenesin ER 1200mg PO BID Albuterol HFA 2 puffs QID and q2h prn NC O2, titrate to keep pulse ox around 94% (2) Hypoxia: Plan: see above (3) Confusion: Plan: at least in part secondary to hypoxia (4) Hypertension: Plan: HTN/ PAD- Continue amlodipine, asa, clopidogrel, losartan, metoprolol succinate and KCl (5) Vitamin D deficiency: Plan: place on vitamin D 5000iu daily (6) Prediabetes: Plan: glucose 117 on admission, if worsens on IV steroids, will start accuchecks and SSI (7) Renal cell cancer: (8) Peripheral arterial occlusive disease: (9) Hearing loss, bilateral: Plan: no hearing aids (10) Anxiety: Plan: anxiety with depression- continue sertraline (11) Depression: Plan: see above. (12) Subclavian artery stenosis: History of Present Illness Chief Complaint: The patient presents to the ED with complaint of acute onset of SOB, PADILLA and generalized weakness earlier in the day today. Workup in the ED included a pulse ox of 89% on room air. Laboratory workup included a positive COVID-19 test. Primary Care Provider: Jamila Moncada DO The patient is a 77 year old female with PMH including prediabetes, renal cell cancer, vitamin D deficiency, CTS, PAD, allergic rhinitis, B/L hearing loss, GERD, anxiety with depression, Carotid artery stenosis, HTN, pulmonary nodule, and subclavian artery stenosis. She presents to the ED with symptoms and workup as above. Allergies Allergy/AdvReac Type Severity Reaction Status Date / Time codeine AdvReac Intermediate STOMACH Verified 06/22/22 00:08 PAIN Home Medications Medication Instructions Recorded Confirmed Type aspirin 81 mg tablet,delayed 81 mg PO QAM 04/25/20 06/22/22 History release (Kojo Low Dose Aspirin) acetaminophen 500 mg tablet 500 mg PO Q6H PRN Pain 10/17/20 06/22/22 History (Tylenol Extra Strength) amlodipine 10 mg tablet 10 mg PO QPM #90 tabs 12/26/21 06/22/22 Rx losartan 50 mg tablet 50 mg PO DAILY #90 tabs 12/26/21 06/22/22 Rx Cam walking shoe #1 ea 03/02/22 Rx clopidogrel 75 mg tablet (Plavix) 75 mg PO QAM #90 tabs 03/19/22 06/22/22 Rx potassium chloride 20 mEq 20 meq PO BID #180 tabs 05/15/22 06/22/22 Rx tablet,extended release metoprolol succinate 100 mg 100 mg PO QAM #90 tabs 06/02/22 06/22/22 Rx tablet,extended release 24 hr atorvastatin 80 mg tablet 80 mg PO QPM #90 tabs 06/11/22 06/22/22 Rx sertraline 100 mg tablet 100 mg PO DAILY #90 tabs 06/11/22 06/22/22 Rx Past Med/Surg History Medical History Acid reflux Allergic rhinitis Anxiety 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 03/01/2020. Peripheral arterial occlusive disease Prediabetes Pulmonary nodule Benign Renal cell cancer (09/2020) s/p R partial nephrectomy Subclavian artery stenosis Vitamin D deficiency Surgical History History of partial nephrectomy (10/02/20) R S/P arterial stent (02/2020) stent mesenteric artery, prox segment S/P carotid endarterectomy (12/15/17) L sided S/P hip replacement (07/07/21) 06/2021 right hip Status post laparoscopic cholecystectomy (09/13/17) Family History Mother Hepatic cirrhosis Diabetes Denies family history of Ovarian cancer Prostate cancer Myocardial infarction Breast cancer Colorectal cancer Social History Smoking Status: Former smoker Tobacco Type: Cigarettes Age Started Using Tobacco: 15; Age Quit Using Tobacco: 75; Second Hand Exposure: No; Hx Alcohol Use: No Hx Substance Use: No Preferred Language: Faroese Communication Ability: Effective Visual Impairment: No Limitations Hearing Ability: Normal Non Destructive Testing Supervisor Required: No Beliefs That Will Affect Care: None marital status: / Current Living Situation: Alone current occupational status: retired How many Children do You have: 5 Feels Safe at Home: Yes Childhood Exposure to Second-Hand Smoke: No caffeine: Yes during the past year weight has: remained stable Dental Care, Regularly: Yes Physical Activity Frequency: Does not Exercise Seatbelt Use: always Sunscreen Use: No (stays out of sun) Assistive Devices: Glasses Review of Systems Review of Systems: The patient denies chest pain, palpitations, cough, lower extremity swelling, sore throat, fevers, chills, sweats, nausea, vomiting, diarrhea , constipation, abdominal pain, pelvic pain, blood in urine or stool, dysuria, urinary frequency or urgency, lightheadedness, dizziness, headache, memory loss, loss of consciousness, rash, abnormal bruising or bleeding, imbalance, focal weakness, numbness or tingling in arms or legs, generalized arthralgias or myalgias, back or neck pain, or night sweats. The review of systems is otherwise negative other than for that already noted above, and at least 10 systems have been reviewed. Physical Exam Physical Exam: The patient is awake, alert and oriented 3, hard of hearing, normocephalic and atraumatic, lying in bed and in no acute distress. HEENT--PERRL, EOMI, mucous membranes and oropharynx normal. Neck--supple. No JVD. No bruits. Thyroid normal, trachea midline, no adenopathy. Heart--normal S1 and S2. No murmurs, rubs or gallops. Lungs--clear bilaterally, no respiratory distress, no accessory muscle use. Abdomen--normal bowel sounds and soft. Nontender. Nondistended, no hernias or masses, no organomegaly. Extremities--no cyanosis or clubbing. No edema. Dermatologic--normal skin turgor, normal color, no abnormal lymph nodes, no rash. Neurologic--cranial nerves II through XII grossly intact. Rheumatologic--normal range of motion. Psychiatric--normal affect. Results & Data Results & Data ([facility]) Vital Signs (Past 12 Hours) Vital Signs Temp Pulse Resp BP Pulse Ox O2 Del Method O2 Flow Rate 06/22/22 02:01 72 20 95 06/22/22 02:01 154/96 H 06/22/22 02:00 71 20 96 06/22/22 01:31 73 21 97 06/22/22 01:31 154/71 H 06/22/22 02:00 Nasal Cannula 3 06/22/22 00:37 Nasal Cannula 06/22/22 01:30 73 14 98 06/22/22 01:20 70 18 93 06/22/22 01:10 70 20 96 06/22/22 01:01 72 16 96 06/22/22 01:01 164/66 H 06/22/22 01:00 69 18 97 06/22/22 00:50 70 21 96 06/22/22 00:40 71 18 97 06/22/22 00:32 142/79 H 06/22/22 00:32 71 19 97 06/22/22 00:30 72 17 96 06/22/22 00:20 73 17 91 06/22/22 00:10 75 19 89 L 06/22/22 00:02 122/67 06/22/22 00:02 81 25 H 95 06/22/22 00:00 83 18 95 06/21/22 23:57 84 20 89 L 06/21/22 23:24 73 18 98 06/21/22 22:38 37.2 C 87 18 133/92 89 L Room Air Laboratory Results Laboratory Results WBC 9.06 K/ul (4.8-10.8) 06/21/22 22:49 RBC 5.00 M/uL (3.93-5.22) 06/21/22 22:49 Hgb 14.3 g/dl (12.0-16.0) 06/21/22 22:49 Hct 43.7 % (34.1-44.9) 06/21/22 22:49 MCV 87.4 fL (80.0-100.0) 06/21/22 22:49 MCH 28.6 pg (25.0-34.0) 06/21/22 22:49 MCHC 32.7 g/dL (32.0-36.0) 06/21/22 22:49 RDW Std Deviation 51.8 fL (36.4-46.3) H 06/21/22 22:49 RDW Coeff of Remedios 16.1 % (11.5-14.5) H 06/21/22 22:49 Plt Count 223 K/uL (130-400) 06/21/22 22:49 MPV 11.1 fL (9.4-12.3) 06/21/22 22:49 Immature Gran % (Auto) 0.9 % 06/21/22 22:49 Neut % (Auto) 79.9 % 06/21/22 22:49 Lymph % (Auto) 6.6 % 06/21/22 22:49 [place] % (Auto) 10.9 % 06/21/22 22:49 Eos % (Auto) 1.1 % 06/21/22 22:49 Baso % (Auto) 0.6 % 06/21/22 22:49 Neut # (Auto) 7.24 K/uL (1.4-6.5) H 06/21/22 22:49 Lymph # (Auto) 0.60 K/uL (1.2-3.4) L 06/21/22 22:49 [place] # (Auto) 0.99 K/uL (0.24-0.82) H 06/21/22 22:49 Eos # (Auto) 0.10 K/uL (0-0.50) 06/21/22 22:49 Baso # (Auto) 0.05 K/uL (0-0.2) 06/21/22 22:49 Immature Gran # (Auto) 0.08 K/uL (0.00-0.02) H 06/21/22 22:49 PT 10.5 Seconds (9.0-12.0) 06/21/22 22:49 INR 1.0 (0.9-1.1) 06/21/22 22:49 Sodium 135 mmol/L (136-145) L 06/21/22 22:49 Potassium 4.3 mmol/L (3.5-5.1) 06/21/22 22:49 Chloride 100 mmol/L (98-107) 06/21/22 22:49 Carbon Dioxide 27 mmol/L (21-32) 06/21/22 22:49 Anion Gap 8 (3-11) 06/21/22 22:49 BUN 22 mg/dl (6-23) 06/21/22 22:49 Creatinine 0.71 mg/dl (0.6-1.2) 06/21/22 22:49 Est Cr Clr Drug Dosing Not Reportable 06/21/22 22:49 Est GFR ( Amer) 95.2 ml/min 06/21/22 22:49 Est GFR (Non-Af Amer) 82.2 ml/min 06/21/22 22:49 BUN/Creatinine Ratio 31.0 (10-20) H 06/21/22 22:49 Glucose 117 mg/dl (70-99(Fasting)) H 06/21/22 22:49 Calcium 9.2 mg/dl (8.5-10.1) 06/21/22 22:49 Magnesium 1.9 mg/dl (1.7-2.4) 06/21/22 22:49 Total Bilirubin 0.6 mg/dl (0.2-1.0) 06/21/22 22:49 AST 17 U/L (13-39) 06/21/22 22:49 ALT 12 U/L (7-52) 06/21/22 22:49 Alkaline Phosphatase 83 U/L (34-104) 06/21/22 22:49 Troponin I High Sens 8.8 pg/ml (0-14) 06/21/22 22:49 Total Protein 7.1 gm/dl (6.0-8.3) 06/21/22 22:49 Albumin 4.3 gm/dl (3.4-5.0) 06/21/22 22:49 Globulin 2.8 gm/dl (2.5-4.0) 06/21/22 22:49 Albumin/Globulin Ratio 1.5 (0.9-2) 06/21/22 22:49 Urine Color Dark Yellow 06/21/22 23:56 Urine Appearance Clear (Clear) 06/21/22 23:56 Urine pH 5.0 (4.5-7.5) 06/21/22 23:56 Ur Specific [place] 1.022 (1.000-1.030) 06/21/22 23:56 Urine Protein 1+ (Negative) H 06/21/22 23:56 Urine Glucose (UA) Negative (Negative) 06/21/22 23:56 Urine Ketones Trace (Negative) H 06/21/22 23:56 Urine Blood Negative (Negative) 06/21/22 23:56 Urine Nitrite Negative (Negative) 06/21/22 23:56 Urine Bilirubin Negative (Negative) 06/21/22 23:56 Urine Urobilinogen Negative (Negative) 06/21/22 23:56 Ur Leukocyte Esterase Negative (Negative) 06/21/22 23:56 Urine WBC (Auto) 1-5 /hpf (0-5) 06/21/22 23:56 Urine RBC (Auto) 0-4 /hpf (0-4) 06/21/22 23:56 U Hyaline Cast (Auto) 5-10 /lpf (0-5) H 06/21/22 23:56 U Epithel Cells (Auto) >30 /lpf (0-5) H 06/21/22 23:56 Urine Bacteria (Auto) Negative (Negative) 06/21/22 23:56 SARS-CoV-2 (PCR) POSITIVE (Negative) A* 06/22/22 00:06 Influenza Type A (PCR) Negative (Neg) 06/22/22 00:06 Influenza Type B (PCR) Negative (Neg) 06/22/22 00:06 RSV (RT-PCR) Negative (Neg) 06/22/22 00:06 Diagnostic Findings [facility] Patient: YG GARCIA (Female) : 45 Status: ER Date: 06/21/22 23:47 Room #: History: WEAKNESS, AMS Slices: 170 Priors: Tech: George Gao @ [phone] Exams: CT HEAD Contrast: Accession Numbers: [id number] Referring Physician: DHARA MIR Preliminary Findings Only See Final Report For Complete Findings CT HEAD: No ICH, mass effect or edema. No evidence of acute cortical stroke. Periventricular small vessel ischemic change. Visualized sinuses and mastoid air cells are clear. Radiologist: Evan Soto MD Study ready at 23:52 and initial results transmitted at 23:53 *This report constitutes a preliminary interpretation only. Non-acute findin gs felt to be unrelated to the clinical presentation may not be discussed in this report. The study will be interpreted and a final report will be generated by the local Radiologist the following shift. To reach the [facility] radiology department call [phone]. If a discrepancy is found between the preliminary and final interpretations of this study, please notify us via our Client Portal at [email or web address], under QA Exams. You can also fax this report with a description of the discrepancy, or include the final report, to our daytime fax number [phone]. If faxing, please indicate the severity of discrepancy using one of the following categories: [ ] 1 - Agree/Informational [ ] 2 - Unlikely to Affect Management [ ] 3 - Possible Eventual Change of Management [ ] 4 - Probable Immediate Change of Management For all other patient related information, please fax us at [phone]. [id number] Code Status & VTE Plan Code Status full code VTE Prophylaxis Plan VTE Prophylaxis will be ordered: Yes
--- NOTE | 2022-06-22 03:28 | Billing Data ---
Date of Service June 22, 2022 Coding Level of Care Code 13086 Initial Inpt Care Lvl 3
[2022-06-22] MEDS ORDERED: ONDANSETRON INJ 2 MG/ML 2 ML VIAL IV PRN (05:03)
[2022-06-22] MEDS ORDERED: ACETAMINOPHEN 500 MG TAB PO PRN (05:03)
[2022-06-22] MEDS ORDERED: REMDESIVIR 200 MG in SODIUM CHLORIDE 0.9% 210 ML IV STA (05:03)
[2022-06-22] MEDS ORDERED: dexAMETHasone 6 MG in SYRINGE 0 ML IV ONE (05:15)
[2022-06-22] MEDS ORDERED: Patient's HEIGHT &/or WEIGHT Needed SCH (05:30)
[2022-06-22] MEDS: ALBUTEROL HFA 8 GM INHALER INH SCH ×4 (06:50→19:58)
--- NOTE | 2022-06-22 08:06 | CT Scan Report ---
CT OF THE HEAD WITHOUT CONTRAST CLINICAL HISTORY: Weakness. Altered mental status. COMPARISON STUDY: No previous studies for comparison. CT DOSE: 1612.45 mGy.cm TECHNIQUE: Helical axial images of the head were obtained without IV contrast. Automated exposure con trol was utilized for the study. A dose lowering technique was utilized adhering to the principles o f ALARA. FINDINGS: This exam is mildly compromised by motion artifact. No acute intracranial hemorrhage, midli ne shift or mass effect is present. The ventricular system is unremarkable. The basal cisterns are pa tent. No extra-axial collections are present. There are no findings to suggest acute dural sinus thro mbosis or acute territorial infarct. No significant calvarial abnormalities are present. Visualized p ortions of the sinuses and mastoid air cells are clear. IMPRESSION: No acute intracranial findings. Exam mildly compromised by motion artifact. ACT 112: Negative or not required by law. Electronically signed by: Lisandro Piña M.D. 06/22/2022 8:04 AM
[2022-06-22 08:23] LABS: Basophils # (auto) 0.03 K/uL (0-0.2); Basophils % (auto) 0.5 %; Hematocrit (blood only) 42.1 % (34.1-44.9); Hemoglobin 13.7 g/dl (12.0-16.0); Immature Granulocytes # (auto) 0.05 K/uL (0.00-0.02); Immature Granulocytes % (auto) 0.9 %; Lymphocytes # (auto) 0.51 K/uL (1.2-3.4); Lymphocytes % (auto) 9.2 %; Mean Corpuscular Hemoglobin 28.2 pg (25.0-34.0); Mean Corpuscular Hgb Conc 32.5 g/dL (32.0-36.0); Mean Corpuscular Volume 86.8 fL (80.0-100.0); Mean Platelet Volume 10.6 fL (9.4-12.3); Monocytes # (auto) 0.11 K/uL (0.24-0.82); Neutrophils # (auto) 4.83 K/uL (1.4-6.5); Neutrophils % (auto) 87.4 %; Platelet Count 185 K/uL (130-400); RDW Standard Deviation 50.5 fL (36.4-46.3); Red Blood Count 4.85 M/uL (3.93-5.22); White Blood Count 5.53 K/ul (4.8-10.8)
[2022-06-22] MEDS: guaiFENesin 600 MG TABCR PO SCH ×2 (08:46→21:25)
[2022-06-22] MEDS: CHOLECALCIFEROL 5,000 UNITS 125 MCG TAB PO SCH (08:46)
[2022-06-22] MEDS: SERTRALINE HCL 100 MG TABLET PO SCH (08:46)
[2022-06-22 08:47] LABS: Albumin Globulin Ratio 1.5 (0.9-2); BUN Creatinine Ratio 34.4 (10-20); Bilirubin,Total 0.5 mg/dl (0.2-1.0); C Reactive Protein 1.18 mg/dl (0-0.5); Calcium 8.6 mg/dl (8.5-10.1); Creatinine Clr Calc Pharmacy 78.5 ml/min; Est GFR (African American) 99.8 ml/min; Est GFR (Non-African American) 86.1 ml/min; Globulin 2.6 gm/dl (2.5-4.0); Potassium 4.2 mmol/L (3.5-5.1); Total Protein 6.6 gm/dl (6.0-8.3)
[2022-06-22] MEDS: LOSARTAN POTASSIUM 50 MG TAB PO SCH (08:47)
[2022-06-22] MEDS: dexAMETHasone 6 MG in SYRINGE 0 ML IV SCH (08:47)
[2022-06-22] MEDS: CLOPIDOGREL BISULFATE 75 MG TAB PO SCH (08:47)
[2022-06-22] MEDS: POTASSIUM CHLORIDE CRTAB 20 MEQ TABCR PO SCH ×2 (08:47→21:26)
[2022-06-22] MEDS: METOPROLOL SUCC 50MG EXT REL TAB PO SCH (08:47)
[2022-06-22] MEDS: ASPIRIN 81 MG ECTAB PO SCH (08:47)
[2022-06-22] MEDS: ENOXAPARIN INJ 40 MG/0.4 ML SYR SQ SCH (08:53)
--- NOTE | 2022-06-22 08:57 | XRay Report ---
XR chest 1V portable HISTORY: weakness COMPARISON: Chest 02/29/2020. FINDINGS: No pneumothorax. No pleural effusions. The cardiac silhouette is mildly enlarged. No new fo sunshine lung consolidations to suggest a pneumonia. No evidence for pulmonary edema. Calcifications withi n the aortic knob. IMPRESSION: Mild cardiomegaly. ACT 112: Negative or not required by law. Electronically signed by: Gomez Cesar M.D. 06/22/2022 8:56 AM
[2022-06-22] MEDS ORDERED: PNEUMOCOCCAL POLYSACCHARIDES 25 MCG/0.5 ML VIAL/SYR IM ONE (09:00)
[2022-06-22] MEDS ORDERED: INFLUENZA VACCINE HIGH DOSE PF 65+ 0.7 ML SYR IM ONE (09:00)
--- NOTE | 2022-06-22 10:53 | Electrocardiogram Report ---
Test Reason : Blood Pressure : / mmHG Vent. Rate : 079 BPM Atrial Rate : 079 BPM P-R Int : 162 ms QRS Dur : 082 ms QT Int : 372 ms P-R-T Axes : 054 002 041 degrees QTc Int : 426 ms Normal sinus rhythm Possible Left atrial enlargement Borderline ECG When compared with ECG of 29-FEB-2020 14:39, No significant change was found Confirmed by Sabas Ramos ([id number]) on 06/22/2022 10:53:14 AM Referred By: REFERRED SELF Confirmed By:Preston Ramos
--- NOTE | 2022-06-22 18:53 | Communication Note ---
Date of Service: June 22, 2022 Patient was seen and examined but admitted the same day therefore not be billing for this encounter. She reports being relatively asymptomatic this time. Ambulating to the toilet and back without significant shortness of breath. She remains hypoxic with O2 sats below 94% majority of the time. Review of most recent primary care visit showed her pulse oximetry to be 98% on room air. Despite low CRP, minimal chest x-ray changes and lungs clear to auscultation she remains a candidate for remdesivir and dexamethasone. She is she is feeling back to her baseline self however will get a 2 step in the morning with potential discharge tomorrow. Telemetry reviewed without any significant arrhythmias and normal sinus rhythm. She appears stable to stepdown to [facility] at this time.
[2022-06-22] MEDS ORDERED: amLODIPine BESYLATE 5 MG TAB PO SCH (21:00)
[2022-06-22] MEDS ORDERED: ATORVASTATIN 40 MG TAB PO SCH (21:00)
[2022-06-23] MEDS: ALBUTEROL HFA 8 GM INHALER INH SCH ×4 (06:24→17:22)
[2022-06-23 08:57] LABS: Basophils # (auto) 0.02 K/uL (0-0.2); Basophils % (auto) 0.2 %; Hematocrit (blood only) 41.4 % (34.1-44.9); Hemoglobin 13.7 g/dl (12.0-16.0); Immature Granulocytes # (auto) 0.05 K/uL (0.00-0.02); Immature Granulocytes % (auto) 0.6 %; Lymphocytes # (auto) 1.48 K/uL (1.2-3.4); Lymphocytes % (auto) 16.6 %; Mean Corpuscular Hemoglobin 28.7 pg (25.0-34.0); Mean Corpuscular Hgb Conc 33.1 g/dL (32.0-36.0); Mean Corpuscular Volume 86.8 fL (80.0-100.0); Mean Platelet Volume 11.3 fL (9.4-12.3); Monocytes # (auto) 1.37 K/uL (0.24-0.82); Monocytes % (auto) 15.4 %; Neutrophils # (auto) 5.97 K/uL (1.4-6.5); Neutrophils % (auto) 67.2 %; Platelet Count 193 K/uL (130-400); RDW Coefficient of Variation 16.1 % (11.5-14.5); RDW Standard Deviation 51.4 fL (36.4-46.3); Red Blood Count 4.77 M/uL (3.93-5.22); White Blood Count 8.89 K/ul (4.8-10.8)
[2022-06-23 09:24] LABS: Albumin Globulin Ratio 1.4 (0.9-2); Albumin Level 3.7 gm/dl (3.4-5.0); BUN Creatinine Ratio 52.5 (10-20); Bilirubin,Total 0.4 mg/dl (0.2-1.0); Calcium 8.5 mg/dl (8.5-10.1); Creatinine Clr Calc Pharmacy 82.3 ml/min; Est GFR (African American) 101.3 ml/min; Est GFR (Non-African American) 87.4 ml/min; Globulin 2.6 gm/dl (2.5-4.0); Magnesium 2.4 mg/dl (1.7-2.4); Potassium 4.3 mmol/L (3.5-5.1); Total Protein 6.3 gm/dl (6.0-8.3)
[2022-06-23] MEDS: SERTRALINE HCL 100 MG TABLET PO SCH (09:29)
[2022-06-23] MEDS: POTASSIUM CHLORIDE CRTAB 20 MEQ TABCR PO SCH (09:29)
[2022-06-23] MEDS: ASPIRIN 81 MG ECTAB PO SCH (09:29)
[2022-06-23] MEDS: METOPROLOL SUCC 50MG EXT REL TAB PO SCH (09:29)
[2022-06-23] MEDS: LOSARTAN POTASSIUM 50 MG TAB PO SCH (09:30)
[2022-06-23] MEDS: guaiFENesin 600 MG TABCR PO SCH (09:30)
[2022-06-23] MEDS: CLOPIDOGREL BISULFATE 75 MG TAB PO SCH (09:30)
[2022-06-23] MEDS: CHOLECALCIFEROL 5,000 UNITS 125 MCG TAB PO SCH (09:30)
[2022-06-23] MEDS: dexAMETHasone 6 MG in SYRINGE 0 ML IV SCH (09:31)
[2022-06-23] MEDS: ENOXAPARIN INJ 40 MG/0.4 ML SYR SQ SCH (09:32)
[2022-06-23] MEDS ORDERED: REMDESIVIR 100 MG in SODIUM CHLORIDE 0.9% 230 ML IV SCH (12:00)
--- NOTE | 2022-06-23 14:14 | Discharge Summary ---
Date of Service June 23, 2022 Admission HPI Per Admitting Provider The patient is a 77 year old female with PMH including prediabetes, renal cell cancer, vitamin D deficiency, CTS, PAD, allergic rhinitis, B/L hearing loss, GERD, anxiety with depression, Carotid artery stenosis, HTN, pulmonary nodule, and subclavian artery stenosis. She presents to the ED with symptoms and workup as above. Principal Diagnosis COVID-19 Hypoxia Discharge Exam Constitutional WD/WN, vitals as above ENMT external ear and nose normal, oropharynx normal Neck trachea midline, no thyromegaly Respiratory normal respiratory effort, lungs clear to auscultation Cardiovascular RRR, no murmur, no edema Gastrointestinal (Abdomen) normal bowel sounds, soft, nontender, no hepatosplenomegaly Musculoskeletal no cyanosis or clubbing, extremities motor strength 5/5 Skin no rashes, warm and dry Psychiatric A+Ox3, euthymic affect Discharge Data Allergies Allergy/AdvReac Type Severity Reaction Status Date / Time codeine AdvReac Intermediate STOMACH Verified 06/22/22 00:08 PAIN Consultations 06/22/22 01:56 ED Decision to Admit Stat Ordered Studies 06/21/22 23:15 CT head/brain wo con Urgent IMPRESSION: No acute intracranial findings. Exam mildly compromised by motion artifact. Hospital Course (1) COVID-19: Klaudia Schultz is a 77 year old female admitted to [facility] from June 22 to June 23, 2022 due to weakness and shortness of breath. She was diagnosed with COVID-19 pneumonia and hypoxia. She was treated with remdesivir and intravenous dexamethasone. She remained stable while here and on discharge requiring 1 L/min of oxygen on exertion only. She was advised to follow up with her primary care provider after isolation to see if she still needs oxygen. She was prescribed dexamethasone to finish a 10 day course. Given improvement with her shortness of breath with albuterol inhaler she was advised to continue this as needed. Consider follow-up lung function testing with your primary care physician after full recovery. (2) Hypoxia: (3) Confusion: (4) Hypertension: (5) Vitamin D deficiency: (6) Prediabetes: (7) Renal cell cancer: (8) Peripheral arterial occlusive disease: (9) Hearing loss, bilateral: no hearing aids (10) Anxiety: anxiety with depression- continue sertraline (11) Depression: see above. (12) Subclavian artery stenosis: Total Time Total Time Spent Total Time Spent (In Minutes): 35 Discharge Plan Discharge Items Patient Disposition: Home - Self-Care Reason For Visit: COVID-19 INFECTION, WITH HYPOXIA Discharge Diagnosis: COVID-19 Hypoxia Activity: Resume your previous activity Non-emergency contact: Primary Care Provider Call non-emergency contact if: you have any medication questions and your symptoms worsen Follow-up/Referrals: Jamila Moncada DO [Primary Care Provider] - Diet: Regular Addtl Attending Provider Instructions: You were admitted to [facility] from June 22 to June 23, 2022 due to weakness and shortness of breath. He was diagnosed with COVID-19 pneumonia and low oxygen saturations. You were treated with remdesivir and intravenous dexamethasone. You remained stable while here and on discharge requiring 1 L/min of oxygen on exertion only. Oxygen has been prescribed for you - please follow-up with your primary care physician after isolation period to see if you can come off of this. Recommend completing the course of dexamethasone as prescribed below. Please follow CDC isolation guidelines: https://www.cdc.gov/coronavirus/2019-ncov/your-health/isolation.html Recommend continuing your albuterol inhaler given during hospitalization as needed for shortness of breath or wheezing. This has not been prescribed to pharmacy. Consider follow-up lung function testing with your primary care physician after full recovery. Pending Studies at Discharge: No Stand-Alone Forms: [facility], Smoking Cessation Medications and DC Order Prescriptions: New albuterol sulfate 90 mcg/actuation HFA aerosol inhaler 2 inh inhalation Q6H PRN (Reason: shortness of breath or wheezing) Qty: 8.5 0RF Continued (DME) Cam walking shoe See Rx Instructions .Route .MEDSUPPLY Qty: 1 0RF Rx Instructions: As directed potassium chloride 20 mEq tablet extended release 20 meq PO BID Qty: 180 1RF metoprolol succinate 100 mg tablet extended release 24 hr 100 mg PO QAM Qty: 90 1RF atorvastatin 80 mg tablet 80 mg PO QPM Qty: 90 1RF sertraline 100 mg tablet 100 mg PO DAILY Qty: 90 1RF acetaminophen [Tylenol Extra Strength] 500 mg tablet 500 mg PO Q6H PRN (Reason: Pain) aspirin [Kojo Low Dose Aspirin] 81 mg tablet,delayed release (DR/EC) 81 mg PO QAM No Action amlodipine 10 mg tablet 10 mg PO QPM Qty: 90 1RF clopidogrel [Plavix] 75 mg tablet 75 mg PO QAM Qty: 90 1RF losartan 50 mg tablet 50 mg PO DAILY Qty: 90 1RF Discharge Orders: Discharge Order (Routine); Ordered 06/23/22 Ordered By: Chris Demarco Admission Data Admit Date/Time: 06/23/22 14:12 Attending Provider: Chris Demarco Admit Provider: Clint Barth Primary Care Provider: Jamila Moncada Other Interventions: Discharge Summary Assessment (RN) Last Done: 06/23/22 17:23 Coding Level of Care Code D/C DAY MANAGEMENT >30 MINS Diagnoses COVID-19 U07.1 Hypoxia R09.02 Confusion R41.0 Hypertension I10 Vitamin D deficiency E55.9 Prediabetes R73.03 Renal cell cancer C64.9 Peripheral arterial occlusive disease I77.9 Hearing loss, bilateral H91.93 Anxiety F41.9 Depression F32.9 Subclavian artery stenosis I77.1
== END 2022-06-23 17:23 | disposition home or self-care (01) | DRG 178 ==
LOC: ED 22:36 → INTOOBSV 06-22 02:35 → EDINP 06-22 02:35 → SUATTDRO 06-22 02:35 → EDINP 06-22 05:04